=== PATIENT | female | born 1940 | race Asian ===

== ENCOUNTER 2016-11-04 12:19 | Emergency (ER) | payer MEDICARE, OTHER ==
[~2016-11-04] VITALS: Ht 152.4 cm; Wt 63.5 kg
[2016-11-04] MEDS ORDERED: DIPHTH,PERTUSS(ACELL),TET TOX 0.5 ML DISP.SYRIN. VAX IM ONE (12:45)
--- NOTE | 2016-11-04 12:50 | PHYS DOC ---
Past Medical History Past Medical History: Diabetes-Type II Additional Past Medical Histor: hyperlipidemia depression dementia gerd Alcohol Use: None Drug Use: None Adult General Chief Complaint Chief Complaint: MECHANICAL FALL HPI HPI 76-year-old nonverbal female presenting to the emergency department today with a witnessed fall without loss of consciousness. She sustained head injury and head trauma. She has a wound on the left side of her head. She has at baseline currently. Onset today. Location head. Duration constant. No alleviating or exacerbating factors. The patient is not on blood thinners. Review of systems is negative for chest pain shortness of breath abdominal pain nausea or vomiting. Negative for extremity injuries. All other review of systems is negative unless otherwise noted in history of present illness. Review of Systems Review of Systems SEE ABOVE. Current Medications Current Medications Current Medications Medications (Trade) Dose Ordered Sig/Scott Start Time Stop Time Status Last Admin Dose Admin Diphtheria/ Tetanus/Acell Pertussis (Boostrix) 0.5 ml ONCE ONCE 11/04/16 12:45 11/04/16 12:46 DC 11/04/16 13:06 0.5 ML Allergies Allergies Allergies Coded Allergies Type Severity Reaction Last Updated Verified doxycycline Allergy Unknown 11/04/16 Yes Physical Exam Physical Exam Constitutional: Well developed, well nourished, no acute distress, non-toxic appearance. HENT: Normocephalic, small hematoma on left scalp with 2cm laceration, bilateral external ears normal, oropharynx moist, no oral exudates, nose normal. [] Eyes: PERRLA, EOMI, conjunctiva normal, no discharge. [] Neck: Normal range of motion, no tenderness, supple, no stridor. Cardiovascular:Heart rate regular rhythm, no murmur [] Lungs & Thorax: Bilateral breath sounds clear to auscultation Abdomen: Bowel sounds normal, soft, no tenderness, no masses, no pulsatile masses. Skin: Warm, dry, no erythema, no rash. [] Back: No tenderness, no CVA tenderness. Extremities: No tenderness, no cyanosis, no clubbing, ROM intact, no edema. Neurologic: Alert and oriented X 3, normal motor function, normal sensory function, no focal deficits noted. Psychologic: Affect normal, judgement normal, mood normal. Current Patient Data Vital Signs Vital Signs Date Time Temp Pulse Resp B/P (MAP) Pulse Ox O2 Delivery O2 Flow Rate FiO2 11/04/16 12:20 98.1 91 14 176/81 (112) 95 Room Air 98.1 EKG EKG [] Radiology/Procedures Radiology/Procedures [] Course & Med Decision Making Course & Med Decision Making Pertinent Labs and Imaging studies reviewed. (See chart for details) [] 76-year-old female presenting to the emergency department today with mechanical fall and head trauma. Pertinent physical exam findings showed small hematoma on the left side of the scalp with a small laceration. Laceration was repaired in the emergency department with angella. CT of the head and neck were obtained which were unremarkable. The patient was then discharged home in stable condition to follow up with their primary care physician over the next 2- 3 days. They were to return if their symptoms worsened or if they were concerned for any reason. Patient's questions were answered to their satisfaction. Patient is comfortable plan. Dragon Disclaimer Dragon Disclaimer This electronic medical record was generated, in whole or in part, using a voice recognition dictation system. Departure Departure Impression: Primary Impression: Scalp laceration Additional Impression: Head injury Disposition: 01 HOME, SELF-CARE Condition: STABLE Referrals: ASHOK FAULKNER MD (PCP) Patient Instructions: Fall Prevention and Home Safety, Head Injury, Adult Additional Instructions: Thank you for allowing us to participate in your care today. Followup with your primary care physician in 3 days if your symptoms do not improve. If you do not have a primary care provider you can ask for a list of our primary care providers. Return to the emergency department you have any new or concerning findings. This should be evaluated by the primary care physician and any necessary consulting services for continued management within a few days after discharge. Return to emergency room if you have any new or concerning symptoms including but not limited to fever, chills, nausea, vomiting, intractable pain, any new rashes, chest pain, shortness of air, uncontrolled bleeding, difficulty breathing, and/or vision loss. Problem Qualifiers Primary Impression: Scalp laceration Encounter type: initial encounter Qualified Codes: S01.01XA - Laceration without foreign body of scalp, initial encounter Additional Impression: Head injury Encounter type: initial encounter Qualified Codes: S09.90XA - Unspecified injury of head, initial encounter ALISHA DOMINGUEZ MD November 04, 2016 12:50
--- NOTE | 2016-11-04 13:13 | RAD ---
CT of the head without contrast, 11/04/2016: History: Head injury There is a moderate scalp hematoma in the left parietal region with bubbles of gas in the soft tissues compatible with an associated laceration. No underlying calvarial fracture is identified. There is moderate cerebral atrophy. There is moderate decreased density in the deep white matter bilaterally compatible with chronic ischemic change. There is mild prominence of the ventricles, on a compensatory basis. The left lateral ventricle is larger than the right. There is no shift of the midline structures. There is no evidence of acute intracranial hemorrhage. There is calcific plaquing of the distal internal carotid and vertebral arteries. IMPRESSION: 1. Cerebral atrophy. 2. Moderate bilateral deep white matter lucencies compatible with chronic ischemic change. 3. No acute intracranial abnormality is detected. CT of the cervical spine without contrast, 11/04/2016: Noncontrast scans were obtained with multiplanar reconstructions produced. No fracture or dislocation is identified. There are mild scattered marginal spurs. There are mild degenerative changes involving scattered facet joints bilaterally. No significant spinal stenosis is evident. Streaky parenchymal opacities in both upper lobes are probably scars. There were scattered calcified plaques in the carotid arteries in the neck. IMPRESSION: 1. Mild degenerative change. 2. No acute bony abnormality is detected. PQRS Compliance Statement: One or more of the following individualized dose reduction techniques were utilized for this examination: 1. Automated exposure control 2. Adjustment of the mA and/or kV according to patient size 3. Use of iterative reconstruction technique
[2016-11-04 14:30] VITALS: BP 156/72
== END 2016-11-04 15:31 | disposition home or self-care (01) ==
LOC: ER 12:19
DX: S01.01XA Laceration without foreign body of scalp, initial encounter (principal); E11.9 Type 2 diabetes mellitus without complications; E78.5 Hyperlipidemia, unspecified; F32.9 Major depressive disorder, single episode, unspecified; F03.90 Unspecified dementia, unspecified severity, without behavioral disturbance, psychotic disturbance, mood disturbance, and anxiety; K21.9 Gastro-esophageal reflux disease without esophagitis; Z88.1 Allergy status to other antibiotic agents; W19.XXXA Unspecified fall, initial encounter; Y93.89 Activity, other specified; Y92.89 Other specified places as the place of occurrence of the external cause; Y99.8 Other external cause status
CPT/HCPCS: 12001; 70450; 72125; 90471; 90715; 99284-25

== ENCOUNTER 2018-05-10 09:14 | Inpatient (IN) | payer MEDICARE, OTHER ==
[~2018-05-10] VITALS: Ht 160 cm; Wt 47.3 kg
--- NOTE | 2018-05-10 09:31 | PHYS DOC ---
Past Medical History Past Medical History: CVA, Diabetes-Type II Additional Past Medical Histor: hyperlipidemia depression dementia gerd Past Surgical History: Other Additional Past Surgical Histo: unknown Alcohol Use: None Drug Use: None Social History Narrative: patient lives in a long term Adult General HPI HPI Patient is a 77-year-old female, who presents to the emergency department via EMS. According to EMS and long term report, the patient was eating breakfast , when she became unresponsive and was reportedly unresponsive for about 15 minutes. correction staff, and their telephone report, stated that the patient was hypotensive. Blood pressure about 70/40. EMS found the patient normotensive. Her blood sugar was over 400 for EMS. She does have a history of diabetes. She has not had any nausea or vomiting by history. The patient is nonverbal at baseline, possibly secondary to an old stroke, something she has a history of. She is not able to provide any history. She is awake and alert, and does appear to have at least some dementia, and is currently grabbing at things , such as my stethoscope and hands when I'm examining her. It is unclear if she is ambulatory at baseline or not. There is currently no family. History is limited by the patient's inability to provide any meaningful history, including the presence or absence of any pain. Review of Systems Review of Systems Unable to obtain review of systems secondary to dementia and nonverbal state. Current Medications Current Medications Current Medications Medications (Trade) Dose Ordered Sig/Scott Start Time Stop Time Status Last Admin Dose Admin Aspirin (Children'S Aspirin) 324 mg 1X ONCE 05/10/18 10:30 05/10/18 10:31 DC Ceftriaxone Sodium 50 ml @ 100 mls/hr 1X ONCE 05/10/18 10:30 05/10/18 10:59 DC 05/10/18 11:15 100 MLS/HR Sodium Chloride 1,000 ml @ 1,560 mls/hr Q39M 05/10/18 10:22 05/10/18 11:22 05/10/18 11:15 1,560 MLS/HR Allergies Allergies Allergies Coded Allergies Type Severity Reaction Last Updated Verified doxycycline Allergy Unknown 11/04/16 Yes Physical Exam Physical Exam PHYSICAL EXAM: CONSTITUTIONAL: Well developed, well nourished HEAD: normocephalic, atraumatic EENT: PERRL, EOMI. Conjunctivae normal color, sclerae non-icteric; moist mucous membranes. NECK: Supple, non-tender; no meningismus. LUNGS: Lungs CTA, breathing even and unlabored. Normal air movement. HEART: Mild tachycardia, with underlying regular rhythm with occasional ectopy. This corresponds with APCs on the cafeteria monitor. CHEST: No deformity; non-tender ABDOMEN: The abdomen is soft, and non-tender, no masses or bruits. EXTREM: Normal ROM; no deformity, no calf tenderness. Normal pulses palpable in all extremities. There is no pedal edema. SKIN: No rash; no diaphoresis NEURO: Alert; patient is nonverbal. She does appear to have some movement in her upper extremities bilaterally and her left lower extremity, with limited movement of her right lower extremity. Current Patient Data Vital Signs Vital Signs Date Time Temp Pulse Resp B/P (MAP) Pulse Ox O2 Delivery O2 Flow Rate FiO2 05/10/18 09:14 97.6 122 16 231/94 (139) 100 Nasal Cannula 2.0 97.6 Lab Values Laboratory Tests Test 05/10/18 09:21 05/10/18 09:30 05/10/18 09:39 Urine Collection Type U cath Urine Color Yellow Urine Clarity Clear Urine pH 7.0 Urine Specific [place] 1.015 Urine Protein 30 mg/dL (NEG-TRACE) Urine Glucose (UA) >=1000 mg/dL (NEG) Urine Ketones (Stick) Negative mg/dL (NEG) Urine Blood Small (NEG) Urine Nitrite Negative (NEG) Urine Bilirubin Negative (NEG) Urine Urobilinogen Dipstick 0.2 mg/dL (0.2 mg/dL) Urine Leukocyte Esterase Moderate (NEG) Urine RBC 3-5 /HPF (0-2) Urine WBC >40 /HPF (0-4) Urine Bacteria Moderate /HPF (0-FEW) White Blood Count 13.5 x10^3/uL (4.0-11.0) H Red Blood Count 4.93 x10^6/uL (3.50-5.40) Hemoglobin 14.1 g/dL (12.0-15.5) Hematocrit 43.2 % (36.0-47.0) Mean Corpuscular Volume 88 fL (79-100) Mean Corpuscular Hemoglobin 29 pg (25-35) Mean Corpuscular Hemoglobin Concent 33 g/dL (31-37) Red Cell Distribution Width 15.9 % (11.5-14.5) H Platelet Count 522 x10^3/uL (140-400) H Neutrophils (%) (Auto) 87 % (31-73) H Lymphocytes (%) (Auto) 10 % (24-48) L Monocytes (%) (Auto) 2 % (0-9) Eosinophils (%) (Auto) 0 % (0-3) Basophils (%) (Auto) 0 % (0-3) Neutrophils # (Auto) 11.8 x10^3uL (1.8-7.7) H Lymphocytes # (Auto) 1.4 x10^3/uL (1.0-4.8) Monocytes # (Auto) 0.3 x10^3/uL (0.0-1.1) Eosinophils # (Auto) 0.0 x10^3/uL (0.0-0.7) Basophils # (Auto) 0.1 x10^3/uL (0.0-0.2) Segmented Neutrophils % 88 % (35-66) H Lymphocytes % 11 % (24-48) L Monocytes % 1 % (0-10) Platelet Estimate Increased (ADEQUATE) Anisocytosis Slight Prothrombin Time 12.8 SEC (11.7-14.0) Prothrombin Time INR 1.0 (0.8-1.1) Sodium Level 151 mmol/L (136-145) H Potassium Level 3.3 mmol/L (3.5-5.1) L Chloride Level 107 mmol/L (98-107) Carbon Dioxide Level 30 mmol/L (21-32) Anion Gap 14 (6-14) Blood Urea Nitrogen 37 mg/dL (7-20) H Creatinine 1.7 mg/dL (0.6-1.0) H Estimated GFR (Cockcroft-Gault) 29.0 BUN/Creatinine Ratio 22 (6-20) H Glucose Level 377 mg/dL (70-99) H Lactic Acid Level 3.3 mmol/L (0.4-2.0) H Calcium Level 9.8 mg/dL (8.5-10.1) Magnesium Level 2.5 mg/dL (1.8-2.4) H Total Bilirubin 0.5 mg/dL (0.2-1.0) Aspartate Amino Transferase (AST) 24 U/L (15-37) Alanine Aminotransferase (ALT) 16 U/L (14-59) Alkaline Phosphatase 94 U/L (46-116) Troponin I Quantitative 0.524 ng/mL (0.000-0.055) TX-Xla-Z-Type Natriuretic Peptide 3705 pg/mL (0-449) H Total Protein 9.1 g/dL (6.4-8.2) H Albumin 3.7 g/dL (3.4-5.0) Albumin/Globulin Ratio 0.7 (1.0-1.7) L Acetone Level Neg (NEG) POC Venous pH 7.37 (7.32-7.42) POC Venous pCO2 51 mmHg (41-51) POC Venous pO2 27 mmHg (20-40) Venous Blood HCO3 30 mmol/L (24-28) H POC Venous O2 Saturation (Óscar) 48 % POC FiO2 27 Laboratory Tests 05/10/18 09:30 Laboratory Tests 05/10/18 09:30 EKG EKG [Normal sinus rhythm at a rate of 122 bpm, occasional APCs are present. Normal axis, normal intervals, nonspecific ST/T changes, primarily inferiorly/ laterally. There are no old EKGs available for comparison.] Radiology/Procedures Radiology/Procedures [PROCEDURE: PORTABLE CHEST 1V Exam: AP portable chest History: Syncope. Comparison: None. Findings: The heart and mediastinal structures are within normal limits for size. Lungs are without infiltrate. No pleural effusion or pneumothorax is identified. Aortic atherosclerosis is seen. Mild bilateral shoulder degeneration is seen. Impression: 1. No acute cardiopulmonary process.] PROCEDURE: CT HEAD WO CONTRAST CT head without intravenous contrast History: Syncope. Previous stroke. Comparison: CT head November 04, 2016. Technique: Axial images are obtained of the head from the skull base through the vertex without IV contrast. Exposure: One or more of the following individualized dose reduction techniques were utilized for this examination: 1. Automated exposure control 2. Adjustment of the mA and/or kV according to patient size 3. Use of iterative reconstruction technique Findings: There is moderate diffuse cerebral volume loss, thought to be mildly greater than expected for patient age. Extensive bilateral nonspecific white matter low-attenuation seen, probably from chronic microvascular ischemic disease. There is volume loss involving the left subinsular region and left basal ganglia, compatible with old infarction. 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 No obvious acute ischemic infarction is identified. No acute intracranial hemorrhage or intracranial mass is appreciated. Bone windows demonstrate no acute calvarial abnormality. Bilateral maxillary sinuses demonstrate changes of chronic sinusitis. Impression: 1. No acute intracranial process. Please note that CT can be relatively insensitive to acute ischemic infarction for up to 24 hours after symptom onset. 2. Nonspecific white matter changes, probably from chronic microvascular ischemic disease. Course & Med Decision Making Course & Med Decision Making Pertinent Labs and Imaging studies reviewed. (See chart for details) [10:30 AM: The patient's condition remained stable. She appears to be ] septic from urinary tract infection. The cause of her cardiac ischemia, evident on her EKG and elevated troponin is unclear, although this could be secondary to sepsis. I discussed the case with MAJOR andre for cardiology, and the patient will be admitted to the hospitalist to a monitored bed. CRITICAL CARE TIME: 45] Minutes, excluding any procedures and care of other patients. Dragon Disclaimer Dragon Disclaimer This electronic medical record was generated, in whole or in part, using a voice recognition dictation system. Departure Departure Impression: Primary Impression: Sepsis Additional Impressions: Myocardial infarction Renal failure Syncope UTI (urinary tract infection) Disposition: ADMITTED INPATIENT Admitting Physician: Litzy Haddad Condition: GUARDED Referrals: JIGAR CERDA MD (PCP) Problem Qualifiers MONE STALLINGS MD May 10, 2018 09:31
--- NOTE | 2018-05-10 09:33 | EKG ---
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
[2018-05-10 09:43] LABS: ISTAT BE VENOUS 4 mmol/L (0-3); ISTAT HCO3 VEN 30 mmol/L (24-28); ISTAT PCO2 VEN 51 mmHg (41-51); ISTAT PO2 VEN 27 mmHg (20-40); ISTAT SAT O2 VEN 48 %; ISTAT TCO2 VEN 31 mmol/L (21-32)
[2018-05-10] MEDS ORDERED: IV NORMAL SALINE 1000ML BAG 1,000 ML IV SCH (09:45)
[2018-05-10 09:46] LABS: BASO # 0.1 x10^3/uL (0.0-0.2); BASO % 0 % (0-3); EOS % 0 % (0-3); HEMATOCRIT 43.2 % (36.0-47.0); HEMOGLOBIN 14.1 g/dL (12.0-15.5); LYMPH # 1.4 x10^3/uL (1.0-4.8); LYMPH % 10 % (24-48); MEAN CORPUSCULAR HEMOGLOBIN 29 pg (25-35); MEAN CORPUSCULAR HGB CONC 33 g/dL (31-37); MEAN CORPUSCULAR VOLUME 88 fL (79-100); MONO # 0.3 x10^3/uL (0.0-1.1); MONO % 2 % (0-9); NEUT # 11.8 x10^3uL (1.8-7.7); NEUT % 87 % (31-73); PLATELET COUNT 522 x10^3/uL (140-400); RED BLOOD COUNT 4.93 x10^6/uL (3.50-5.40); RED CELL DISTRIBUTION WIDTH 15.9 % (11.5-14.5); WHITE BLOOD COUNT 13.5 x10^3/uL (4.0-11.0)
[2018-05-10 09:48] LABS: BILIRUBIN,URINE NEGATIVE (NEG); CLARITY,URINE CLEAR; COLOR,URINE YELLOW; NITRITE,URINE NEGATIVE (NEG); PROTEIN,URINE 30 mg/dL (NEG-TRACE); UROBILINOGEN,URINE 0.2 mg/dL (0.2 mg/dL)
[2018-05-10 09:54] LABS: PROTHROMBIN TIME PATIENT 12.8 SEC (11.7-14.0)
--- NOTE | 2018-05-10 09:54 | RAD ---
Exam: AP portable chest History: Syncope. Comparison: None. Findings: The heart and mediastinal structures are within normal limits for size. Lungs are without infiltrate. No pleural effusion or pneumothorax is identified. Aortic atherosclerosis is seen. Mild bilateral shoulder degeneration is seen. Impression: 1. No acute cardiopulmonary process. Electronically signed by: Ezio Valente MD (05/10/2018 9:50 AM) [facility]
[2018-05-10 09:58] LABS: BACTERIA,URINE MODERATE /HPF (0-FEW); WBC,URINE >40 /HPF (0-4)
[2018-05-10 10:05] LABS: ANION GAP 14 (6-14); BLOOD UREA NITROGEN 37 mg/dL (7-20); BUN/CREATININE RATIO 22 (6-20); CALCIUM 9.8 mg/dL (8.5-10.1); CARBON DIOXIDE 30 mmol/L (21-32); CHLORIDE 107 mmol/L (98-107); CREATININE 1.7 mg/dL (0.6-1.0); GLUCOSE 377 mg/dL (70-99); POTASSIUM 3.3 mmol/L (3.5-5.1); SODIUM 151 mmol/L (136-145)
[2018-05-10 10:17] LABS: FIO2 VENOUS ISTAT 27
[2018-05-10 10:18] LABS: ALBUMIN 3.7 g/dL (3.4-5.0); ALBUMIN/GLOBULIN RATIO 0.7 (1.0-1.7); ALK PHOS 94 U/L (46-116); ALT (SGPT) 16 U/L (14-59); AST (SGOT) 24 U/L (15-37); MAGNESIUM 2.5 mg/dL (1.8-2.4); TOTAL BILIRUBIN 0.5 mg/dL (0.2-1.0); TOTAL PROTEIN 9.1 g/dL (6.4-8.2)
[2018-05-10 10:18] LABS: ISTAT PH VEN 7.37 (7.32-7.42)
--- NOTE | 2018-05-10 10:25 | RAD ---
CT head without intravenous contrast History: Syncope. Previous stroke. Comparison: CT head November 04, 2016. Technique: Axial images are obtained of the head from the skull base through the vertex without IV contrast. Exposure: One or more of the following individualized dose reduction techniques were utilized for this examination: 1. Automated exposure control 2. Adjustment of the mA and/or kV according to patient size 3. Use of iterative reconstruction technique Findings: There is moderate diffuse cerebral volume loss, thought to be mildly greater than expected for patient age. Extensive bilateral nonspecific white matter low-attenuation seen, probably from chronic microvascular ischemic disease. There is volume loss involving the left subinsular region and left basal ganglia, compatible with old infarction. 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 No obvious acute ischemic infarction is identified. No acute intracranial hemorrhage or intracranial mass is appreciated. Bone windows demonstrate no acute calvarial abnormality. Bilateral maxillary sinuses demonstrate changes of chronic sinusitis. Impression: 1. No acute intracranial process. Please note that CT can be relatively insensitive to acute ischemic infarction for up to 24 hours after symptom onset. 2. Nonspecific white matter changes, probably from chronic microvascular ischemic disease. Electronically signed by: Ezio Valente MD (05/10/2018 10:21 AM) [facility]
[2018-05-10] MEDS ORDERED: ASPIRIN CHEWABLE 81 MG TABLET. PO ONE (10:30)
[2018-05-10 10:35] LABS: ACETONE NEG (NEG)
[2018-05-10 10:42] LABS: % LYMPHS 11 % (24-48); % MONOS 1 % (0-10); % SEGS 88 % (35-66)
[2018-05-10 10:43] LABS: PLT ESTIMATE INCREASED (ADEQUATE)
[2018-05-10 10:44] LABS: ANISOCYTOSIS SLIGHT
[2018-05-10] MEDS: IV NORMAL SALINE 1000ML BAG 1,000 ML IV SCH ×2 (11:01→11:15)
[2018-05-10] MEDS ORDERED: ASPIRIN 300 MG SUPP.RECT PR ONE (11:30)
[2018-05-10 12:30] VITALS: BP 223/94
[2018-05-10] MEDS ORDERED: DEXTROSE 50% 25 GM / 50ML DISP.SYRIN. IV PRN (12:45)
[2018-05-10] MEDS ORDERED: ONDANSETRON PF 4 MG/2 ML VIAL. IV PRN (12:45)
[2018-05-10] MEDS ORDERED: ACETAMINOPHEN 500 MG TABLET PO PRN ×2 (12:45→14:15)
[2018-05-10] MEDS ORDERED: ONDANSETRON ODT 4 MG TAB.RAPDIS. PO PRN (12:45)
[2018-05-10 12:47] VITALS: BP 122/80
--- NOTE | 2018-05-10 12:48 | PDOC1 ---
History and Physical Date of Admission Date of Admission DATE: 05/10/18 TIME: 12:35 Identification/Chief Complaint Chief Complaint change in MS Source Source: Caregiver, Chart review, Patient History of Present Illness History of Present Illness 77-year-old SNU resident, nobody at bedside, she is nonverbal to me but she looks at me. I'm unsure if she understands [place] or she just cannot talk. SHe is a DNR Apprently sent by staff because of change in mental status and syncope and breakfast LOC 5 or 15 minutes ? but did not fall. Blood sugars 400s, elevated platelets at 562 with leukocytosis 13.5. Initially thought to have UTI hence got Rocephin. Sodium 151, they say she takes a regular diet in SNU. Could not help but wonder that most likely she has been poor by mouth for the past few days given his hypernatremia and hypokalemia with a creatinine of 1.7 a potassium 3.3. NO PEG NO wounds, no leg swelling, unsure if ambulation I'm still waiting for SNU meds Pharmacy, half-normal saline has more sodium than ProcalAmine Technically I would want to do dextrose for the hypernatremia of 151 but then blood sugars are 400s. Hence we'll start ProcalAmine for now, if the sodium after hydration remains high tomorrow then and blood sugar much better than consider dextrose IVF along with increase coverage for hyperglycemia Past Medical History Endocrine: Diabetes Past Surgical History Past Surgical History: No pertinent history Family History Family History: Family History Unknown Social History Smoke: No ALCOHOL: none Drugs: None Current Problem List Problem List Problems Medical Problems: (1) Myocardial infarction Status: Acute (2) Renal failure Status: Acute (3) Sepsis Status: Acute (4) Syncope Status: Acute (5) UTI (urinary tract infection) Status: Acute Current Medications Current Medications Current Medications Sodium Chloride 1,000 ml @ 100 mls/hr Q10H IV Last administered on 05/10/18at 10:17; Start 05/10/18 at 09:45; Stop 05/10/18 at 19:44 Sodium Chloride 1,000 ml @ 1,560 mls/hr Q39M IV Last administered on at 11:15; Start 05/10/18 at 10:22; Stop 05/10/18 at 11:22; Status DC Ceftriaxone Sodium 50 ml @ 100 mls/hr 1X ONCE IV Last administered on at 11:15; Start 05/10/18 at 10:30; Stop 05/10/18 at 10:59; Status DC Aspirin (Children'S Aspirin) 324 mg 1X ONCE PO ; Start 05/10/18 at 10:30; Stop 05/10/18 at 10:31; Status DC Aspirin (Aspirin) 300 mg 1X ONCE [place] ; Start 05/10/18 at 11:30; Stop 05/10/18 at 11:33; Status DC Allergies Allergies: Coded Allergies: doxycycline (Verified Allergy, Unknown, 11/04/16) ROS Review of System could Not be obtained as she is nonverbal to me Physical Exam General: No acute distress, Other (not cooperative, nonverbal to me per choice) HEENT: Atraumatic, PERRLA, EOMI, Other (dry mucous membranes) Lungs: Clear to auscultation, Normal air movement Cardiovascular: S1, S2 Breasts: Normal, Rt breast nml w/o mass, Lt breast nml w/o mass, Nipples normal Abdomen: Normal bowel sounds, Soft, No tenderness, No hepatosplenomegaly, No masses Rectal Exam: not examined PELVIC: Nml ext genitalia Extremities: No clubbing, No cyanosis, No edema, Normal pulses, No tenderness/ swelling Skin: No rashes, No breakdown, No significant lesion Neuro: Normal gait, Normal speech, Strength at 5/5 X4 ext, Normal tone, Sensation intact, Cranial nerves 3-12 NL, Reflexes 2+ Psych/Mental Status: Mental status NL, Mood NL Vitals Vitals Vital Signs Date Time Temp Pulse Resp B/P (MAP) Pulse Ox O2 Delivery O2 Flow Rate FiO2 05/10/18 11:00 114 14 100 05/10/18 09:14 97.6 231/94 (139) Nasal Cannula 2.0 97.6 Labs Labs Laboratory Tests Test 05/10/18 09:21 05/10/18 09:30 05/10/18 09:39 Urine Collection Type U cath Urine Color Yellow Urine Clarity Clear Urine pH 7.0 Urine Specific [place] 1.015 Urine Protein 30 mg/dL (NEG-TRACE) Urine Glucose (UA) >=1000 mg/dL (NEG) Urine Ketones (Stick) Negative mg/dL (NEG) Urine Blood Small (NEG) Urine Nitrite Negative (NEG) Urine Bilirubin Negative (NEG) Urine Urobilinogen Dipstick 0.2 mg/dL (0.2 mg/dL) Urine Leukocyte Esterase Moderate (NEG) Urine RBC 3-5 /HPF (0-2) Urine WBC >40 /HPF (0-4) Urine Bacteria Moderate /HPF (0-FEW) White Blood Count 13.5 x10^3/uL (4.0-11.0) Red Blood Count 4.93 x10^6/uL (3.50-5.40) Hemoglobin 14.1 g/dL (12.0-15.5) Hematocrit 43.2 % (36.0-47.0) Mean Corpuscular Volume 88 fL (79-100) Mean Corpuscular Hemoglobin 29 pg (25-35) Mean Corpuscular Hemoglobin Concent 33 g/dL (31-37) Red Cell Distribution Width 15.9 % (11.5-14.5) Platelet Count 522 x10^3/uL (140-400) Neutrophils (%) (Auto) 87 % (31-73) Lymphocytes (%) (Auto) 10 % (24-48) Monocytes (%) (Auto) 2 % (0-9) Eosinophils (%) (Auto) 0 % (0-3) Basophils (%) (Auto) 0 % (0-3) Neutrophils # (Auto) 11.8 x10^3uL (1.8-7.7) Lymphocytes # (Auto) 1.4 x10^3/uL (1.0-4.8) Monocytes # (Auto) 0.3 x10^3/uL (0.0-1.1) Eosinophils # (Auto) 0.0 x10^3/uL (0.0-0.7) Basophils # (Auto) 0.1 x10^3/uL (0.0-0.2) Segmented Neutrophils % 88 % (35-66) Lymphocytes % 11 % (24-48) Monocytes % 1 % (0-10) Platelet Estimate Increased (ADEQUATE) Anisocytosis Slight Prothrombin Time 12.8 SEC (11.7-14.0) Prothromb Time International Ratio 1.0 (0.8-1.1) Sodium Level 151 mmol/L (136-145) Potassium Level 3.3 mmol/L (3.5-5.1) Chloride Level 107 mmol/L (98-107) Carbon Dioxide Level 30 mmol/L (21-32) Anion Gap 14 (6-14) Blood Urea Nitrogen 37 mg/dL (7-20) Creatinine 1.7 mg/dL (0.6-1.0) Estimated GFR (Cockcroft-Gault) 29.0 BUN/Creatinine Ratio 22 (6-20) Glucose Level 377 mg/dL (70-99) Lactic Acid Level 3.3 mmol/L (0.4-2.0) Calcium Level 9.8 mg/dL (8.5-10.1) Magnesium Level 2.5 mg/dL (1.8-2.4) Total Bilirubin 0.5 mg/dL (0.2-1.0) Aspartate Amino Transf (AST/SGOT) 24 U/L (15-37) Alanine Aminotransferase (ALT/SGPT) 16 U/L (14-59) Alkaline Phosphatase 94 U/L (46-116) Troponin I Quantitative 0.524 ng/mL (0.000-0.055) CK-Ugh-C-Type Natriuretic Peptide 3705 pg/mL (0-449) Total Protein 9.1 g/dL (6.4-8.2) Albumin 3.7 g/dL (3.4-5.0) Albumin/Globulin Ratio 0.7 (1.0-1.7) Acetone Level Neg (NEG) Bedside Venous pH 7.37 (7.32-7.42) Bedside Venous pCO2 51 mmHg (41-51) Bedside Venous pO2 27 mmHg (20-40) Venous Blood HCO3 30 mmol/L (24-28) POC Venous O2 Saturation (Óscar) 48 % Bedside FiO2 27 Laboratory Tests Test 05/10/18 09:21 05/10/18 09:30 05/10/18 09:39 Urine Collection Type U cath Urine Color Yellow Urine Clarity Clear Urine pH 7.0 Urine Specific [place] 1.015 Urine Protein 30 mg/dL (NEG-TRACE) Urine Glucose (UA) >=1000 mg/dL (NEG) Urine Ketones (Stick) Negative mg/dL (NEG) Urine Blood Small (NEG) Urine Nitrite Negative (NEG) Urine Bilirubin Negative (NEG) Urine Urobilinogen Dipstick 0.2 mg/dL (0.2 mg/dL) Urine Leukocyte Esterase Moderate (NEG) Urine RBC 3-5 /HPF (0-2) Urine WBC >40 /HPF (0-4) Urine Bacteria Moderate /HPF (0-FEW) White Blood Count 13.5 x10^3/uL (4.0-11.0) Red Blood Count 4.93 x10^6/uL (3.50-5.40) Hemoglobin 14.1 g/dL (12.0-15.5) Hematocrit 43.2 % (36.0-47.0) Mean Corpuscular Volume 88 fL (79-100) Mean Corpuscular Hemoglobin 29 pg (25-35) Mean Corpuscular Hemoglobin Concent 33 g/dL (31-37) Red Cell Distribution Width 15.9 % (11.5-14.5) Platelet Count 522 x10^3/uL (140-400) Neutrophils (%) (Auto) 87 % (31-73) Lymphocytes (%) (Auto) 10 % (24-48) Monocytes (%) (Auto) 2 % (0-9) Eosinophils (%) (Auto) 0 % (0-3) Basophils (%) (Auto) 0 % (0-3) Neutrophils # (Auto) 11.8 x10^3uL (1.8-7.7) Lymphocytes # (Auto) 1.4 x10^3/uL (1.0-4.8) Monocytes # (Auto) 0.3 x10^3/uL (0.0-1.1) Eosinophils # (Auto) 0.0 x10^3/uL (0.0-0.7) Basophils # (Auto) 0.1 x10^3/uL (0.0-0.2) Segmented Neutrophils % 88 % (35-66) Lymphocytes % 11 % (24-48) Monocytes % 1 % (0-10) Platelet Estimate Increased (ADEQUATE) Anisocytosis Slight Prothrombin Time 12.8 SEC (11.7-14.0) Prothromb Time International Ratio 1.0 (0.8-1.1) Sodium Level 151 mmol/L (136-145) Potassium Level 3.3 mmol/L (3.5-5.1) Chloride Level 107 mmol/L (98-107) Carbon Dioxide Level 30 mmol/L (21-32) Anion Gap 14 (6-14) Blood Urea Nitrogen 37 mg/dL (7-20) Creatinine 1.7 mg/dL (0.6-1.0) Estimated GFR (Cockcroft-Gault) 29.0 BUN/Creatinine Ratio 22 (6-20) Glucose Level 377 mg/dL (70-99) Lactic Acid Level 3.3 mmol/L (0.4-2.0) Calcium Level 9.8 mg/dL (8.5-10.1) Magnesium Level 2.5 mg/dL (1.8-2.4) Total Bilirubin 0.5 mg/dL (0.2-1.0) Aspartate Amino Transf (AST/SGOT) 24 U/L (15-37) Alanine Aminotransferase (ALT/SGPT) 16 U/L (14-59) Alkaline Phosphatase 94 U/L (46-116) Troponin I Quantitative 0.524 ng/mL (0.000-0.055) LM-Vuy-A-Type Natriuretic Peptide 3705 pg/mL (0-449) Total Protein 9.1 g/dL (6.4-8.2) Albumin 3.7 g/dL (3.4-5.0) Albumin/Globulin Ratio 0.7 (1.0-1.7) Acetone Level Neg (NEG) Bedside Venous pH 7.37 (7.32-7.42) Bedside Venous pCO2 51 mmHg (41-51) Bedside Venous pO2 27 mmHg (20-40) Venous Blood HCO3 30 mmol/L (24-28) POC Venous O2 Saturation (Óscar) 48 % Bedside FiO2 27 VTE Prophylaxis Ordered VTE Prophylaxis Devices: Yes VTE Pharmacological Prophylaxi: Yes Assessment/Plan Assessment/Plan Met enCephalopathy, could be secondary to dehydration Hypernatremia in an SNU resident Hypokalemia in the background of AK I likely VMN DNR HO NK, history of diabetes likely-still waiting on home meds Sepsis, flag sepsis-elevated lactate 3 on admit Abnormal EKG with ST depression in inferior lateral leads GERiatric, gen weakness r.o dysphagia Accel HTN - labetolol prn, waiting on home meds Plan: Admitted to [facility] floor ProcalAmine has less sodium so we'll do that NovoLog 10 1. 10 units lispro 3 times a day since we are still pending home meds from SNU Levemir 20 units daily at bedtime But once we get home meds for SNU then we can defer back to that regimen Troponin 0.5-4, cardiology consulted, abnormal EKG DNR Hold off insulin drip for now, check hemoglobin A1c Sliding-scale insulin high-dose and sugar orders as above Address hyponatremia with ProcalAmine hydration ProcAlamine has the sodium than half normal saline Technically dextrose IV after address the hypernatremia but sodium is just way too high for that now Recheck labs tomorrow HOld off renal consult fornow - we might able to fix renal numbers with hydration Discussed with PALLAVI CHURCH MD May 10, 2018 12:48
[2018-05-10] MEDS ORDERED: INSULIN LISPRO 300 UNITS/3 ML INSULN.PEN. SQ ONE (13:00)
[2018-05-10] MEDS ORDERED: LABETALOL 20 MG/4 ML DISP.SYRIN. IVP ONE (13:00)
--- NOTE | 2018-05-10 13:07 | PDOC2 ---
CARDIAC CONSULT DATE OF CONSULT Date of Consult DATE: 05/10/18 TIME: 12:52 REASON FOR CONSULT Reason for Consult: [place] REFERRING PHYSICIAN Referring Physician: Dr. De SOURCE Source: Chart review, Patient HISTORY OF PRESENT ILLNESS HISTORY OF PRESENT ILLNESS This is a 77 yo female who presented from nursing facility secondary to altered mental status/syncopal event. Was apparently at breakfast this morning and went unresponsive. Was reportedly unresponsive for approximately 15 minutes. Patient was noted to be hypotensive with a blood pressure around 70/40. EMS was called. Patient was normotensive upon EMS arrival. Blood sugar 400. No reports of fevers , illness, or nausea/vomiting. Patient is non-verbal at baseline. HPI obtained from chart review as family is not present. Is presently awake and alert. PAST MEDICAL HISTORY Cardiovascular: HTN, Hyperlipidemia Pulmonary: No pertinent hx CENTRAL NERVOUS SYSTEM: CVA, Dementia GI: GERD Heme/Onc: No pertinent hx Hepatobiliary: No pertinent hx Psych: Depression Musculoskeletal: Osteoarthritis Rheumatologic: No pertinent hx Infectious disease: No pertinent hx ENT: No pertinent hx Renal/: Chronic renal insuff Endocrine: Diabetes Dermatology: No pertinent hx PAST SURGICAL HISTORY Past Surgical History: No pertinent history FAMILY HISTORY Family History: Family History Unknown SOCIAL HISTORY ALCOHOL: none Drugs: None Lives: Jail CURRENT MEDICATIONS CURRENT MEDICATIONS Current Medications Medications (Trade) Dose Ordered Sig/Scott Route PRN Reason Start Time Stop Time Status Last Admin Dose Admin Sodium Chloride 1,000 ml @ 100 mls/hr Q10H IV 05/10/18 09:45 05/10/18 12:49 DC 05/10/18 10:17 Sodium Chloride 1,000 ml @ 1,560 mls/hr Q39M IV 05/10/18 10:22 05/10/18 11:22 DC 05/10/18 11:15 Ceftriaxone Sodium 50 ml @ 100 mls/hr 1X ONCE IV 05/10/18 10:30 05/10/18 10:59 DC 05/10/18 11:15 ALLERGIES ALLERGIES: Coded Allergies: doxycycline (Verified Allergy, Unknown, 11/04/16) ROS Review of System unobtainable. PHYSICAL EXAM General: Alert, No acute distress HEENT: Atraumatic, Mucous membr. moist/pink Lungs: Clear to auscultation Heart: Regular rate, Normal S1, Normal S2, Other (2/6 systolic murmur ) Abdomen: Soft Extremities: No edema, Normal pulses Skin: No breakdown, No significant lesion Neuro: Sensation intact Psych/Mental Status: Other (non-verbal ) MUSCULOSKELETAL: No deformity VITALS VITALS Vital Signs Date Time Temp Pulse Resp B/P (MAP) Pulse Ox O2 Delivery O2 Flow Rate FiO2 05/10/18 12:47 122/80 (94) 05/10/18 12:30 98.3 103 16 98 Room Air 98.3 05/10/18 09:14 2.0 LABS Lab: Laboratory Tests Test 05/10/18 09:21 05/10/18 09:30 05/10/18 09:39 Urine Collection Type U cath Urine Color Yellow Urine Clarity Clear Urine pH 7.0 Urine Specific [place] 1.015 Urine Protein 30 mg/dL (NEG-TRACE) Urine Glucose (UA) >=1000 mg/dL (NEG) Urine Ketones (Stick) Negative mg/dL (NEG) Urine Blood Small (NEG) Urine Nitrite Negative (NEG) Urine Bilirubin Negative (NEG) Urine Urobilinogen Dipstick 0.2 mg/dL (0.2 mg/dL) Urine Leukocyte Esterase Moderate (NEG) Urine RBC 3-5 /HPF (0-2) Urine WBC >40 /HPF (0-4) Urine Bacteria Moderate /HPF (0-FEW) White Blood Count 13.5 x10^3/uL (4.0-11.0) Red Blood Count 4.93 x10^6/uL (3.50-5.40) Hemoglobin 14.1 g/dL (12.0-15.5) Hematocrit 43.2 % (36.0-47.0) Mean Corpuscular Volume 88 fL (79-100) Mean Corpuscular Hemoglobin 29 pg (25-35) Mean Corpuscular Hemoglobin Concent 33 g/dL (31-37) Red Cell Distribution Width 15.9 % (11.5-14.5) Platelet Count 522 x10^3/uL (140-400) Neutrophils (%) (Auto) 87 % (31-73) Lymphocytes (%) (Auto) 10 % (24-48) Monocytes (%) (Auto) 2 % (0-9) Eosinophils (%) (Auto) 0 % (0-3) Basophils (%) (Auto) 0 % (0-3) Neutrophils # (Auto) 11.8 x10^3uL (1.8-7.7) Lymphocytes # (Auto) 1.4 x10^3/uL (1.0-4.8) Monocytes # (Auto) 0.3 x10^3/uL (0.0-1.1) Eosinophils # (Auto) 0.0 x10^3/uL (0.0-0.7) Basophils # (Auto) 0.1 x10^3/uL (0.0-0.2) Segmented Neutrophils % 88 % (35-66) Lymphocytes % 11 % (24-48) Monocytes % 1 % (0-10) Platelet Estimate Increased (ADEQUATE) Anisocytosis Slight Prothrombin Time 12.8 SEC (11.7-14.0) Prothromb Time International Ratio 1.0 (0.8-1.1) Sodium Level 151 mmol/L (136-145) Potassium Level 3.3 mmol/L (3.5-5.1) Chloride Level 107 mmol/L (98-107) Carbon Dioxide Level 30 mmol/L (21-32) Anion Gap 14 (6-14) Blood Urea Nitrogen 37 mg/dL (7-20) Creatinine 1.7 mg/dL (0.6-1.0) Estimated GFR (Cockcroft-Gault) 29.0 BUN/Creatinine Ratio 22 (6-20) Glucose Level 377 mg/dL (70-99) Lactic Acid Level 3.3 mmol/L (0.4-2.0) Calcium Level 9.8 mg/dL (8.5-10.1) Magnesium Level 2.5 mg/dL (1.8-2.4) Total Bilirubin 0.5 mg/dL (0.2-1.0) Aspartate Amino Transf (AST/SGOT) 24 U/L (15-37) Alanine Aminotransferase (ALT/SGPT) 16 U/L (14-59) Alkaline Phosphatase 94 U/L (46-116) Troponin I Quantitative 0.524 ng/mL (0.000-0.055) HI-Yot-T-Type Natriuretic Peptide 3705 pg/mL (0-449) Total Protein 9.1 g/dL (6.4-8.2) Albumin 3.7 g/dL (3.4-5.0) Albumin/Globulin Ratio 0.7 (1.0-1.7) Acetone Level Neg (NEG) Bedside Venous pH 7.37 (7.32-7.42) Bedside Venous pCO2 51 mmHg (41-51) Bedside Venous pO2 27 mmHg (20-40) Venous Blood HCO3 30 mmol/L (24-28) POC Venous O2 Saturation (Óscar) 48 % Bedside FiO2 27 ASSESSMENT/PLAN ASSESSMENT/PLAN 1. NSTEMI; initial 0.5. Possible type II, demand ischemia given malignant hypertension and MANDEEP, but type I cannot be rule out. EKG with non-specific ST/T changes. 2. Malignant hypertension; better controlled 3. Syncope; LOC at breakfast. etiology unclear 4. Metabolic encephalopathy; CT head negative for acute changes 5. MANDEEP on CKD; dehydration 6. Hypokalemia; replaced. Mg 2.5 7. Leukocytosis, lactic acidosis 8. DM,II 9. H/o CVA; non-verbal Recommendations Agree with IVFs Trend troponin Add ASA, BB. Continue statin No ACEi with MANDEEP Obtain echo to assess LV function Supportive care from a CV standpoint JUNO BHANDARI APRN May 10, 2018 13:07
[2018-05-10] MEDS ORDERED: MAGN400O7 PO (13:15)
[2018-05-10] MEDS ORDERED: ATOR10TA PO (13:15)
[2018-05-10] MEDS ORDERED: ACET500T68 PO (13:15)
[2018-05-10] MEDS ORDERED: INSU100I13 SQ (13:15)
[2018-05-10] MEDS ORDERED: MELA3TAB2 PO (13:15)
[2018-05-10] MEDS ORDERED: BISA10SU2 RC (13:15)
[2018-05-10] MEDS ORDERED: CALC-474 PO (13:15)
[2018-05-10] MEDS ORDERED: DOCU100C28 PO (13:15)
[2018-05-10] MEDS ORDERED: NYST100054 PO (13:15)
[2018-05-10] MEDS ORDERED: PHEN57OI RC (13:15)
[2018-05-10] MEDS ORDERED: INSU100I17 SQ (13:15)
[2018-05-10] MEDS ORDERED: CHLO15MO2 MM (13:15)
[2018-05-10] MEDS ORDERED: MAGNESIUM HYDROXIDE 2,400 MG/30 ML ORAL.SUSP. PO PRN (14:15)
[2018-05-10] MEDS ORDERED: BISACODYL 10 MG SUPP.RECT. RC PRN (14:15)
[2018-05-10] MEDS ORDERED: POTASSIUM CHLORIDE 20 MEQ TABLET.ER. PO ONE (14:30)
[2018-05-10 15:00] VITALS: BP 152/72
[2018-05-10] MEDS: CHLORHEXIDINE 0.12% 15 ML MOUTHWASH. MM SCH ×2 (15:00→21:00)
[2018-05-10] MEDS: AMINO AC 3%/ELECTROLYTE/GLYCER 1,000 ML IV SCH (15:15)
[2018-05-10] MEDS ORDERED: ASPIRIN 325 MG TABLET PO ONE (15:30)
--- NOTE | 2018-05-10 16:00 | CARD ---
MR#: [id number] Date of Study: 05/10/2018 Ordering Physician: JUNO BHANDARI, Referring Physician: PALLAVI DELGADO Tech: Sherrill Boyd ELEONORA APPROVED REPORT EXAM: Two-dimensional and M-mode echocardiogram with Doppler and color Doppler. Other Information Quality : Technically LimitedHR: 104bpm Rhythm : Tachycardia INDICATION Dyspnea 2D DIMENSIONS RVDd2.4 (2.9-3.5cm)Left Atrium(2D)3.6 (1.6-4.0cm) IVSd1.4 (0.7-1.1cm)Aortic Root(2D)3.0 (2.0-3.7cm) LVDd3.5 (3.9-5.9cm)LVOT Diameter3.0 (1.8-2.4cm) PWd0.9 (0.7-1.1cm)LVDs2.0 (2.5-4.0cm) FS (%) 43.3 %SV38.4 ml LVEF(%)75.5 (>50%) M-Mode DIMENSIONS Left Atrium(MM)3.95 (2.5-4.0cm)Aortic Root2.60 (2.2-3.7cm) Aortic Valve AoV Peak See.148.7cm/sAoV VTI21.1cm AO Peak GR.8.8mmHgLVOT VTI 13.01cm AO Mean GR.5mmHgAVA (VTI)3.00cm2 Mitral Valve MV E Ievtcnzn68.0cm/sMV E Peak Gr.3mmHg MV DECEL [id number] A Aqfgussd094.8cm/s MV E Mean Gr.1mmHgE/A Ratio0.5 MV A [id number] TDI Lateral E' P. V9.76cm/sMedial E' P. V7.31cm/s E/Lateral E'5.2E/Medial E'7.0 Tricuspid Valve TR P. Efnrorts064py/sRAP [id number] TR Peak Gr.92emRkNMJV00enDe Pulmonary Vein S1 Qdnsjvpo47.2cm/sS2 Gtxpfukp33.42cm/s D2 Texhmenn91.4cm/sPVa [id number] LEFT VENTRICLE The left ventricle cavity is small. Proximal septal thickening is noted. Hyperdynamic left ventricula r systolic function. The Ejection Fraction is >70%. There is normal LV segmental wall motion. Transmi tral Doppler flow pattern is Grade I-abnormal relaxation pattern. RIGHT VENTRICLE The right ventricle is normal size. There is normal right ventricular wall thickness. The right ventr icular systolic function is normal. ATRIA The left atrium size is normal. The right atrium size is normal. The interatrial septum is intact wit h no evidence for an atrial septal defect or patent foramen ovale as noted on 2-D or Doppler imaging. AORTIC VALVE The aortic valve is calcified but opens well. The aortic valve is trileaflet. Doppler and Color Flow revealed trace aortic regurgitation. There is no significant aortic valvular stenosis. MITRAL VALVE Mitral annular calcification is mild. There is no evidence of mitral valve prolapse. There is no mitr al valve stenosis. Doppler and Color-flow revealed trace mitral regurgitation. TRICUSPID VALVE The tricuspid valve is normal in structure and function. Doppler and Color Flow revealed trace tricus pid regurgitation. The PA pressure was estimated at 28 mmHg. There is no tricuspid valve prolapse or vegetation. There is no tricuspid valve stenosis. PULMONIC VALVE Pulmonic valve not well visualized. GREAT VESSELS The aortic root is normal in size. The ascending aorta is normal in size. The IVC is normal in size a nd collapses >50% with inspiration. PERICARDIAL EFFUSION There is no evidence of significant pericardial effusion. Critical Notification Critical Value: No <Conclusion> Hyperdynamic left ventricular systolic function. The Ejection Fraction is >70%. There is normal LV segmental wall motion. Transmitral Doppler flow pattern is Grade I-abnormal relaxation pattern. Trace mitral regurgitation. Trace tricuspid regurgitation. The PA pressure was estimated at 28 mmHg. There is no evidence of significant pericardial effusion. Signed by : Naseem Gee, Electronically Approved : 05/10/2018 15:59:05
[2018-05-10] MEDS ORDERED: INSULIN LISPRO 300 UNITS/3 ML INSULN.PEN. SQ SCH (16:30)
--- NOTE | 2018-05-10 16:50 | PDOC ---
Provider Note Provider Note Second troponin level noted at 2.5. No acute changes on telemetry. Patient resting comfortable without obvious non-verbal pain symptoms. Echo revealed LVEF >70%. No significant valvular abnormalities. 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 Given multiple comorbidities and limited functional capacity, recommend conservative measures. JUNO BHANDARI APRN May 10, 2018 16:50
[2018-05-10] MEDS ORDERED: HEPARIN for IV BOLUS 10,000 UNIT/10 ML VIAL. IV PRN (17:00)
[2018-05-10] MEDS ORDERED: HEPARIN for IV BOLUS 10,000 UNIT/10 ML VIAL. IV ONE (17:00)
[2018-05-10] MEDS: INSULIN LISPRO 300 UNITS/3 ML INSULN.PEN. SQ SCH (17:00)
[2018-05-10] MEDS ORDERED: ANTI-COAG MONITOR BY PHARMACY. MC PRN (17:00)
[2018-05-10] MEDS: NYSTATIN 100,000 UNITS/ML 5 ML ORAL.SUSP. SWSW SCH ×2 (17:00→21:00)
[2018-05-10] MEDS ORDERED: HEPARIN 25,000UTS/500ML PREMIX 500 ML IV PRN (17:00)
[2018-05-10] MEDS: METOPROLOL TART IMMED RELEASE 25 MG TABLET. PO SCH (18:39)
[2018-05-10 19:00] VITALS: BP 145/68
[2018-05-10] MEDS ORDERED: INSULIN GLARGINE 300 UNITS/3 ML INSULN.PEN. SQ SCH (21:00)
[2018-05-10] MEDS: DOCUSATE SODIUM 100 MG CAPSULE. PO SCH (21:00)
[2018-05-10] MEDS: ATORVASTATIN CALCIUM 10 MG TABLET. PO SCH (21:00)
[2018-05-10] MEDS: LACTOBACILLUS RHAMNOSUS GG 1 CAPSULE. PO SCH (21:00)
[2018-05-10] MEDS ORDERED: NON FORMULARY ITEM (Melatonin 3 MG) PO SCH (21:00)
[2018-05-10 22:34] VITALS: BP 178/83
[2018-05-10 23:10] VITALS: BP 162/84
[2018-05-11] VITALS (8 sets, daily range): BP systolic 78–213; BP diastolic 42–120
[2018-05-11] MEDS: AMINO AC 3%/ELECTROLYTE/GLYCER 1,000 ML IV SCH ×3 (01:01→20:29)
[2018-05-11] MEDS: METOPROLOL TART IMMED RELEASE 25 MG TABLET. PO SCH (02:41)
[2018-05-11] MEDS: LABETALOL 20 MG/4 ML DISP.SYRIN. IVP PRN ×2 (03:00→08:55)
[2018-05-11 07:01] LABS: HEMOGLOBIN 11.5 g/dL (12.0-15.5); RED BLOOD COUNT 4.12 x10^6/uL (3.50-5.40); RED CELL DISTRIBUTION WIDTH 15.9 % (11.5-14.5); WHITE BLOOD COUNT 15.9 x10^3/uL (4.0-11.0)
[2018-05-11 07:24] LABS: CHOLESTEROL/HDL RATIO 2.3
[2018-05-11] MEDS: CALCIUM CARB/VIT D3 500/200 TABLET. PO SCH (08:00)
[2018-05-11] MEDS: CHLORHEXIDINE 0.12% 15 ML MOUTHWASH. MM SCH ×2 (08:00→21:00)
[2018-05-11] MEDS: DOCUSATE SODIUM 100 MG CAPSULE. PO SCH ×2 (08:00→21:00)
[2018-05-11] MEDS: LACTOBACILLUS RHAMNOSUS GG 1 CAPSULE. PO SCH ×2 (08:00→21:00)
[2018-05-11] MEDS ORDERED: ASPIRIN ENTERIC COATED 81 MG TABLET.DR. PO SCH (08:00)
[2018-05-11] MEDS: NYSTATIN 100,000 UNITS/ML 5 ML ORAL.SUSP. SWSW SCH ×4 (08:01→22:21)
[2018-05-11 08:10] LABS: CALCIUM 8.7 mg/dL (8.5-10.1); CREATININE 1.1 mg/dL (0.6-1.0); GFR 47.9; MAGNESIUM 2.5 mg/dL (1.8-2.4); POTASSIUM 3.7 mmol/L (3.5-5.1)
--- NOTE | 2018-05-11 08:57 | EKG ---
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
[2018-05-11] MEDS ORDERED: PHENYLEPH/MINERAL OIL/PETROLAT RECTAL OINTMENT 28GM TUBE. RC PRN (09:00)
[2018-05-11] MEDS: INSULIN GLARGINE 300 UNITS/3 ML INSULN.PEN. SQ SCH (09:00)
[2018-05-11] MEDS ORDERED: PHENYLEPH/MINERAL OIL/PETROLAT RECTAL OINTMENT 28GM TUBE. RC SCH (09:00)
[2018-05-11] MEDS: INSULIN LISPRO 300 UNITS/3 ML INSULN.PEN. SQ SCH ×3 (09:10→17:00)
--- NOTE | 2018-05-11 09:25 | PDOC ---
CARDIO Progress Notes Date and Time Date of Service 05/11/2018 Time of Evaluation 0920 Subjective Subjective: Other (nods no for any pain but otherwise nonverbal) Vitals Vitals Vital Signs Date Time Temp Pulse Resp B/P (MAP) Pulse Ox O2 Delivery O2 Flow Rate FiO2 05/11/18 08:55 80 05/11/18 07:00 98.1 20 194/90 (124) 96 Room Air 98.1 05/10/18 20:00 2.0 Weight Weight [ ] Input and Output Intake and Output Intake and Output 05/11/18 07:00 Intake Total 1610 ml Output Total 0 ml Balance 1610 ml Intake IV Total 1610 ml Output Urine Total 0 ml # Voids 2 # Bowel Movements 2 Laboratory Labs Laboratory Tests Test 05/10/18 09:30 05/10/18 09:39 05/10/18 14:25 05/10/18 15:20 White Blood Count 13.5 x10^3/uL (4.0-11.0) Red Blood Count 4.93 x10^6/uL (3.50-5.40) Hemoglobin 14.1 g/dL (12.0-15.5) Hematocrit 43.2 % (36.0-47.0) Mean Corpuscular Volume 88 fL (79-100) Mean Corpuscular Hemoglobin 29 pg (25-35) Mean Corpuscular Hemoglobin Concent 33 g/dL (31-37) Red Cell Distribution Width 15.9 % (11.5-14.5) Platelet Count 522 x10^3/uL (140-400) Neutrophils (%) (Auto) 87 % (31-73) Lymphocytes (%) (Auto) 10 % (24-48) Monocytes (%) (Auto) 2 % (0-9) Eosinophils (%) (Auto) 0 % (0-3) Basophils (%) (Auto) 0 % (0-3) Neutrophils # (Auto) 11.8 x10^3uL (1.8-7.7) Lymphocytes # (Auto) 1.4 x10^3/uL (1.0-4.8) Monocytes # (Auto) 0.3 x10^3/uL (0.0-1.1) Eosinophils # (Auto) 0.0 x10^3/uL (0.0-0.7) Basophils # (Auto) 0.1 x10^3/uL (0.0-0.2) Segmented Neutrophils % 88 % (35-66) Lymphocytes % 11 % (24-48) Monocytes % 1 % (0-10) Platelet Estimate Increased (ADEQUATE) Anisocytosis Slight Prothrombin Time 12.8 SEC (11.7-14.0) Prothromb Time International Ratio 1.0 (0.8-1.1) Sodium Level 151 mmol/L (136-145) Potassium Level 3.3 mmol/L (3.5-5.1) Chloride Level 107 mmol/L (98-107) Carbon Dioxide Level 30 mmol/L (21-32) Anion Gap 14 (6-14) Blood Urea Nitrogen 37 mg/dL (7-20) Creatinine 1.7 mg/dL (0.6-1.0) Estimated GFR (Cockcroft-Gault) 29.0 BUN/Creatinine Ratio 22 (6-20) Glucose Level 377 mg/dL (70-99) Lactic Acid Level 3.3 mmol/L (0.4-2.0) 1.2 mmol/L (0.4-2.0) Calcium Level 9.8 mg/dL (8.5-10.1) Magnesium Level 2.5 mg/dL (1.8-2.4) Total Bilirubin 0.5 mg/dL (0.2-1.0) Aspartate Amino Transf (AST/SGOT) 24 U/L (15-37) Alanine Aminotransferase (ALT/SGPT) 16 U/L (14-59) Alkaline Phosphatase 94 U/L (46-116) Troponin I Quantitative 0.524 ng/mL (0.000-0.055) 2.570 ng/mL (0.000-0.055) IK-Csi-S-Type Natriuretic Peptide 3705 pg/mL (0-449) Total Protein 9.1 g/dL (6.4-8.2) Albumin 3.7 g/dL (3.4-5.0) Albumin/Globulin Ratio 0.7 (1.0-1.7) Acetone Level Neg (NEG) Bedside Venous pH 7.37 (7.32-7.42) Bedside Venous pCO2 51 mmHg (41-51) Bedside Venous pO2 27 mmHg (20-40) Venous Blood HCO3 30 mmol/L (24-28) POC Venous O2 Saturation (Óscar) 48 % Bedside FiO2 27 Glucose (Fingerstick) 76 mg/dL (70-99) Test 05/10/18 16:56 05/10/18 17:25 05/10/18 20:32 05/11/18 00:30 Glucose (Fingerstick) 121 mg/dL (70-99) 205 mg/dL (70-99) Troponin I Quantitative 2.325 ng/mL (0.000-0.055) Heparin Anti-Xa Act, Unfractionated 0.49 IU/mL (0.30-0.70) Test 05/11/18 06:45 05/11/18 08:10 White Blood Count 15.9 x10^3/uL (4.0-11.0) Red Blood Count 4.12 x10^6/uL (3.50-5.40) Hemoglobin 11.5 g/dL (12.0-15.5) Hematocrit 36.0 % (36.0-47.0) Mean Corpuscular Volume 87 fL (79-100) Mean Corpuscular Hemoglobin 28 pg (25-35) Mean Corpuscular Hemoglobin Concent 32 g/dL (31-37) Red Cell Distribution Width 15.9 % (11.5-14.5) Platelet Count 405 x10^3/uL (140-400) Heparin Anti-Xa Act, Unfractionated 0.25 IU/mL (0.30-0.70) Sodium Level 147 mmol/L (136-145) Potassium Level 3.7 mmol/L (3.5-5.1) Chloride Level 110 mmol/L (98-107) Carbon Dioxide Level 27 mmol/L (21-32) Anion Gap 10 (6-14) Blood Urea Nitrogen 40 mg/dL (7-20) Creatinine 1.1 mg/dL (0.6-1.0) Estimated GFR (Cockcroft-Gault) 47.9 Glucose Level 338 mg/dL (70-99) Calcium Level 8.7 mg/dL (8.5-10.1) Magnesium Level 2.5 mg/dL (1.8-2.4) Triglycerides Level 294 mg/dL (0-150) Cholesterol Level 123 mg/dL (0-200) LDL Cholesterol, Calculated 11 mg/dL (0-100) VLDL Cholesterol, Calculated 59 mg/dL (0-40) Non-HDL Cholesterol Calculated 70 mg/dL (0-129) HDL Cholesterol 53 mg/dL (40-60) Cholesterol/HDL Ratio 2.3 Thyroid Stimulating Hormone (TSH) 0.467 uIU/mL (0.358-3.74) Glucose (Fingerstick) 330 mg/dL (70-99) Physical Exam HEENT: Neck Supple W Full Motion Chest: Symmetric LUNGS: Other (diminished) Heart: S1S2, RRR (SR) Abdomen: Soft N/T Extremities: No Calf Tenderness Neurology: alert, non-verbal Assessment Assessment 1. NSTEMI: no discomfort, SOA. Trop peaked at 2.5 and EKG shows no acute changes. Suspect type 2, demand mediated with uncontrolled HTN, MANDEEP and initial metabolic changes. 2. Malignant hypertension: EF >70% with normal LV function. 3. Hypertensive/metabolic encephalopathy 4. Syncope; LOC at breakfast. etiology unclear, no arrhythmias overnight. Seizure? 5. MANDEEP on CKD; dehydration. CR better after IV hydration 6. Hypernatremia/Hypokalemia; resolved 7. Leukocytosis, lactic acidosis: UTI? 8. DM,II 9. H/o CVA; non-verbal Recommendations 1. IVF ongoing. ASA,.Change to coreg. Will place on metoprolol IV for now with pt at risk for aspiration and currently NPO and pocketing her pills, unable to follow commands. . 2. BP was high this am possibly due to checking while pt was restless. Discussed with RN and will obtain manual BP. 3. Lipids well controlled, LDL 11. May need to decrease lipitor. 4. Will DC heparin this afternoon. No family around to note goals of care. At this time will maintain conservative measures. She is CP free and no SOA. Doubt pt will be able to comply with any outpt stress testing given her mentation and being nonverbal. VANDANA MENA APRN May 11, 2018 09:25
--- NOTE | 2018-05-11 09:32 | PDOC2 ---
NEUROLOGY CONSULT Date of Admission Date of Admission DATE: 05/11/18 TIME: 09:24 Reason for Consult Reason for Consult: Altered mental status Referring Physician Referring Physician: Dr. Haddad Source Source: Chart review History of Present Illness History of Present Illness The patient is a 77-year-old right-handed female with history of stroke involving right hemiparesis and aphasia. At the senior living she is bed bound. She does get up for breakfast and became unresponsive at breakfast yesterday. She had hyperglycemia, hyponatremia, hypotension, possible urinary tract infection. Last night, the patient had a prolonged episode of unable to be aroused. There was no seizure activity. She does have an elevated troponin level and cardiology started a heparin drip. There is no listed history of seizure. Patient is unable to provide any further information. Past Medical History Cardiovascular: HTN, Hyperlipidemia CENTRAL NERVOUS SYSTEM: CVA, Dementia GI: GERD, Other (dysphagia) Endocrine: Diabetes, Osteoporosis Past Surgical History Past Surgical History: No pertinent history Family History Family History: No pertinent hx Social History Social History Unobtainable Current Medications Current Medications Current Medications Sodium Chloride 1,000 ml @ 100 mls/hr Q10H IV Last administered on 05/10/18at 10:17; Start 05/10/18 at 09:45; Stop 05/10/18 at 12:49; Status DC Sodium Chloride 1,000 ml @ 1,560 mls/hr Q39M IV Last administered on at 11:15; Start 05/10/18 at 10:22; Stop 05/10/18 at 11:22; Status DC Ceftriaxone Sodium 50 ml @ 100 mls/hr 1X ONCE IV Last administered on at 11:15; Start 05/10/18 at 10:30; Stop 05/10/18 at 10:59; Status DC Aspirin (Children'S Aspirin) 324 mg 1X ONCE PO ; Start 05/10/18 at 10:30; Stop 05/10/18 at 10:31; Status DC Aspirin (Aspirin) 300 mg 1X ONCE ID ; Start 05/10/18 at 11:30; Stop 05/10/18 at 11:33; Status DC Acetaminophen (Tylenol) 500 mg PRN Q6HRS PRN PO MILD PAIN / TEMP; Start at 12:45; Status Cancel Ondansetron HCl (Zofran) 4 mg PRN Q6HRS PRN IV NAUSEA/VOMITING; Start at 12:45 Ondansetron HCl (Zofran Odt) 4 mg PRN Q6HRS PRN PO NAUSEA/VOMITING; Start at 12:45 Labetalol HCl (Normodyne Iv Push) 20 mg PRN Q2HR PRN IVP HYPERTENSION, SEE COMMENTS Last administered on 05/11/18at 08:55; Start 05/10/18 at 12:45 Insulin Human Lispro (HumaLOG) 0-9 UNITS TIDWMEALS SQ Last administered on at 09:10; Start 05/10/18 at 17:00 Dextrose (Dextrose 50%-Water Syringe) 12.5 gm PRN Q15MIN PRN IV SEE COMMENTS; Start 05/10/18 at 12:45 Insulin Human Lispro (HumaLOG) 10 units TIDAC SQ ; Start 05/10/18 at 16:30; Stop 05/10/18 at 18:14; Status DC Insulin Human Lispro (HumaLOG) 10 units 1X ONCE SQ ; Start 05/10/18 at 13:00; Stop 05/10/18 at 13:01; Status DC Insulin Glargine (Lantus) 20 units QHS SQ ; Start 05/10/18 at 21:00; Stop at 21:00; Status DC Labetalol HCl (Normodyne Iv Push) 20 mg 1X ONCE IVP ; Start 05/10/18 at 13:00 ; Stop 05/10/18 at 13:01; Status DC Ceftriaxone Sodium (Rocephin) 1 gm Q24H IVP ; Start 05/11/18 at 11:00 Amino Acids/ Glycerin/ Electrolytes 1,000 ml @ 100 mls/hr Q10H IV Last administered on 05/11/18at 08:55; Start 05/10/18 at 13:30 Lactobacillus Rhamnosus (Culturelle) 1 cap BID PO ; Start 05/10/18 at 21:00 Potassium Chloride (Klor-Con) 40 meq 1X ONCE PO Last administered on at 15:16; Start 05/10/18 at 14:30; Stop 05/10/18 at 14:31; Status DC Acetaminophen (Tylenol) 650 mg PRN Q4HRS PRN PO MILD PAIN; Start 05/10/18 at 14:15 Atorvastatin Calcium (Lipitor) 10 mg HS PO ; Start 05/10/18 at 21:00 Bisacodyl (Dulcolax Supp) 10 mg PRN DAILY PRN RC CONSTIPATION; Start 05/10/18 at 14:15 Chlorhexidine Gluconate (Peridex) 15 ml BID MM ; Start 05/10/18 at 15:00 Docusate Sodium (Colace) 100 mg BID PO ; Start 05/10/18 at 21:00 Magnesium Hydroxide (Milk Of Magnesia) 400 mg PRN TID PRN PO CONSTIPATION; Start 05/10/18 at 14:15 Phenyleph/Shark Oil/Min Oil/Petrol (Preparation H) 1 rachael DAILY RC ; Start 05/11 at 09:00; Stop 05/11/18 at 09:00; Status DC Calcium/Vitamin D (Oscal D 500mg/ 200uts) 1 tab DAILY PO ; Start 05/11/18 at 09 :00 Non-Formulary Medication (Melatonin ) 3 mg HS PO ; Start 05/10/18 at 21:00; Status UNV Nystatin (Nystatin Oral Susp) 5 ml [id number] ; Start 05/10/18 at 17:00 Aspirin (Daxa Aspirin) 325 mg 1X ONCE PO Last administered on 05/10/18at 15: 30; Start 05/10/18 at 15:30; Stop 05/10/18 at 15:31; Status DC Metoprolol Tartrate (Lopressor) 25 mg BID PO Last administered on 05/11/18at 02 :41; Start 05/10/18 at 17:30 Aspirin (Ecotrin) 81 mg [id number] PO ; Start 05/11/18 at 08:00 Heparin Sodium (Porcine) (Heparin Sodium) 2,700 unit 1X ONCE IV Last administered on 05/10/18at 18:34; Start 05/10/18 at 17:00; Stop 05/10/18 at 17 :01; Status DC Heparin Sodium/ Dextrose 500 ml @ 0 mls/hr CONT PRN IV SEE I/O RECORD Last administered on 05/10/18at 18:36; Start 05/10/18 at 17:00 Heparin Sodium (Porcine) (Heparin Sodium) 1,100 unit PRN Q6HRS PRN IV FOR UFH LEVEL LESS THAN 0.2; Start 05/10/18 at 17:00 Info (Anti-Coagulation Monitoring By Pharmacy) 1 each PRN DAILY PRN MC SEE COMMENTS; Start 05/10/18 at 17:00 Insulin Glargine (Lantus) 16 units DAILY SQ ; Start 05/11/18 at 09:00 Phenyleph/Shark Oil/Min Oil/Petrol (Preparation H) 1 rachael DAILY PRN RC hemorrhoid; Start 05/11/18 at 09:00 Active Scripts Active Reported Gnp Hemorrhoidal Ointment (Phenyleph/Mineral Oil/Petrolat) 57 Gm Oint.appl 57 Gm RC DAILY Calcium 500 + Vit D 400 Tablet (Calcium Carbonate/Vitamin D3) 1 Each Tablet 1 Each PO DAILY Nystatin 100,000 Unit/1 Ml Oral.susp 5 Ml PO QID Novolog Flexpen (Insulin Aspart) 100 Unit/1 Ml Insuln.pen 0-10 Unit SQ QIDACHS Milk Of Magnesia (Magnesium Hydroxide) 400 Mg/5 Ml Oral.susp 400 Mg PO TID PRN Melatonin 3 Mg Tablet 3 Mg PO HS Lipitor (Atorvastatin Calcium) 10 Mg Tablet 10 Mg PO HS Lantus Solostar (Insulin Glargine,Hum.rec.anlog) 100 Unit/1 Ml Insuln.pen 16 Unit SQ DAILY Docusate Sodium 100 Mg Capsule 100 Mg PO BID Peridex (Chlorhexidine Gluconate) 15 Ml Mouthwash 15 Ml MM BID Bisacodyl 10 Mg Supp.rect 10 Mg RC PRN DAILY PRN Acetaminophen 500 Mg Tablet 650 Mg PO Q4HRS PRN Allergies Allergies: Coded Allergies: doxycycline (Verified Allergy, Unknown, 11/04/16) ROS Review of System Unobtainable Physical Exam Physical Examination General: Well-developed, well-nourished, white female, in no acute distress HEENT: Normocephalic andatraumatic.Temporal arteriespulsatile and nontender. Neck: Supple without bruit, no meningismus Musculoskeletal: Stability:see neurologic. Gait exam:see neurologic. Tone:see neurologic. Strength:see neurologic. Neurological: Mental Status:orientation, memory, attention span/concentration, language, fund of knowledge: She is nonverbal, does respond to a few commands. Cranial Nerves:Pupils equal and reactive to light, extraocular movements areintact, visual headley are full to confrontation. Facial sensation is normal. There is no facial asymmetry. Vestibulo-ocular reflex is intact. All other cranial related problems are negative except as mentioned before.Reflexes:2+ and symmetric with flexor plantar responses. Motor:3/5 right hemiparesis with some increased tone. Coordination:Not cooperative. Gait:Not tested, mainly bedbound at baseline I am told. Sensory:She responds to pinprick in all 4 extremities Vitals VITALS Vital Signs Date Time Temp Pulse Resp B/P (MAP) Pulse Ox O2 Delivery O2 Flow Rate FiO2 05/11/18 08:55 80 05/11/18 07:00 98.1 20 194/90 (124) 96 Room Air 98.1 05/10/18 20:00 2.0 Labs Labs Laboratory Tests Test 05/10/18 09:21 05/10/18 09:30 05/10/18 09:39 05/10/18 14:25 Urine Collection Type U cath Urine Color Yellow Urine Clarity Clear Urine pH 7.0 Urine Specific [place] 1.015 Urine Protein 30 mg/dL (NEG-TRACE) Urine Glucose (UA) >=1000 mg/dL (NEG) Urine Ketones (Stick) Negative mg/dL (NEG) Urine Blood Small (NEG) Urine Nitrite Negative (NEG) Urine Bilirubin Negative (NEG) Urine Urobilinogen Dipstick 0.2 mg/dL (0.2 mg/dL) Urine Leukocyte Esterase Moderate (NEG) Urine RBC 3-5 /HPF (0-2) Urine WBC >40 /HPF (0-4) Urine Bacteria Moderate /HPF (0-FEW) White Blood Count 13.5 x10^3/uL (4.0-11.0) Red Blood Count 4.93 x10^6/uL (3.50-5.40) Hemoglobin 14.1 g/dL (12.0-15.5) Hematocrit 43.2 % (36.0-47.0) Mean Corpuscular Volume 88 fL (79-100) Mean Corpuscular Hemoglobin 29 pg (25-35) Mean Corpuscular Hemoglobin Concent 33 g/dL (31-37) Red Cell Distribution Width 15.9 % (11.5-14.5) Platelet Count 522 x10^3/uL (140-400) Neutrophils (%) (Auto) 87 % (31-73) Lymphocytes (%) (Auto) 10 % (24-48) Monocytes (%) (Auto) 2 % (0-9) Eosinophils (%) (Auto) 0 % (0-3) Basophils (%) (Auto) 0 % (0-3) Neutrophils # (Auto) 11.8 x10^3uL (1.8-7.7) Lymphocytes # (Auto) 1.4 x10^3/uL (1.0-4.8) Monocytes # (Auto) 0.3 x10^3/uL (0.0-1.1) Eosinophils # (Auto) 0.0 x10^3/uL (0.0-0.7) Basophils # (Auto) 0.1 x10^3/uL (0.0-0.2) Segmented Neutrophils % 88 % (35-66) Lymphocytes % 11 % (24-48) Monocytes % 1 % (0-10) Platelet Estimate Increased (ADEQUATE) Anisocytosis Slight Prothrombin Time 12.8 SEC (11.7-14.0) Prothromb Time International Ratio 1.0 (0.8-1.1) Sodium Level 151 mmol/L (136-145) Potassium Level 3.3 mmol/L (3.5-5.1) Chloride Level 107 mmol/L (98-107) Carbon Dioxide Level 30 mmol/L (21-32) Anion Gap 14 (6-14) Blood Urea Nitrogen 37 mg/dL (7-20) Creatinine 1.7 mg/dL (0.6-1.0) Estimated GFR (Cockcroft-Gault) 29.0 BUN/Creatinine Ratio 22 (6-20) Glucose Level 377 mg/dL (70-99) Lactic Acid Level 3.3 mmol/L (0.4-2.0) 1.2 mmol/L (0.4-2.0) Calcium Level 9.8 mg/dL (8.5-10.1) Magnesium Level 2.5 mg/dL (1.8-2.4) Total Bilirubin 0.5 mg/dL (0.2-1.0) Aspartate Amino Transf (AST/SGOT) 24 U/L (15-37) Alanine Aminotransferase (ALT/SGPT) 16 U/L (14-59) Alkaline Phosphatase 94 U/L (46-116) Troponin I Quantitative 0.524 ng/mL (0.000-0.055) 2.570 ng/mL (0.000-0.055) TB-Ydi-F-Type Natriuretic Peptide 3705 pg/mL (0-449) Total Protein 9.1 g/dL (6.4-8.2) Albumin 3.7 g/dL (3.4-5.0) Albumin/Globulin Ratio 0.7 (1.0-1.7) Acetone Level Neg (NEG) Bedside Venous pH 7.37 (7.32-7.42) Bedside Venous pCO2 51 mmHg (41-51) Bedside Venous pO2 27 mmHg (20-40) Venous Blood HCO3 30 mmol/L (24-28) POC Venous O2 Saturation (Óscar) 48 % Bedside FiO2 27 Test 05/10/18 15:20 05/10/18 16:56 05/10/18 17:25 05/10/18 20:32 Glucose (Fingerstick) 76 mg/dL (70-99) 121 mg/dL (70-99) 205 mg/dL (70-99) Troponin I Quantitative 2.325 ng/mL (0.000-0.055) Test 05/11/18 00:30 05/11/18 06:45 05/11/18 08:10 Heparin Anti-Xa Act, Unfractionated 0.49 IU/mL (0.30-0.70) 0.25 IU/mL (0.30-0.70) White Blood Count 15.9 x10^3/uL (4.0-11.0) Red Blood Count 4.12 x10^6/uL (3.50-5.40) Hemoglobin 11.5 g/dL (12.0-15.5) Hematocrit 36.0 % (36.0-47.0) Mean Corpuscular Volume 87 fL (79-100) Mean Corpuscular Hemoglobin 28 pg (25-35) Mean Corpuscular Hemoglobin Concent 32 g/dL (31-37) Red Cell Distribution Width 15.9 % (11.5-14.5) Platelet Count 405 x10^3/uL (140-400) Sodium Level 147 mmol/L (136-145) Potassium Level 3.7 mmol/L (3.5-5.1) Chloride Level 110 mmol/L (98-107) Carbon Dioxide Level 27 mmol/L (21-32) Anion Gap 10 (6-14) Blood Urea Nitrogen 40 mg/dL (7-20) Creatinine 1.1 mg/dL (0.6-1.0) Estimated GFR (Cockcroft-Gault) 47.9 Glucose Level 338 mg/dL (70-99) Calcium Level 8.7 mg/dL (8.5-10.1) Magnesium Level 2.5 mg/dL (1.8-2.4) Triglycerides Level 294 mg/dL (0-150) Cholesterol Level 123 mg/dL (0-200) LDL Cholesterol, Calculated 11 mg/dL (0-100) VLDL Cholesterol, Calculated 59 mg/dL (0-40) Non-HDL Cholesterol Calculated 70 mg/dL (0-129) HDL Cholesterol 53 mg/dL (40-60) Cholesterol/HDL Ratio 2.3 Thyroid Stimulating Hormone (TSH) 0.467 uIU/mL (0.358-3.74) Glucose (Fingerstick) 330 mg/dL (70-99) Laboratory Tests Test 05/10/18 09:30 05/10/18 09:39 05/10/18 14:25 05/10/18 15:20 White Blood Count 13.5 x10^3/uL (4.0-11.0) Red Blood Count 4.93 x10^6/uL (3.50-5.40) Hemoglobin 14.1 g/dL (12.0-15.5) Hematocrit 43.2 % (36.0-47.0) Mean Corpuscular Volume 88 fL (79-100) Mean Corpuscular Hemoglobin 29 pg (25-35) Mean Corpuscular Hemoglobin Concent 33 g/dL (31-37) Red Cell Distribution Width 15.9 % (11.5-14.5) Platelet Count 522 x10^3/uL (140-400) Neutrophils (%) (Auto) 87 % (31-73) Lymphocytes (%) (Auto) 10 % (24-48) Monocytes (%) (Auto) 2 % (0-9) Eosinophils (%) (Auto) 0 % (0-3) Basophils (%) (Auto) 0 % (0-3) Neutrophils # (Auto) 11.8 x10^3uL (1.8-7.7) Lymphocytes # (Auto) 1.4 x10^3/uL (1.0-4.8) Monocytes # (Auto) 0.3 x10^3/uL (0.0-1.1) Eosinophils # (Auto) 0.0 x10^3/uL (0.0-0.7) Basophils # (Auto) 0.1 x10^3/uL (0.0-0.2) Segmented Neutrophils % 88 % (35-66) Lymphocytes % 11 % (24-48) Monocytes % 1 % (0-10) Platelet Estimate Increased (ADEQUATE) Anisocytosis Slight Prothrombin Time 12.8 SEC (11.7-14.0) Prothromb Time International Ratio 1.0 (0.8-1.1) Sodium Level 151 mmol/L (136-145) Potassium Level 3.3 mmol/L (3.5-5.1) Chloride Level 107 mmol/L (98-107) Carbon Dioxide Level 30 mmol/L (21-32) Anion Gap 14 (6-14) Blood Urea Nitrogen 37 mg/dL (7-20) Creatinine 1.7 mg/dL (0.6-1.0) Estimated GFR (Cockcroft-Gault) 29.0 BUN/Creatinine Ratio 22 (6-20) Glucose Level 377 mg/dL (70-99) Lactic Acid Level 3.3 mmol/L (0.4-2.0) 1.2 mmol/L (0.4-2.0) Calcium Level 9.8 mg/dL (8.5-10.1) Magnesium Level 2.5 mg/dL (1.8-2.4) Total Bilirubin 0.5 mg/dL (0.2-1.0) Aspartate Amino Transf (AST/SGOT) 24 U/L (15-37) Alanine Aminotransferase (ALT/SGPT) 16 U/L (14-59) Alkaline Phosphatase 94 U/L (46-116) Troponin I Quantitative 0.524 ng/mL (0.000-0.055) 2.570 ng/mL (0.000-0.055) WJ-Fpx-B-Type Natriuretic Peptide 3705 pg/mL (0-449) Total Protein 9.1 g/dL (6.4-8.2) Albumin 3.7 g/dL (3.4-5.0) Albumin/Globulin Ratio 0.7 (1.0-1.7) Acetone Level Neg (NEG) Bedside Venous pH 7.37 (7.32-7.42) Bedside Venous pCO2 51 mmHg (41-51) Bedside Venous pO2 27 mmHg (20-40) Venous Blood HCO3 30 mmol/L (24-28) POC Venous O2 Saturation (Óscar) 48 % Bedside FiO2 27 Glucose (Fingerstick) 76 mg/dL (70-99) Test 05/10/18 16:56 05/10/18 17:25 05/10/18 20:32 05/11/18 00:30 Glucose (Fingerstick) 121 mg/dL (70-99) 205 mg/dL (70-99) Troponin I Quantitative 2.325 ng/mL (0.000-0.055) Heparin Anti-Xa Act, Unfractionated 0.49 IU/mL (0.30-0.70) Test 05/11/18 06:45 05/11/18 08:10 White Blood Count 15.9 x10^3/uL (4.0-11.0) Red Blood Count 4.12 x10^6/uL (3.50-5.40) Hemoglobin 11.5 g/dL (12.0-15.5) Hematocrit 36.0 % (36.0-47.0) Mean Corpuscular Volume 87 fL (79-100) Mean Corpuscular Hemoglobin 28 pg (25-35) Mean Corpuscular Hemoglobin Concent 32 g/dL (31-37) Red Cell Distribution Width 15.9 % (11.5-14.5) Platelet Count 405 x10^3/uL (140-400) Heparin Anti-Xa Act, Unfractionated 0.25 IU/mL (0.30-0.70) Sodium Level 147 mmol/L (136-145) Potassium Level 3.7 mmol/L (3.5-5.1) Chloride Level 110 mmol/L (98-107) Carbon Dioxide Level 27 mmol/L (21-32) Anion Gap 10 (6-14) Blood Urea Nitrogen 40 mg/dL (7-20) Creatinine 1.1 mg/dL (0.6-1.0) Estimated GFR (Cockcroft-Gault) 47.9 Glucose Level 338 mg/dL (70-99) Calcium Level 8.7 mg/dL (8.5-10.1) Magnesium Level 2.5 mg/dL (1.8-2.4) Triglycerides Level 294 mg/dL (0-150) Cholesterol Level 123 mg/dL (0-200) LDL Cholesterol, Calculated 11 mg/dL (0-100) VLDL Cholesterol, Calculated 59 mg/dL (0-40) Non-HDL Cholesterol Calculated 70 mg/dL (0-129) HDL Cholesterol 53 mg/dL (40-60) Cholesterol/HDL Ratio 2.3 Thyroid Stimulating Hormone (TSH) 0.467 uIU/mL (0.358-3.74) Glucose (Fingerstick) 330 mg/dL (70-99) Images Images There is moderate diffuse cerebral volume loss, thought to be mildly greater than expected for patient age. Extensive bilateral nonspecific white matter low-attenuation seen, probably from chronic microvascular ischemic disease. There is volume loss involving the left subinsular region and left basal ganglia, compatible with old infarction. 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 No obvious acute ischemic infarction is identified. No acute intracranial hemorrhage or intracranial mass is appreciated. Bone windows demonstrate no acute calvarial abnormality. Bilateral maxillary sinuses demonstrate changes of chronic sinusitis. Impression: 1. No acute intracranial process. Please note that CT can be relatively insensitive to acute ischemic infarction for up to 24 hours after symptom onset. 2. Nonspecific white matter changes, probably from chronic microvascular ischemic disease. Assessment/Plan Assessment/Plan Impression: Metabolic encephalopathy in the setting of dementia and old stroke, no evidence of new stroke. Seizure is in the differential diagnosis, but unlikely. Recommendations: Electroencephalogram I see no need for MRI or stroke studies. Treatment of cardiac problems. Treatment of medical problems. Thank you for letting me help with the patient's care. SANDRINE CANCINO MD May 11, 2018 09:32
--- NOTE | 2018-05-11 11:04 | PDOC ---
PROGRESS NOTES Chief Complaint Chief Complaint Sepsis, UTI, NSTEMI, Renal insufficiency History of Present Illness History of Present Illness Pt was seen at bedside. she non responsive, opened her eyes briefly with verbal command, she is not currently medically sedated Pt current BP is improved sys 130's. She had high BP sys 201 and nursing staff was having difficulty with giving pt her meds, she was "pocketing" her bp meds, tried crushing PO meds first, then moved to IV labetolol per RN note NSTEMI- TRP trending downward currently at 0.524 compared to max 2.5. Pt on heparin gtt Pt is being followed by Cardiology, Neurology, Nephrology Vitals Vitals Vital Signs Date Time Temp Pulse Resp B/P (MAP) Pulse Ox O2 Delivery O2 Flow Rate FiO2 05/11/18 09:53 72 138/64 (88) 05/11/18 07:00 98.1 20 96 Room Air 98.1 05/10/18 20:00 2.0 Physical Exam General: No acute distress, Other (Somnolent, minimally responsive to verbal command.) Heart: Regular rate, Normal S1, Normal S2, Other (2/6 systolic murmur ) Abdomen: Soft Extremities: No clubbing, No edema, Normal pulses Skin: No breakdown, No significant lesion Labs LABS Laboratory Tests Test 05/10/18 14:25 05/10/18 15:20 05/10/18 16:56 05/10/18 17:25 Lactic Acid Level 1.2 mmol/L (0.4-2.0) Troponin I Quantitative 2.570 ng/mL (0.000-0.055) 2.325 ng/mL (0.000-0.055) Glucose (Fingerstick) 76 mg/dL (70-99) 121 mg/dL (70-99) Test 05/10/18 20:32 05/11/18 00:30 05/11/18 06:45 05/11/18 08:10 Glucose (Fingerstick) 205 mg/dL (70-99) 330 mg/dL (70-99) Heparin Anti-Xa Act, Unfractionated 0.49 IU/mL (0.30-0.70) 0.25 IU/mL (0.30-0.70) White Blood Count 15.9 x10^3/uL (4.0-11.0) Red Blood Count 4.12 x10^6/uL (3.50-5.40) Hemoglobin 11.5 g/dL (12.0-15.5) Hematocrit 36.0 % (36.0-47.0) Mean Corpuscular Volume 87 fL (79-100) Mean Corpuscular Hemoglobin 28 pg (25-35) Mean Corpuscular Hemoglobin Concent 32 g/dL (31-37) Red Cell Distribution Width 15.9 % (11.5-14.5) Platelet Count 405 x10^3/uL (140-400) Sodium Level 147 mmol/L (136-145) Potassium Level 3.7 mmol/L (3.5-5.1) Chloride Level 110 mmol/L (98-107) Carbon Dioxide Level 27 mmol/L (21-32) Anion Gap 10 (6-14) Blood Urea Nitrogen 40 mg/dL (7-20) Creatinine 1.1 mg/dL (0.6-1.0) Estimated GFR (Cockcroft-Gault) 47.9 Glucose Level 338 mg/dL (70-99) Calcium Level 8.7 mg/dL (8.5-10.1) Magnesium Level 2.5 mg/dL (1.8-2.4) Triglycerides Level 294 mg/dL (0-150) Cholesterol Level 123 mg/dL (0-200) LDL Cholesterol, Calculated 11 mg/dL (0-100) VLDL Cholesterol, Calculated 59 mg/dL (0-40) Non-HDL Cholesterol Calculated 70 mg/dL (0-129) HDL Cholesterol 53 mg/dL (40-60) Cholesterol/HDL Ratio 2.3 Thyroid Stimulating Hormone (TSH) 0.467 uIU/mL (0.358-3.74) Review of Systems Review of Systems Unable to obtain ROS due to somnolence/minimally responsive to verbal commands Assessment and Plan Assessmemt and Plan Assessment Myocardial infarction/NSTEMI TRP max 2.5 now 0.524 Renal failure Sepsis Leukocytosis 15.9 Syncope UTI (urinary tract infection) Hypokalemia resolved 3.7 Metabolic encephalopathy in the setting of dementia and old stroke, no evidence of new stroke. Seizure is in the differential diagnosis, but unlikely. Plan Electroencephalogram- per Neuro CBC BMP Trend Troponin Cardiac Monitoring Home meds PT/OT Appreciate Cardiology input Appreciate neurology input Appreciate Nephrology input Comment Review of Relevant I have reviewed the following items violet (where applicable) has been applied. Labs Laboratory Tests Test 05/10/18 09:21 05/10/18 09:30 05/10/18 09:39 05/10/18 14:25 Urine Collection Type U cath Urine Color Yellow Urine Clarity Clear Urine pH 7.0 Urine Specific [place] 1.015 Urine Protein 30 mg/dL (NEG-TRACE) Urine Glucose (UA) >=1000 mg/dL (NEG) Urine Ketones (Stick) Negative mg/dL (NEG) Urine Blood Small (NEG) Urine Nitrite Negative (NEG) Urine Bilirubin Negative (NEG) Urine Urobilinogen Dipstick 0.2 mg/dL (0.2 mg/dL) Urine Leukocyte Esterase Moderate (NEG) Urine RBC 3-5 /HPF (0-2) Urine WBC >40 /HPF (0-4) Urine Bacteria Moderate /HPF (0-FEW) White Blood Count 13.5 x10^3/uL (4.0-11.0) Red Blood Count 4.93 x10^6/uL (3.50-5.40) Hemoglobin 14.1 g/dL (12.0-15.5) Hematocrit 43.2 % (36.0-47.0) Mean Corpuscular Volume 88 fL (79-100) Mean Corpuscular Hemoglobin 29 pg (25-35) Mean Corpuscular Hemoglobin Concent 33 g/dL (31-37) Red Cell Distribution Width 15.9 % (11.5-14.5) Platelet Count 522 x10^3/uL (140-400) Neutrophils (%) (Auto) 87 % (31-73) Lymphocytes (%) (Auto) 10 % (24-48) Monocytes (%) (Auto) 2 % (0-9) Eosinophils (%) (Auto) 0 % (0-3) Basophils (%) (Auto) 0 % (0-3) Neutrophils # (Auto) 11.8 x10^3uL (1.8-7.7) Lymphocytes # (Auto) 1.4 x10^3/uL (1.0-4.8) Monocytes # (Auto) 0.3 x10^3/uL (0.0-1.1) Eosinophils # (Auto) 0.0 x10^3/uL (0.0-0.7) Basophils # (Auto) 0.1 x10^3/uL (0.0-0.2) Segmented Neutrophils % 88 % (35-66) Lymphocytes % 11 % (24-48) Monocytes % 1 % (0-10) Platelet Estimate Increased (ADEQUATE) Anisocytosis Slight Prothrombin Time 12.8 SEC (11.7-14.0) Prothromb Time International Ratio 1.0 (0.8-1.1) Sodium Level 151 mmol/L (136-145) Potassium Level 3.3 mmol/L (3.5-5.1) Chloride Level 107 mmol/L (98-107) Carbon Dioxide Level 30 mmol/L (21-32) Anion Gap 14 (6-14) Blood Urea Nitrogen 37 mg/dL (7-20) Creatinine 1.7 mg/dL (0.6-1.0) Estimated GFR (Cockcroft-Gault) 29.0 BUN/Creatinine Ratio 22 (6-20) Glucose Level 377 mg/dL (70-99) Lactic Acid Level 3.3 mmol/L (0.4-2.0) 1.2 mmol/L (0.4-2.0) Calcium Level 9.8 mg/dL (8.5-10.1) Magnesium Level 2.5 mg/dL (1.8-2.4) Total Bilirubin 0.5 mg/dL (0.2-1.0) Aspartate Amino Transf (AST/SGOT) 24 U/L (15-37) Alanine Aminotransferase (ALT/SGPT) 16 U/L (14-59) Alkaline Phosphatase 94 U/L (46-116) Troponin I Quantitative 0.524 ng/mL (0.000-0.055) 2.570 ng/mL (0.000-0.055) HH-Aoc-M-Type Natriuretic Peptide 3705 pg/mL (0-449) Total Protein 9.1 g/dL (6.4-8.2) Albumin 3.7 g/dL (3.4-5.0) Albumin/Globulin Ratio 0.7 (1.0-1.7) Acetone Level Neg (NEG) Bedside Venous pH 7.37 (7.32-7.42) Bedside Venous pCO2 51 mmHg (41-51) Bedside Venous pO2 27 mmHg (20-40) Venous Blood HCO3 30 mmol/L (24-28) POC Venous O2 Saturation (Óscar) 48 % Bedside FiO2 27 Test 05/10/18 15:20 05/10/18 16:56 05/10/18 17:25 05/10/18 20:32 Glucose (Fingerstick) 76 mg/dL (70-99) 121 mg/dL (70-99) 205 mg/dL (70-99) Troponin I Quantitative 2.325 ng/mL (0.000-0.055) Test 05/11/18 00:30 05/11/18 06:45 05/11/18 08:10 Heparin Anti-Xa Act, Unfractionated 0.49 IU/mL (0.30-0.70) 0.25 IU/mL (0.30-0.70) White Blood Count 15.9 x10^3/uL (4.0-11.0) Red Blood Count 4.12 x10^6/uL (3.50-5.40) Hemoglobin 11.5 g/dL (12.0-15.5) Hematocrit 36.0 % (36.0-47.0) Mean Corpuscular Volume 87 fL (79-100) Mean Corpuscular Hemoglobin 28 pg (25-35) Mean Corpuscular Hemoglobin Concent 32 g/dL (31-37) Red Cell Distribution Width 15.9 % (11.5-14.5) Platelet Count 405 x10^3/uL (140-400) Sodium Level 147 mmol/L (136-145) Potassium Level 3.7 mmol/L (3.5-5.1) Chloride Level 110 mmol/L (98-107) Carbon Dioxide Level 27 mmol/L (21-32) Anion Gap 10 (6-14) Blood Urea Nitrogen 40 mg/dL (7-20) Creatinine 1.1 mg/dL (0.6-1.0) Estimated GFR (Cockcroft-Gault) 47.9 Glucose Level 338 mg/dL (70-99) Calcium Level 8.7 mg/dL (8.5-10.1) Magnesium Level 2.5 mg/dL (1.8-2.4) Triglycerides Level 294 mg/dL (0-150) Cholesterol Level 123 mg/dL (0-200) LDL Cholesterol, Calculated 11 mg/dL (0-100) VLDL Cholesterol, Calculated 59 mg/dL (0-40) Non-HDL Cholesterol Calculated 70 mg/dL (0-129) HDL Cholesterol 53 mg/dL (40-60) Cholesterol/HDL Ratio 2.3 Thyroid Stimulating Hormone (TSH) 0.467 uIU/mL (0.358-3.74) Glucose (Fingerstick) 330 mg/dL (70-99) Laboratory Tests Test 05/10/18 14:25 05/10/18 15:20 05/10/18 16:56 05/10/18 17:25 Lactic Acid Level 1.2 mmol/L (0.4-2.0) Troponin I Quantitative 2.570 ng/mL (0.000-0.055) 2.325 ng/mL (0.000-0.055) Glucose (Fingerstick) 76 mg/dL (70-99) 121 mg/dL (70-99) Test 05/10/18 20:32 05/11/18 00:30 05/11/18 06:45 05/11/18 08:10 Glucose (Fingerstick) 205 mg/dL (70-99) 330 mg/dL (70-99) Heparin Anti-Xa Act, Unfractionated 0.49 IU/mL (0.30-0.70) 0.25 IU/mL (0.30-0.70) White Blood Count 15.9 x10^3/uL (4.0-11.0) Red Blood Count 4.12 x10^6/uL (3.50-5.40) Hemoglobin 11.5 g/dL (12.0-15.5) Hematocrit 36.0 % (36.0-47.0) Mean Corpuscular Volume 87 fL (79-100) Mean Corpuscular Hemoglobin 28 pg (25-35) Mean Corpuscular Hemoglobin Concent 32 g/dL (31-37) Red Cell Distribution Width 15.9 % (11.5-14.5) Platelet Count 405 x10^3/uL (140-400) Sodium Level 147 mmol/L (136-145) Potassium Level 3.7 mmol/L (3.5-5.1) Chloride Level 110 mmol/L (98-107) Carbon Dioxide Level 27 mmol/L (21-32) Anion Gap 10 (6-14) Blood Urea Nitrogen 40 mg/dL (7-20) Creatinine 1.1 mg/dL (0.6-1.0) Estimated GFR (Cockcroft-Gault) 47.9 Glucose Level 338 mg/dL (70-99) Calcium Level 8.7 mg/dL (8.5-10.1) Magnesium Level 2.5 mg/dL (1.8-2.4) Triglycerides Level 294 mg/dL (0-150) Cholesterol Level 123 mg/dL (0-200) LDL Cholesterol, Calculated 11 mg/dL (0-100) VLDL Cholesterol, Calculated 59 mg/dL (0-40) Non-HDL Cholesterol Calculated 70 mg/dL (0-129) HDL Cholesterol 53 mg/dL (40-60) Cholesterol/HDL Ratio 2.3 Thyroid Stimulating Hormone (TSH) 0.467 uIU/mL (0.358-3.74) Microbiology 05/10/18 Blood Culture - Preliminary, Resulted NO GROWTH AFTER 1 DAY Medications Current Medications Sodium Chloride 1,000 ml @ 100 mls/hr Q10H IV Last administered on 05/10/18at 10:17; Start 05/10/18 at 09:45; Stop 05/10/18 at 12:49; Status DC Sodium Chloride 1,000 ml @ 1,560 mls/hr Q39M IV Last administered on at 11:15; Start 05/10/18 at 10:22; Stop 05/10/18 at 11:22; Status DC Ceftriaxone Sodium 50 ml @ 100 mls/hr 1X ONCE IV Last administered on at 11:15; Start 05/10/18 at 10:30; Stop 05/10/18 at 10:59; Status DC Aspirin (Children'S Aspirin) 324 mg 1X ONCE PO ; Start 05/10/18 at 10:30; Stop 05/10/18 at 10:31; Status DC Aspirin (Aspirin) 300 mg 1X ONCE TX ; Start 05/10/18 at 11:30; Stop 05/10/18 at 11:33; Status DC Acetaminophen (Tylenol) 500 mg PRN Q6HRS PRN PO MILD PAIN / TEMP; Start at 12:45; Status Cancel Ondansetron HCl (Zofran) 4 mg PRN Q6HRS PRN IV NAUSEA/VOMITING; Start at 12:45 Ondansetron HCl (Zofran Odt) 4 mg PRN Q6HRS PRN PO NAUSEA/VOMITING; Start at 12:45 Labetalol HCl (Normodyne Iv Push) 20 mg PRN Q2HR PRN IVP HYPERTENSION, SEE COMMENTS Last administered on 05/11/18at 08:55; Start 05/10/18 at 12:45 Insulin Human Lispro (HumaLOG) 0-9 UNITS TIDWMEALS SQ Last administered on at 09:10; Start 05/10/18 at 17:00 Dextrose (Dextrose 50%-Water Syringe) 12.5 gm PRN Q15MIN PRN IV SEE COMMENTS; Start 05/10/18 at 12:45 Insulin Human Lispro (HumaLOG) 10 units TIDAC SQ ; Start 05/10/18 at 16:30; Stop 05/10/18 at 18:14; Status DC Insulin Human Lispro (HumaLOG) 10 units 1X ONCE SQ ; Start 05/10/18 at 13:00; Stop 05/10/18 at 13:01; Status DC Insulin Glargine (Lantus) 20 units QHS SQ ; Start 05/10/18 at 21:00; Stop at 21:00; Status DC Labetalol HCl (Normodyne Iv Push) 20 mg 1X ONCE IVP ; Start 05/10/18 at 13:00 ; Stop 05/10/18 at 13:01; Status DC Ceftriaxone Sodium (Rocephin) 1 gm Q24H IVP ; Start 05/11/18 at 11:00 Amino Acids/ Glycerin/ Electrolytes 1,000 ml @ 100 mls/hr Q10H IV Last administered on 05/11/18at 08:55; Start 05/10/18 at 13:30 Lactobacillus Rhamnosus (Culturelle) 1 cap BID PO ; Start 05/10/18 at 21:00 Potassium Chloride (Klor-Con) 40 meq 1X ONCE PO Last administered on at 15:16; Start 05/10/18 at 14:30; Stop 05/10/18 at 14:31; Status DC Acetaminophen (Tylenol) 650 mg PRN Q4HRS PRN PO MILD PAIN; Start 05/10/18 at 14:15 Atorvastatin Calcium (Lipitor) 10 mg HS PO ; Start 05/10/18 at 21:00 Bisacodyl (Dulcolax Supp) 10 mg PRN DAILY PRN RC CONSTIPATION; Start 05/10/18 at 14:15 Chlorhexidine Gluconate (Peridex) 15 ml BID MM ; Start 05/10/18 at 15:00 Docusate Sodium (Colace) 100 mg BID PO ; Start 05/10/18 at 21:00 Magnesium Hydroxide (Milk Of Magnesia) 400 mg PRN TID PRN PO CONSTIPATION; Start 05/10/18 at 14:15 Phenyleph/Shark Oil/Min Oil/Petrol (Preparation H) 1 rachael DAILY RC ; Start 05/11 at 09:00; Stop 05/11/18 at 09:00; Status DC Calcium/Vitamin D (Oscal D 500mg/ 200uts) 1 tab DAILY PO ; Start 05/11/18 at 09 :00 Non-Formulary Medication (Melatonin ) 3 mg HS PO ; Start 05/10/18 at 21:00; Status UNV Nystatin (Nystatin Oral Susp) 5 ml [id number] ; Start 05/10/18 at 17:00 Aspirin (Daxa Aspirin) 325 mg 1X ONCE PO Last administered on 05/10/18at 15: 30; Start 05/10/18 at 15:30; Stop 05/10/18 at 15:31; Status DC Metoprolol Tartrate (Lopressor) 25 mg BID PO Last administered on 05/11/18at 02 :41; Start 05/10/18 at 17:30 Aspirin (Ecotrin) 81 mg [id number] PO ; Start 05/11/18 at 08:00 Heparin Sodium (Porcine) (Heparin Sodium) 2,700 unit 1X ONCE IV Last administered on 05/10/18at 18:34; Start 05/10/18 at 17:00; Stop 05/10/18 at 17 :01; Status DC Heparin Sodium/ Dextrose 500 ml @ 0 mls/hr CONT PRN IV SEE I/O RECORD Last administered on 05/10/18at 18:36; Start 05/10/18 at 17:00 Heparin Sodium (Porcine) (Heparin Sodium) 1,100 unit PRN Q6HRS PRN IV FOR UFH LEVEL LESS THAN 0.2; Start 05/10/18 at 17:00 Info (Anti-Coagulation Monitoring By Pharmacy) 1 each PRN DAILY PRN MC SEE COMMENTS; Start 05/10/18 at 17:00 Insulin Glargine (Lantus) 16 units DAILY SQ ; Start 05/11/18 at 09:00 Phenyleph/Shark Oil/Min Oil/Petrol (Preparation H) 1 rachael DAILY PRN RC hemorrhoid; Start 05/11/18 at 09:00 Active Scripts Active Reported Gnp Hemorrhoidal Ointment (Phenyleph/Mineral Oil/Petrolat) 57 Gm Oint.appl 57 Gm RC DAILY Calcium 500 + Vit D 400 Tablet (Calcium Carbonate/Vitamin D3) 1 Each Tablet 1 Each PO DAILY Nystatin 100,000 Unit/1 Ml Oral.susp 5 Ml PO QID Novolog Flexpen (Insulin Aspart) 100 Unit/1 Ml Insuln.pen 0-10 Unit SQ QIDACHS Milk Of Magnesia (Magnesium Hydroxide) 400 Mg/5 Ml Oral.susp 400 Mg PO TID PRN Melatonin 3 Mg Tablet 3 Mg PO HS Lipitor (Atorvastatin Calcium) 10 Mg Tablet 10 Mg PO HS Lantus Solostar (Insulin Glargine,Hum.rec.anlog) 100 Unit/1 Ml Insuln.pen 16 Unit SQ DAILY Docusate Sodium 100 Mg Capsule 100 Mg PO BID Peridex (Chlorhexidine Gluconate) 15 Ml Mouthwash 15 Ml MM BID Bisacodyl 10 Mg Supp.rect 10 Mg RC PRN DAILY PRN Acetaminophen 500 Mg Tablet 650 Mg PO Q4HRS PRN Vitals/I & O Vital Sign - Last 24 Hours 05/10/18 05/10/18 05/10/18 05/10/18 11:00 12:30 12:47 13:00 Temp 98.3 98.3 Pulse 114 103 Resp 14 16 B/P (MAP) 223/94 (137) 122/80 (94) Pulse Ox 100 98 O2 Delivery Room Air Nasal Cannula O2 Flow Rate 2.0 05/10/18 05/10/18 05/10/18 05/10/18 15:00 18:39 19:00 20:00 Temp 96.7 97.8 96.7 97.8 Pulse 103 85 82 Resp 16 17 B/P (MAP) 152/72 (98) 145/68 (93) Pulse Ox 99 99 O2 Delivery Room Air Room Air Nasal Cannula O2 Flow Rate 2.0 05/10/18 05/10/18 05/11/18 05/11/18 22:34 23:10 02:41 02:50 Temp 97.8 97.5 97.8 97.5 Pulse 80 88 80 91 Resp 17 18 B/P (MAP) 178/83 (114) 162/84 (110) 201/117 213/120 (151) Pulse Ox 100 98 O2 Delivery Room Air Room Air 05/11/18 05/11/18 05/11/18 05/11/18 02:56 03:00 07:00 08:55 Temp 98.1 98.1 Pulse 67 86 74 80 Resp 20 B/P (MAP) 138/57 (84) 201/117 194/90 (124) Pulse Ox 96 O2 Delivery Room Air 05/11/18 09:53 Pulse 72 B/P (MAP) 138/64 (88) Intake and Output 05/10/18 05/10/18 05/11/18 15:00 23:00 07:00 Intake Total 1610 ml Output Total 0 ml 0 ml Balance 1610 ml 0 ml 0 ml HARLEY HENDERSON III DO May 11, 2018 11:04
[2018-05-11] MEDS: cefTRIAXone IV Push 1 GM VIAL. IVP SCH (12:30)
--- NOTE | 2018-05-11 13:38 | EEG ---
DATE OF SERVICE: 05/11/2018 EEG NUMBER: [id number] OBJECTIVE: The patient is a 77-year-old female with episodes of altered consciousness, rule out seizure. DESCRIPTION: This is a digital study. Electrodes are placed according to the international 10-20 system. Bipolar and referential montages are available. Activation procedures typically include hyperventilation and intermittent photic stimulation. INTERPRETATION: The waking background consists of 5-6 Hz, 50-100 microvolt activity, symmetrically distributed over parietooccipital regions and reactive to eye opening. Hyperventilation is not performed. Intermittent photic stimulation is noncontributory. Sleep is not achieved. IMPRESSION: This electroencephalogram with the patient awake only is abnormal because of a mild, diffuse disturbance of cerebral activity consistent with any of a variety of toxic or metabolic encephalopathy including later stages of dementia. There is no evidence of focal, paroxysmal, or epileptiform activity. All abnormal activity identified by the computer and by the instrument and electrical technician is reviewed, and none are truly abnormal other than the slowing already commented on. Thank you for letting us help with the patient's care. SANDRINE CANCINO MD DR: TRESSA/thom JOB#: [id number] / [id number] JIGAR Pugh MD, CHERRIE MD
[2018-05-11] MEDS: METOPROLOL TARTRATE 5 MG/5 ML VIAL. IVP SCH (17:00)
[2018-05-11] MEDS ORDERED: CARVEDILOL 6.25 MG TABLET. PO SCH (17:00)
[2018-05-11] MEDS: ATORVASTATIN CALCIUM 10 MG TABLET. PO SCH (21:00)
[2018-05-11] MEDS ORDERED: INSULIN LISPRO 300 UNITS/3 ML INSULN.PEN. SQ ONE (22:15)
[2018-05-12] VITALS (7 sets, daily range): BP systolic 122–188; BP diastolic 63–94
[2018-05-12] MEDS: METOPROLOL TARTRATE 5 MG/5 ML VIAL. IVP SCH ×4 (00:20→18:11)
[2018-05-12 04:09] LABS: BASO % 0 % (0-3); EOS % 0 % (0-3); HEMATOCRIT 31.8 % (36.0-47.0); HEMOGLOBIN 10.7 g/dL (12.0-15.5); LYMPH # 2.2 x10^3/uL (1.0-4.8); LYMPH % 21 % (24-48); MEAN CORPUSCULAR HEMOGLOBIN 29 pg (25-35); MEAN CORPUSCULAR HGB CONC 34 g/dL (31-37); MEAN CORPUSCULAR VOLUME 87 fL (79-100); MONO # 0.5 x10^3/uL (0.0-1.1); MONO % 5 % (0-9); NEUT # 7.8 x10^3uL (1.8-7.7); NEUT % 74 % (31-73); PLATELET COUNT 333 x10^3/uL (140-400); RED BLOOD COUNT 3.66 x10^6/uL (3.50-5.40); RED CELL DISTRIBUTION WIDTH 15.7 % (11.5-14.5); WHITE BLOOD COUNT 10.5 x10^3/uL (4.0-11.0)
[2018-05-12 04:23] LABS: CALCIUM 8.6 mg/dL (8.5-10.1); GFR 53.5
[2018-05-12] MEDS: AMINO AC 3%/ELECTROLYTE/GLYCER 1,000 ML IV SCH ×2 (05:26→16:05)
--- NOTE | 2018-05-12 08:56 | PDOC ---
PROGRESS NOTES Assessment Problems Medical Problems: (1) Myocardial infarction Status: Acute (2) Renal failure Status: Acute (3) Sepsis Status: Acute (4) Syncope Status: Acute (5) UTI (urinary tract infection) Status: Acute Metabolic encephalopathy in the setting of dementia and old stroke, no evidence of new stroke. EEG negative for seizure activity. Plan No additional neurological studies or treatment required. Okay for return to [facility] any time. Treat medical diseases Subjective None Objective Vital Signs Date Time Temp Pulse Resp B/P (MAP) Pulse Ox O2 Delivery O2 Flow Rate FiO2 05/12/18 07:05 98.4 68 16 171/75 (107) 96 Room Air 98.4 05/11/18 08:15 2.0 Intake and Output 05/12/18 07:00 # Voids 6 # Bowel Movements 3 PHYSICAL EXAM Alert. Nonverbal, does not follow commands PERRL. EOMI. CN: no focal findings. Muscle tone: normal on left, increased on right. Muscle strength: 3/5 right hemiparesis DTR: 2+ Plantar reflex: flexor Gait: not examined in bed. Sensory exam: no abnormal findings. No cerebellar signs elicited. Review of Relevant I have reviewed the following items violet (where applicable) has been applied. Labs Laboratory Tests Test 05/10/18 09:21 05/10/18 09:30 05/10/18 09:39 05/10/18 14:25 Urine Collection Type U cath Urine Color Yellow Urine Clarity Clear Urine pH 7.0 Urine Specific [place] 1.015 Urine Protein 30 mg/dL (NEG-TRACE) Urine Glucose (UA) >=1000 mg/dL (NEG) Urine Ketones (Stick) Negative mg/dL (NEG) Urine Blood Small (NEG) Urine Nitrite Negative (NEG) Urine Bilirubin Negative (NEG) Urine Urobilinogen Dipstick 0.2 mg/dL (0.2 mg/dL) Urine Leukocyte Esterase Moderate (NEG) Urine RBC 3-5 /HPF (0-2) Urine WBC >40 /HPF (0-4) Urine Bacteria Moderate /HPF (0-FEW) White Blood Count 13.5 x10^3/uL (4.0-11.0) Red Blood Count 4.93 x10^6/uL (3.50-5.40) Hemoglobin 14.1 g/dL (12.0-15.5) Hematocrit 43.2 % (36.0-47.0) Mean Corpuscular Volume 88 fL (79-100) Mean Corpuscular Hemoglobin 29 pg (25-35) Mean Corpuscular Hemoglobin Concent 33 g/dL (31-37) Red Cell Distribution Width 15.9 % (11.5-14.5) Platelet Count 522 x10^3/uL (140-400) Neutrophils (%) (Auto) 87 % (31-73) Lymphocytes (%) (Auto) 10 % (24-48) Monocytes (%) (Auto) 2 % (0-9) Eosinophils (%) (Auto) 0 % (0-3) Basophils (%) (Auto) 0 % (0-3) Neutrophils # (Auto) 11.8 x10^3uL (1.8-7.7) Lymphocytes # (Auto) 1.4 x10^3/uL (1.0-4.8) Monocytes # (Auto) 0.3 x10^3/uL (0.0-1.1) Eosinophils # (Auto) 0.0 x10^3/uL (0.0-0.7) Basophils # (Auto) 0.1 x10^3/uL (0.0-0.2) Segmented Neutrophils % 88 % (35-66) Lymphocytes % 11 % (24-48) Monocytes % 1 % (0-10) Platelet Estimate Increased (ADEQUATE) Anisocytosis Slight Prothrombin Time 12.8 SEC (11.7-14.0) Prothromb Time International Ratio 1.0 (0.8-1.1) Sodium Level 151 mmol/L (136-145) Potassium Level 3.3 mmol/L (3.5-5.1) Chloride Level 107 mmol/L (98-107) Carbon Dioxide Level 30 mmol/L (21-32) Anion Gap 14 (6-14) Blood Urea Nitrogen 37 mg/dL (7-20) Creatinine 1.7 mg/dL (0.6-1.0) Estimated GFR (Cockcroft-Gault) 29.0 BUN/Creatinine Ratio 22 (6-20) Glucose Level 377 mg/dL (70-99) Lactic Acid Level 3.3 mmol/L (0.4-2.0) 1.2 mmol/L (0.4-2.0) Calcium Level 9.8 mg/dL (8.5-10.1) Magnesium Level 2.5 mg/dL (1.8-2.4) Total Bilirubin 0.5 mg/dL (0.2-1.0) Aspartate Amino Transf (AST/SGOT) 24 U/L (15-37) Alanine Aminotransferase (ALT/SGPT) 16 U/L (14-59) Alkaline Phosphatase 94 U/L (46-116) Troponin I Quantitative 0.524 ng/mL (0.000-0.055) 2.570 ng/mL (0.000-0.055) NO-Wzp-J-Type Natriuretic Peptide 3705 pg/mL (0-449) Total Protein 9.1 g/dL (6.4-8.2) Albumin 3.7 g/dL (3.4-5.0) Albumin/Globulin Ratio 0.7 (1.0-1.7) Acetone Level Neg (NEG) Bedside Venous pH 7.37 (7.32-7.42) Bedside Venous pCO2 51 mmHg (41-51) Bedside Venous pO2 27 mmHg (20-40) Venous Blood HCO3 30 mmol/L (24-28) POC Venous O2 Saturation (Óscar) 48 % Bedside FiO2 27 Test 05/10/18 15:20 05/10/18 16:56 05/10/18 17:25 05/10/18 20:32 Glucose (Fingerstick) 76 mg/dL (70-99) 121 mg/dL (70-99) 205 mg/dL (70-99) Troponin I Quantitative 2.325 ng/mL (0.000-0.055) Test 05/11/18 00:30 05/11/18 00:35 05/11/18 06:45 05/11/18 08:10 Heparin Anti-Xa Act, Unfractionated 0.49 IU/mL (0.30-0.70) 0.25 IU/mL (0.30-0.70) Nasal Screen MRSA (PCR) Positive (Negative) White Blood Count 15.9 x10^3/uL (4.0-11.0) Red Blood Count 4.12 x10^6/uL (3.50-5.40) Hemoglobin 11.5 g/dL (12.0-15.5) Hematocrit 36.0 % (36.0-47.0) Mean Corpuscular Volume 87 fL (79-100) Mean Corpuscular Hemoglobin 28 pg (25-35) Mean Corpuscular Hemoglobin Concent 32 g/dL (31-37) Red Cell Distribution Width 15.9 % (11.5-14.5) Platelet Count 405 x10^3/uL (140-400) Sodium Level 147 mmol/L (136-145) Potassium Level 3.7 mmol/L (3.5-5.1) Chloride Level 110 mmol/L (98-107) Carbon Dioxide Level 27 mmol/L (21-32) Anion Gap 10 (6-14) Blood Urea Nitrogen 40 mg/dL (7-20) Creatinine 1.1 mg/dL (0.6-1.0) Estimated GFR (Cockcroft-Gault) 47.9 Glucose Level 338 mg/dL (70-99) Calcium Level 8.7 mg/dL (8.5-10.1) Magnesium Level 2.5 mg/dL (1.8-2.4) Troponin I Quantitative 0.543 ng/mL (0.000-0.055) Triglycerides Level 294 mg/dL (0-150) Cholesterol Level 123 mg/dL (0-200) LDL Cholesterol, Calculated 11 mg/dL (0-100) VLDL Cholesterol, Calculated 59 mg/dL (0-40) Non-HDL Cholesterol Calculated 70 mg/dL (0-129) HDL Cholesterol 53 mg/dL (40-60) Cholesterol/HDL Ratio 2.3 Thyroid Stimulating Hormone (TSH) 0.467 uIU/mL (0.358-3.74) Glucose (Fingerstick) 330 mg/dL (70-99) Test 05/11/18 12:19 05/11/18 14:10 05/11/18 17:02 05/11/18 21:00 Glucose (Fingerstick) 308 mg/dL (70-99) 122 mg/dL (70-99) Heparin Anti-Xa Act, Unfractionated 0.35 IU/mL (0.30-0.70) < 0.10 IU/mL (0.30-0.70) Test 05/11/18 22:01 05/12/18 03:30 05/12/18 07:20 Glucose (Fingerstick) 236 mg/dL (70-99) 298 mg/dL (70-99) White Blood Count 10.5 x10^3/uL (4.0-11.0) Red Blood Count 3.66 x10^6/uL (3.50-5.40) Hemoglobin 10.7 g/dL (12.0-15.5) Hematocrit 31.8 % (36.0-47.0) Mean Corpuscular Volume 87 fL (79-100) Mean Corpuscular Hemoglobin 29 pg (25-35) Mean Corpuscular Hemoglobin Concent 34 g/dL (31-37) Red Cell Distribution Width 15.7 % (11.5-14.5) Platelet Count 333 x10^3/uL (140-400) Neutrophils (%) (Auto) 74 % (31-73) Lymphocytes (%) (Auto) 21 % (24-48) Monocytes (%) (Auto) 5 % (0-9) Eosinophils (%) (Auto) 0 % (0-3) Basophils (%) (Auto) 0 % (0-3) Neutrophils # (Auto) 7.8 x10^3uL (1.8-7.7) Lymphocytes # (Auto) 2.2 x10^3/uL (1.0-4.8) Monocytes # (Auto) 0.5 x10^3/uL (0.0-1.1) Eosinophils # (Auto) 0.0 x10^3/uL (0.0-0.7) Basophils # (Auto) 0.0 x10^3/uL (0.0-0.2) Sodium Level 145 mmol/L (136-145) Potassium Level 4.0 mmol/L (3.5-5.1) Chloride Level 109 mmol/L (98-107) Carbon Dioxide Level 28 mmol/L (21-32) Anion Gap 8 (6-14) Blood Urea Nitrogen 42 mg/dL (7-20) Creatinine 1.0 mg/dL (0.6-1.0) Estimated GFR (Cockcroft-Gault) 53.5 Glucose Level 287 mg/dL (70-99) Calcium Level 8.6 mg/dL (8.5-10.1) Laboratory Tests Test 05/11/18 12:19 05/11/18 14:10 05/11/18 17:02 05/11/18 21:00 Glucose (Fingerstick) 308 mg/dL (70-99) 122 mg/dL (70-99) Heparin Anti-Xa Act, Unfractionated 0.35 IU/mL (0.30-0.70) < 0.10 IU/mL (0.30-0.70) Test 05/11/18 22:01 05/12/18 03:30 05/12/18 07:20 Glucose (Fingerstick) 236 mg/dL (70-99) 298 mg/dL (70-99) White Blood Count 10.5 x10^3/uL (4.0-11.0) Red Blood Count 3.66 x10^6/uL (3.50-5.40) Hemoglobin 10.7 g/dL (12.0-15.5) Hematocrit 31.8 % (36.0-47.0) Mean Corpuscular Volume 87 fL (79-100) Mean Corpuscular Hemoglobin 29 pg (25-35) Mean Corpuscular Hemoglobin Concent 34 g/dL (31-37) Red Cell Distribution Width 15.7 % (11.5-14.5) Platelet Count 333 x10^3/uL (140-400) Neutrophils (%) (Auto) 74 % (31-73) Lymphocytes (%) (Auto) 21 % (24-48) Monocytes (%) (Auto) 5 % (0-9) Eosinophils (%) (Auto) 0 % (0-3) Basophils (%) (Auto) 0 % (0-3) Neutrophils # (Auto) 7.8 x10^3uL (1.8-7.7) Lymphocytes # (Auto) 2.2 x10^3/uL (1.0-4.8) Monocytes # (Auto) 0.5 x10^3/uL (0.0-1.1) Eosinophils # (Auto) 0.0 x10^3/uL (0.0-0.7) Basophils # (Auto) 0.0 x10^3/uL (0.0-0.2) Sodium Level 145 mmol/L (136-145) Potassium Level 4.0 mmol/L (3.5-5.1) Chloride Level 109 mmol/L (98-107) Carbon Dioxide Level 28 mmol/L (21-32) Anion Gap 8 (6-14) Blood Urea Nitrogen 42 mg/dL (7-20) Creatinine 1.0 mg/dL (0.6-1.0) Estimated GFR (Cockcroft-Gault) 53.5 Glucose Level 287 mg/dL (70-99) Calcium Level 8.6 mg/dL (8.5-10.1) Microbiology 05/10/18 Blood Culture - Preliminary, Resulted NO GROWTH AFTER 1 DAY Medications Current Medications Sodium Chloride 1,000 ml @ 100 mls/hr Q10H IV Last administered on 05/10/18at 10:17; Start 05/10/18 at 09:45; Stop 05/10/18 at 12:49; Status DC Sodium Chloride 1,000 ml @ 1,560 mls/hr Q39M IV Last administered on at 11:15; Start 05/10/18 at 10:22; Stop 05/10/18 at 11:22; Status DC Ceftriaxone Sodium 50 ml @ 100 mls/hr 1X ONCE IV Last administered on at 11:15; Start 05/10/18 at 10:30; Stop 05/10/18 at 10:59; Status DC Aspirin (Children'S Aspirin) 324 mg 1X ONCE PO ; Start 05/10/18 at 10:30; Stop 05/10/18 at 10:31; Status DC Aspirin (Aspirin) 300 mg 1X ONCE NV ; Start 05/10/18 at 11:30; Stop 05/10/18 at 11:33; Status DC Acetaminophen (Tylenol) 500 mg PRN Q6HRS PRN PO MILD PAIN / TEMP; Start at 12:45; Status Cancel Ondansetron HCl (Zofran) 4 mg PRN Q6HRS PRN IV NAUSEA/VOMITING; Start at 12:45 Ondansetron HCl (Zofran Odt) 4 mg PRN Q6HRS PRN PO NAUSEA/VOMITING; Start at 12:45 Labetalol HCl (Normodyne Iv Push) 20 mg PRN Q2HR PRN IVP HYPERTENSION, SEE COMMENTS Last administered on 05/11/18at 08:55; Start 05/10/18 at 12:45 Insulin Human Lispro (HumaLOG) 0-9 UNITS TIDWMEALS SQ Last administered on at 12:33; Start 05/10/18 at 17:00 Dextrose (Dextrose 50%-Water Syringe) 12.5 gm PRN Q15MIN PRN IV SEE COMMENTS; Start 05/10/18 at 12:45 Insulin Human Lispro (HumaLOG) 10 units TIDAC SQ ; Start 05/10/18 at 16:30; Stop 05/10/18 at 18:14; Status DC Insulin Human Lispro (HumaLOG) 10 units 1X ONCE SQ ; Start 05/10/18 at 13:00; Stop 05/10/18 at 13:01; Status DC Insulin Glargine (Lantus) 20 units QHS SQ ; Start 05/10/18 at 21:00; Stop at 21:00; Status DC Labetalol HCl (Normodyne Iv Push) 20 mg 1X ONCE IVP ; Start 05/10/18 at 13:00 ; Stop 05/10/18 at 13:01; Status DC Ceftriaxone Sodium (Rocephin) 1 gm Q24H IVP Last administered on 05/11/18at 12: 30; Start 05/11/18 at 11:00 Amino Acids/ Glycerin/ Electrolytes 1,000 ml @ 100 mls/hr Q10H IV Last administered on 05/12/18at 05:26; Start 05/10/18 at 13:30 Lactobacillus Rhamnosus (Culturelle) 1 cap BID PO ; Start 05/10/18 at 21:00 Potassium Chloride (Klor-Con) 40 meq 1X ONCE PO Last administered on at 15:16; Start 05/10/18 at 14:30; Stop 05/10/18 at 14:31; Status DC Acetaminophen (Tylenol) 650 mg PRN Q4HRS PRN PO MILD PAIN; Start 05/10/18 at 14:15 Atorvastatin Calcium (Lipitor) 10 mg HS PO ; Start 05/10/18 at 21:00 Bisacodyl (Dulcolax Supp) 10 mg PRN DAILY PRN RC CONSTIPATION; Start 05/10/18 at 14:15 Chlorhexidine Gluconate (Peridex) 15 ml BID MM Last administered on 05/11/18at 21:00; Start 05/10/18 at 15:00 Docusate Sodium (Colace) 100 mg BID PO ; Start 05/10/18 at 21:00 Magnesium Hydroxide (Milk Of Magnesia) 400 mg PRN TID PRN PO CONSTIPATION; Start 05/10/18 at 14:15 Phenyleph/Shark Oil/Min Oil/Petrol (Preparation H) 1 rachael DAILY RC ; Start 05/11 at 09:00; Stop 05/11/18 at 09:00; Status DC Calcium/Vitamin D (Oscal D 500mg/ 200uts) 1 tab DAILY PO ; Start 05/11/18 at 09 :00 Non-Formulary Medication (Melatonin ) 3 mg HS PO ; Start 05/10/18 at 21:00; Status UNV Nystatin (Nystatin Oral Susp) 5 ml [id number] Last administered on at 22:21; Start 05/10/18 at 17:00 Aspirin (Daxa Aspirin) 325 mg 1X ONCE PO Last administered on 05/10/18at 15: 30; Start 05/10/18 at 15:30; Stop 05/10/18 at 15:31; Status DC Metoprolol Tartrate (Lopressor) 25 mg BID PO Last administered on 05/11/18at 02 :41; Start 05/10/18 at 17:30; Stop 05/11/18 at 14:25; Status DC Aspirin (Ecotrin) 81 mg DAILYWBKFT PO ; Start 05/11/18 at 08:00; Stop at 15:23; Status DC Heparin Sodium (Porcine) (Heparin Sodium) 2,700 unit 1X ONCE IV Last administered on 05/10/18at 18:34; Start 05/10/18 at 17:00; Stop 05/11/18 at 16 :33; Status DC Heparin Sodium/ Dextrose 500 ml @ 0 mls/hr CONT PRN IV SEE I/O RECORD Last administered on 05/10/18at 18:36; Start 05/10/18 at 17:00; Stop 05/11/18 at 16 :33; Status DC Heparin Sodium (Porcine) (Heparin Sodium) 1,100 unit PRN Q6HRS PRN IV FOR UFH LEVEL LESS THAN 0.2; Start 05/10/18 at 17:00; Stop 05/11/18 at 16:33; Status DC Info (Anti-Coagulation Monitoring By Pharmacy) 1 each PRN DAILY PRN MC SEE COMMENTS Last administered on 05/11/18at 11:14; Start 05/10/18 at 17:00 Insulin Glargine (Lantus) 16 units DAILY SQ ; Start 05/11/18 at 09:00 Phenyleph/Shark Oil/Min Oil/Petrol (Preparation H) 1 rachael DAILY PRN RC hemorrhoid; Start 05/11/18 at 09:00 Carvedilol (Coreg) 6.25 mg BIDWMEALS PO ; Start 05/11/18 at 17:00; Stop at 17:00; Status DC Metoprolol Tartrate (Lopressor Vial) 5 mg Q6HRS IVP Last administered on at 05:28; Start 05/11/18 at 16:00 Aspirin (Aspirin) 150 mg DAILY NV ; Start 05/12/18 at 09:00 Insulin Human Lispro (HumaLOG) 3 units 1X ONCE SQ Last administered on at 22:21; Start 05/11/18 at 22:15; Stop 05/11/18 at 22:16; Status DC Nitroglycerin (Nitro-Bid Oint) 1 inch Q6HRS TP ; Start 05/12/18 at 08:00 Active Scripts Active Reported Gnp Hemorrhoidal Ointment (Phenyleph/Mineral Oil/Petrolat) 57 Gm Oint.appl 57 Gm RC DAILY Calcium 500 + Vit D 400 Tablet (Calcium Carbonate/Vitamin D3) 1 Each Tablet 1 Each PO DAILY Nystatin 100,000 Unit/1 Ml Oral.susp 5 Ml PO QID Novolog Flexpen (Insulin Aspart) 100 Unit/1 Ml Insuln.pen 0-10 Unit SQ QIDACHS Milk Of Magnesia (Magnesium Hydroxide) 400 Mg/5 Ml Oral.susp 400 Mg PO TID PRN Melatonin 3 Mg Tablet 3 Mg PO HS Lipitor (Atorvastatin Calcium) 10 Mg Tablet 10 Mg PO HS Lantus Solostar (Insulin Glargine,Hum.rec.anlog) 100 Unit/1 Ml Insuln.pen 16 Unit SQ DAILY Docusate Sodium 100 Mg Capsule 100 Mg PO BID Peridex (Chlorhexidine Gluconate) 15 Ml Mouthwash 15 Ml MM BID Bisacodyl 10 Mg Supp.rect 10 Mg RC PRN DAILY PRN Acetaminophen 500 Mg Tablet 650 Mg PO Q4HRS PRN Vitals/I & O Vital Sign - Last 24 Hours 1105/11/18 05/11/18 05/11/18 08:55 09:53 11:00 14:51 Temp 98.1 98.0 98.1 98.0 Pulse 80 72 72 88 Resp 20 22 B/P (MAP) 138/64 (88) 165/89 (114) 171/70 (103) Pulse Ox 97 95 O2 Delivery Room Air Room Air 05/11/18 05/11/18 05/11/18 05/11/18 17:00 20:00 21:49 23:09 Temp 98.1 96.6 98.1 96.6 Pulse 68 66 77 Resp 18 18 B/P (MAP) 78/42 (54) 128/70 (89) Pulse Ox 98 97 O2 Delivery Room Air Room Air Room Air 05/12/18 05/12/18 05/12/18 05/12/18 00:20 00:20 03:15 05:28 Temp 98.4 98.4 Pulse 72 74 75 75 Resp 18 B/P (MAP) 128/70 188/94 (125) 179/73 (108) 179/73 Pulse Ox 99 O2 Delivery Room Air 05/12/18 07:05 Temp 98.4 98.4 Pulse 68 Resp 16 B/P (MAP) 171/75 (107) Pulse Ox 96 O2 Delivery Room Air SANDRINE CANCINO MD May 12, 2018 08:55
[2018-05-12] MEDS: CALCIUM CARB/VIT D3 500/200 TABLET. PO SCH (09:00)
[2018-05-12] MEDS: CHLORHEXIDINE 0.12% 15 ML MOUTHWASH. MM SCH ×2 (09:00→21:17)
[2018-05-12] MEDS: NYSTATIN 100,000 UNITS/ML 5 ML ORAL.SUSP. SWSW SCH ×4 (09:00→21:17)
[2018-05-12] MEDS: ASPIRIN 300 MG SUPP.RECT PR SCH (09:00)
[2018-05-12] MEDS: DOCUSATE SODIUM 100 MG CAPSULE. PO SCH ×2 (09:00→19:59)
[2018-05-12] MEDS: LACTOBACILLUS RHAMNOSUS GG 1 CAPSULE. PO SCH ×2 (09:00→19:59)
--- NOTE | 2018-05-12 10:27 | PDOC2 ---
PALLIATIVE CARE Palliative Care Note Palliative Care Consult requested by Dr. Jarrett to address goals of care. Medical Assessment per medical record; [place], Acute Renal Failure--improved; Sepsis--improved; Syncope, UTI Metabolic Encephalopathy, Hx. Dementia and CVA; EEG negative for seizures. Patient awakens to verbal stimuli. does not respond to questions. gestures with hand. Spoke with [facility]. Per staff patient was nonverbal, feeding self --pureed with thickened liquids--noted pocketing food few weeks prior to episode at [facility]. BS elevated 300+; thrush--responded to treatment. Attempted to reach [facility] Dell Rivera [phone] and [phone]. Message left to return call Code Status; DNR/DNI. Will arrange meeting to discuss goals of care. ZO DAVIS May 12, 2018 10:27
--- NOTE | 2018-05-12 11:32 | PDOC ---
PROGRESS NOTES Chief Complaint Chief Complaint Sepsis, UTI, NSTEMI, Renal insufficiency History of Present Illness History of Present Illness Pt was seen at bedside. today she was awake lying in bed but remained nonverbal. Pt had EEG yesterday showing abnormalities only when awake. metabolic or toxic encephalopathy vs dementia- per neuro Swallow evaluation completed- dysphagia/npo SW- return to [facility] when medically stable DW Pat from Palliative care- peg tube vs hospice. NSTEMI- TRP trending downward currently at 0.524 compared to max 2.5. Pt is being followed by Cardiology, Neurology, Nephrology, palliative care Vitals Vitals Vital Signs Date Time Temp Pulse Resp B/P (MAP) Pulse Ox O2 Delivery O2 Flow Rate FiO2 05/12/18 07:05 98.4 68 16 171/75 (107) 96 Room Air 98.4 05/11/18 08:15 2.0 Physical Exam Physical Exam Pt was seen awake but remained nonverbal, NAD, failure to thrive General: No acute distress, Other (Somnolent, minimally responsive to verbal command.) Heart: Regular rate, Normal S1, Normal S2, Other (2/6 systolic murmur ) Abdomen: Soft Extremities: No clubbing, No edema, Normal pulses Skin: No breakdown, No significant lesion Labs LABS Laboratory Tests Test 05/11/18 12:19 05/11/18 14:10 05/11/18 17:02 05/11/18 21:00 Glucose (Fingerstick) 308 mg/dL (70-99) 122 mg/dL (70-99) Heparin Anti-Xa Act, Unfractionated 0.35 IU/mL (0.30-0.70) < 0.10 IU/mL (0.30-0.70) Test 05/11/18 22:01 05/12/18 03:30 05/12/18 07:20 Glucose (Fingerstick) 236 mg/dL (70-99) 298 mg/dL (70-99) White Blood Count 10.5 x10^3/uL (4.0-11.0) Red Blood Count 3.66 x10^6/uL (3.50-5.40) Hemoglobin 10.7 g/dL (12.0-15.5) Hematocrit 31.8 % (36.0-47.0) Mean Corpuscular Volume 87 fL (79-100) Mean Corpuscular Hemoglobin 29 pg (25-35) Mean Corpuscular Hemoglobin Concent 34 g/dL (31-37) Red Cell Distribution Width 15.7 % (11.5-14.5) Platelet Count 333 x10^3/uL (140-400) Neutrophils (%) (Auto) 74 % (31-73) Lymphocytes (%) (Auto) 21 % (24-48) Monocytes (%) (Auto) 5 % (0-9) Eosinophils (%) (Auto) 0 % (0-3) Basophils (%) (Auto) 0 % (0-3) Neutrophils # (Auto) 7.8 x10^3uL (1.8-7.7) Lymphocytes # (Auto) 2.2 x10^3/uL (1.0-4.8) Monocytes # (Auto) 0.5 x10^3/uL (0.0-1.1) Eosinophils # (Auto) 0.0 x10^3/uL (0.0-0.7) Basophils # (Auto) 0.0 x10^3/uL (0.0-0.2) Sodium Level 145 mmol/L (136-145) Potassium Level 4.0 mmol/L (3.5-5.1) Chloride Level 109 mmol/L (98-107) Carbon Dioxide Level 28 mmol/L (21-32) Anion Gap 8 (6-14) Blood Urea Nitrogen 42 mg/dL (7-20) Creatinine 1.0 mg/dL (0.6-1.0) Estimated GFR (Cockcroft-Gault) 53.5 Glucose Level 287 mg/dL (70-99) Calcium Level 8.6 mg/dL (8.5-10.1) Review of Systems Review of Systems Unable to obtain ROS due to nonverbal Assessment and Plan Assessmemt and Plan Assessment NSTEMI- resolving TRP 0.54 max 2.5 Renal failure- resolving Cr 1.0 Sepsis with resolving leukocytosis 10.5 Syncope UTI (urinary tract infection) Metabolic encephalopathy vs toxic encephalopathy vs dementia? Dysphagia MRSA positive Probable adult failure to thrive Plan CBC BMP Cardiac monitoring PT/OT VTE prophylaxis home meds Appreciate neurology input Appreciate Cardiology input Appreciate Nephrology input Appreciate Palliative care input peg vs hospice Discharge disposition to [facility] when medically stable Comment Review of Relevant I have reviewed the following items violet (where applicable) has been applied. Labs Laboratory Tests Test 05/10/18 14:25 05/10/18 15:20 05/10/18 16:56 05/10/18 17:25 Lactic Acid Level 1.2 mmol/L (0.4-2.0) Troponin I Quantitative 2.570 ng/mL (0.000-0.055) 2.325 ng/mL (0.000-0.055) Glucose (Fingerstick) 76 mg/dL (70-99) 121 mg/dL (70-99) Test 05/10/18 20:32 05/11/18 00:30 05/11/18 00:35 05/11/18 06:45 Glucose (Fingerstick) 205 mg/dL (70-99) Heparin Anti-Xa Act, Unfractionated 0.49 IU/mL (0.30-0.70) 0.25 IU/mL (0.30-0.70) Nasal Screen MRSA (PCR) Positive (Negative) White Blood Count 15.9 x10^3/uL (4.0-11.0) Red Blood Count 4.12 x10^6/uL (3.50-5.40) Hemoglobin 11.5 g/dL (12.0-15.5) Hematocrit 36.0 % (36.0-47.0) Mean Corpuscular Volume 87 fL (79-100) Mean Corpuscular Hemoglobin 28 pg (25-35) Mean Corpuscular Hemoglobin Concent 32 g/dL (31-37) Red Cell Distribution Width 15.9 % (11.5-14.5) Platelet Count 405 x10^3/uL (140-400) Sodium Level 147 mmol/L (136-145) Potassium Level 3.7 mmol/L (3.5-5.1) Chloride Level 110 mmol/L (98-107) Carbon Dioxide Level 27 mmol/L (21-32) Anion Gap 10 (6-14) Blood Urea Nitrogen 40 mg/dL (7-20) Creatinine 1.1 mg/dL (0.6-1.0) Estimated GFR (Cockcroft-Gault) 47.9 Glucose Level 338 mg/dL (70-99) Calcium Level 8.7 mg/dL (8.5-10.1) Magnesium Level 2.5 mg/dL (1.8-2.4) Troponin I Quantitative 0.543 ng/mL (0.000-0.055) Triglycerides Level 294 mg/dL (0-150) Cholesterol Level 123 mg/dL (0-200) LDL Cholesterol, Calculated 11 mg/dL (0-100) VLDL Cholesterol, Calculated 59 mg/dL (0-40) Non-HDL Cholesterol Calculated 70 mg/dL (0-129) HDL Cholesterol 53 mg/dL (40-60) Cholesterol/HDL Ratio 2.3 Thyroid Stimulating Hormone (TSH) 0.467 uIU/mL (0.358-3.74) Test 05/11/18 08:10 05/11/18 12:19 05/11/18 14:10 05/11/18 17:02 Glucose (Fingerstick) 330 mg/dL (70-99) 308 mg/dL (70-99) 122 mg/dL (70-99) Heparin Anti-Xa Act, Unfractionated 0.35 IU/mL (0.30-0.70) Test 05/11/18 21:00 05/11/18 22:01 05/12/18 03:30 05/12/18 07:20 Heparin Anti-Xa Act, Unfractionated < 0.10 IU/mL (0.30-0.70) Glucose (Fingerstick) 236 mg/dL (70-99) 298 mg/dL (70-99) White Blood Count 10.5 x10^3/uL (4.0-11.0) Red Blood Count 3.66 x10^6/uL (3.50-5.40) Hemoglobin 10.7 g/dL (12.0-15.5) Hematocrit 31.8 % (36.0-47.0) Mean Corpuscular Volume 87 fL (79-100) Mean Corpuscular Hemoglobin 29 pg (25-35) Mean Corpuscular Hemoglobin Concent 34 g/dL (31-37) Red Cell Distribution Width 15.7 % (11.5-14.5) Platelet Count 333 x10^3/uL (140-400) Neutrophils (%) (Auto) 74 % (31-73) Lymphocytes (%) (Auto) 21 % (24-48) Monocytes (%) (Auto) 5 % (0-9) Eosinophils (%) (Auto) 0 % (0-3) Basophils (%) (Auto) 0 % (0-3) Neutrophils # (Auto) 7.8 x10^3uL (1.8-7.7) Lymphocytes # (Auto) 2.2 x10^3/uL (1.0-4.8) Monocytes # (Auto) 0.5 x10^3/uL (0.0-1.1) Eosinophils # (Auto) 0.0 x10^3/uL (0.0-0.7) Basophils # (Auto) 0.0 x10^3/uL (0.0-0.2) Sodium Level 145 mmol/L (136-145) Potassium Level 4.0 mmol/L (3.5-5.1) Chloride Level 109 mmol/L (98-107) Carbon Dioxide Level 28 mmol/L (21-32) Anion Gap 8 (6-14) Blood Urea Nitrogen 42 mg/dL (7-20) Creatinine 1.0 mg/dL (0.6-1.0) Estimated GFR (Cockcroft-Gault) 53.5 Glucose Level 287 mg/dL (70-99) Calcium Level 8.6 mg/dL (8.5-10.1) Laboratory Tests Test 05/11/18 12:19 05/11/18 14:10 05/11/18 17:02 05/11/18 21:00 Glucose (Fingerstick) 308 mg/dL (70-99) 122 mg/dL (70-99) Heparin Anti-Xa Act, Unfractionated 0.35 IU/mL (0.30-0.70) < 0.10 IU/mL (0.30-0.70) Test 05/11/18 22:01 05/12/18 03:30 05/12/18 07:20 Glucose (Fingerstick) 236 mg/dL (70-99) 298 mg/dL (70-99) White Blood Count 10.5 x10^3/uL (4.0-11.0) Red Blood Count 3.66 x10^6/uL (3.50-5.40) Hemoglobin 10.7 g/dL (12.0-15.5) Hematocrit 31.8 % (36.0-47.0) Mean Corpuscular Volume 87 fL (79-100) Mean Corpuscular Hemoglobin 29 pg (25-35) Mean Corpuscular Hemoglobin Concent 34 g/dL (31-37) Red Cell Distribution Width 15.7 % (11.5-14.5) Platelet Count 333 x10^3/uL (140-400) Neutrophils (%) (Auto) 74 % (31-73) Lymphocytes (%) (Auto) 21 % (24-48) Monocytes (%) (Auto) 5 % (0-9) Eosinophils (%) (Auto) 0 % (0-3) Basophils (%) (Auto) 0 % (0-3) Neutrophils # (Auto) 7.8 x10^3uL (1.8-7.7) Lymphocytes # (Auto) 2.2 x10^3/uL (1.0-4.8) Monocytes # (Auto) 0.5 x10^3/uL (0.0-1.1) Eosinophils # (Auto) 0.0 x10^3/uL (0.0-0.7) Basophils # (Auto) 0.0 x10^3/uL (0.0-0.2) Sodium Level 145 mmol/L (136-145) Potassium Level 4.0 mmol/L (3.5-5.1) Chloride Level 109 mmol/L (98-107) Carbon Dioxide Level 28 mmol/L (21-32) Anion Gap 8 (6-14) Blood Urea Nitrogen 42 mg/dL (7-20) Creatinine 1.0 mg/dL (0.6-1.0) Estimated GFR (Cockcroft-Gault) 53.5 Glucose Level 287 mg/dL (70-99) Calcium Level 8.6 mg/dL (8.5-10.1) Microbiology 05/10/18 Blood Culture - Preliminary, Resulted NO GROWTH AFTER 2 DAYS Medications Current Medications Sodium Chloride 1,000 ml @ 100 mls/hr Q10H IV Last administered on 05/10/18at 10:17; Start 05/10/18 at 09:45; Stop 05/10/18 at 12:49; Status DC Sodium Chloride 1,000 ml @ 1,560 mls/hr Q39M IV Last administered on at 11:15; Start 05/10/18 at 10:22; Stop 05/10/18 at 11:22; Status DC Ceftriaxone Sodium 50 ml @ 100 mls/hr 1X ONCE IV Last administered on at 11:15; Start 05/10/18 at 10:30; Stop 05/10/18 at 10:59; Status DC Aspirin (Children'S Aspirin) 324 mg 1X ONCE PO ; Start 05/10/18 at 10:30; Stop 05/10/18 at 10:31; Status DC Aspirin (Aspirin) 300 mg 1X ONCE OH ; Start 05/10/18 at 11:30; Stop 05/10/18 at 11:33; Status DC Acetaminophen (Tylenol) 500 mg PRN Q6HRS PRN PO MILD PAIN / TEMP; Start at 12:45; Status Cancel Ondansetron HCl (Zofran) 4 mg PRN Q6HRS PRN IV NAUSEA/VOMITING; Start at 12:45 Ondansetron HCl (Zofran Odt) 4 mg PRN Q6HRS PRN PO NAUSEA/VOMITING; Start at 12:45 Labetalol HCl (Normodyne Iv Push) 20 mg PRN Q2HR PRN IVP HYPERTENSION, SEE COMMENTS Last administered on 05/11/18at 08:55; Start 05/10/18 at 12:45 Insulin Human Lispro (HumaLOG) 0-9 UNITS TIDWMEALS SQ Last administered on at 12:33; Start 05/10/18 at 17:00 Dextrose (Dextrose 50%-Water Syringe) 12.5 gm PRN Q15MIN PRN IV SEE COMMENTS; Start 05/10/18 at 12:45 Insulin Human Lispro (HumaLOG) 10 units TIDAC SQ ; Start 05/10/18 at 16:30; Stop 05/10/18 at 18:14; Status DC Insulin Human Lispro (HumaLOG) 10 units 1X ONCE SQ ; Start 05/10/18 at 13:00; Stop 05/10/18 at 13:01; Status DC Insulin Glargine (Lantus) 20 units QHS SQ ; Start 05/10/18 at 21:00; Stop at 21:00; Status DC Labetalol HCl (Normodyne Iv Push) 20 mg 1X ONCE IVP ; Start 05/10/18 at 13:00 ; Stop 05/10/18 at 13:01; Status DC Ceftriaxone Sodium (Rocephin) 1 gm Q24H IVP Last administered on 05/11/18at 12: 30; Start 05/11/18 at 11:00 Amino Acids/ Glycerin/ Electrolytes 1,000 ml @ 100 mls/hr Q10H IV Last administered on 05/12/18at 05:26; Start 05/10/18 at 13:30 Lactobacillus Rhamnosus (Culturelle) 1 cap BID PO ; Start 05/10/18 at 21:00 Potassium Chloride (Klor-Con) 40 meq 1X ONCE PO Last administered on at 15:16; Start 05/10/18 at 14:30; Stop 05/10/18 at 14:31; Status DC Acetaminophen (Tylenol) 650 mg PRN Q4HRS PRN PO MILD PAIN; Start 05/10/18 at 14:15 Atorvastatin Calcium (Lipitor) 10 mg HS PO ; Start 05/10/18 at 21:00 Bisacodyl (Dulcolax Supp) 10 mg PRN DAILY PRN RC CONSTIPATION; Start 05/10/18 at 14:15 Chlorhexidine Gluconate (Peridex) 15 ml BID MM Last administered on 05/11/18at 21:00; Start 05/10/18 at 15:00 Docusate Sodium (Colace) 100 mg BID PO ; Start 05/10/18 at 21:00 Magnesium Hydroxide (Milk Of Magnesia) 400 mg PRN TID PRN PO CONSTIPATION; Start 05/10/18 at 14:15 Phenyleph/Shark Oil/Min Oil/Petrol (Preparation H) 1 rachael DAILY RC ; Start 05/11 at 09:00; Stop 05/11/18 at 09:00; Status DC Calcium/Vitamin D (Oscal D 500mg/ 200uts) 1 tab DAILY PO ; Start 05/11/18 at 09 :00 Non-Formulary Medication (Melatonin ) 3 mg HS PO ; Start 05/10/18 at 21:00; Status UNV Nystatin (Nystatin Oral Susp) 5 ml [id number] Last administered on at 22:21; Start 05/10/18 at 17:00 Aspirin (Daxa Aspirin) 325 mg 1X ONCE PO Last administered on 05/10/18at 15: 30; Start 05/10/18 at 15:30; Stop 05/10/18 at 15:31; Status DC Metoprolol Tartrate (Lopressor) 25 mg BID PO Last administered on 05/11/18at 02 :41; Start 05/10/18 at 17:30; Stop 05/11/18 at 14:25; Status DC Aspirin (Ecotrin) 81 mg DAILYWBKFT PO ; Start 05/11/18 at 08:00; Stop at 15:23; Status DC Heparin Sodium (Porcine) (Heparin Sodium) 2,700 unit 1X ONCE IV Last administered on 05/10/18at 18:34; Start 05/10/18 at 17:00; Stop 05/11/18 at 16 :33; Status DC Heparin Sodium/ Dextrose 500 ml @ 0 mls/hr CONT PRN IV SEE I/O RECORD Last administered on 05/10/18at 18:36; Start 05/10/18 at 17:00; Stop 05/11/18 at 16 :33; Status DC Heparin Sodium (Porcine) (Heparin Sodium) 1,100 unit PRN Q6HRS PRN IV FOR UFH LEVEL LESS THAN 0.2; Start 05/10/18 at 17:00; Stop 05/11/18 at 16:33; Status DC Info (Anti-Coagulation Monitoring By Pharmacy) 1 each PRN DAILY PRN MC SEE COMMENTS Last administered on 05/11/18at 11:14; Start 05/10/18 at 17:00; Stop 05/12/18 at 10:30; Status DC Insulin Glargine (Lantus) 16 units DAILY SQ ; Start 05/11/18 at 09:00 Phenyleph/Shark Oil/Min Oil/Petrol (Preparation H) 1 rachael DAILY PRN RC hemorrhoid; Start 05/11/18 at 09:00 Carvedilol (Coreg) 6.25 mg BIDWMEALS PO ; Start 05/11/18 at 17:00; Stop at 17:00; Status DC Metoprolol Tartrate (Lopressor Vial) 5 mg Q6HRS IVP Last administered on at 05:28; Start 05/11/18 at 16:00 Aspirin (Aspirin) 150 mg DAILY OH ; Start 05/12/18 at 09:00 Insulin Human Lispro (HumaLOG) 3 units 1X ONCE SQ Last administered on at 22:21; Start 05/11/18 at 22:15; Stop 05/11/18 at 22:16; Status DC Nitroglycerin (Nitro-Bid Oint) 1 inch Q6HRS TP ; Start 05/12/18 at 08:00 Active Scripts Active Reported Gnp Hemorrhoidal Ointment (Phenyleph/Mineral Oil/Petrolat) 57 Gm Oint.appl 57 Gm RC DAILY Calcium 500 + Vit D 400 Tablet (Calcium Carbonate/Vitamin D3) 1 Each Tablet 1 Each PO DAILY Nystatin 100,000 Unit/1 Ml Oral.susp 5 Ml PO QID Novolog Flexpen (Insulin Aspart) 100 Unit/1 Ml Insuln.pen 0-10 Unit SQ QIDACHS Milk Of Magnesia (Magnesium Hydroxide) 400 Mg/5 Ml Oral.susp 400 Mg PO TID PRN Melatonin 3 Mg Tablet 3 Mg PO HS Lipitor (Atorvastatin Calcium) 10 Mg Tablet 10 Mg PO HS Lantus Solostar (Insulin Glargine,Hum.rec.anlog) 100 Unit/1 Ml Insuln.pen 16 Unit SQ DAILY Docusate Sodium 100 Mg Capsule 100 Mg PO BID Peridex (Chlorhexidine Gluconate) 15 Ml Mouthwash 15 Ml MM BID Bisacodyl 10 Mg Supp.rect 10 Mg RC PRN DAILY PRN Acetaminophen 500 Mg Tablet 650 Mg PO Q4HRS PRN Vitals/I & O Vital Sign - Last 24 Hours 05/11/18 05/11/18 05/11/18 05/11/18 14:51 17:00 20:00 21:49 Temp 98.0 98.1 98.0 98.1 Pulse 88 68 66 Resp 22 18 B/P (MAP) 171/70 (103) 78/42 (54) Pulse Ox 95 98 O2 Delivery Room Air Room Air Room Air 05/11/18 05/12/18 05/12/18 05/12/18 23:09 00:20 00:20 03:15 Temp 96.6 98.4 96.6 98.4 Pulse 77 72 74 75 Resp 18 18 B/P (MAP) 128/70 (89) 128/70 188/94 (125) 179/73 (108) Pulse Ox 97 99 O2 Delivery Room Air Room Air 05/12/18 05/12/18 05:28 07:05 Temp 98.4 98.4 Pulse 75 68 Resp 16 B/P (MAP) 179/73 171/75 (107) Pulse Ox 96 O2 Delivery Room Air Nutrition Consultation Dietary Evaluation: Recommendations by RD: PPN/TPN Comments: Continue w/PPN for short-term nutrition needs Pt will likely need long-term non-oral nutrition, recommend consideration of PEG placement for tube feeding if appropriate per goals of care Expected Outcomes/Goals: Nutrition as appropriate per goals of care Malnutrition Findings: Body Fat Depletion (Non Severe: Mild Depletion Weight Status: Underweight HARLEY HENDERSON K III DO May 12, 2018 11:32
[2018-05-12] MEDS: INSULIN LISPRO 300 UNITS/3 ML INSULN.PEN. SQ SCH ×3 (12:00→18:17)
[2018-05-12] MEDS: NITROGLYCERIN OINT 1 GM PACKET. TP SCH ×3 (13:00→18:10)
[2018-05-12] MEDS: INSULIN GLARGINE 300 UNITS/3 ML INSULN.PEN. SQ SCH (13:27)
[2018-05-12] MEDS: cefTRIAXone IV Push 1 GM VIAL. IVP SCH (13:54)
[2018-05-12] MEDS: ATORVASTATIN CALCIUM 10 MG TABLET. PO SCH (19:59)
[2018-05-13] VITALS (7 sets, daily range): BP systolic 129–166; BP diastolic 63–96
[2018-05-13] MEDS: NITROGLYCERIN OINT 1 GM PACKET. TP SCH ×4 (01:24→18:08)
[2018-05-13] MEDS: METOPROLOL TARTRATE 5 MG/5 ML VIAL. IVP SCH ×4 (01:25→18:08)
[2018-05-13] MEDS: AMINO AC 3%/ELECTROLYTE/GLYCER 1,000 ML IV SCH ×3 (01:29→21:25)
[2018-05-13 04:14] LABS: BASO # 0.1 x10^3/uL (0.0-0.2); BASO % 1 % (0-3); EOS # 0.1 x10^3/uL (0.0-0.7); EOS % 1 % (0-3); HEMATOCRIT 31.2 % (36.0-47.0); HEMOGLOBIN 10.6 g/dL (12.0-15.5); LYMPH # 2.2 x10^3/uL (1.0-4.8); LYMPH % 24 % (24-48); MEAN CORPUSCULAR HEMOGLOBIN 29 pg (25-35); MEAN CORPUSCULAR HGB CONC 34 g/dL (31-37); MEAN CORPUSCULAR VOLUME 86 fL (79-100); MONO # 0.5 x10^3/uL (0.0-1.1); MONO % 6 % (0-9); NEUT # 6.3 x10^3uL (1.8-7.7); NEUT % 69 % (31-73); PLATELET COUNT 308 x10^3/uL (140-400); RED BLOOD COUNT 3.61 x10^6/uL (3.50-5.40); RED CELL DISTRIBUTION WIDTH 15.6 % (11.5-14.5); WHITE BLOOD COUNT 9.1 x10^3/uL (4.0-11.0)
[2018-05-13 04:33] LABS: CALCIUM 8.7 mg/dL (8.5-10.1); CREATININE 0.9 mg/dL (0.6-1.0); GFR 60.4
[2018-05-13] MEDS: CALCIUM CARB/VIT D3 500/200 TABLET. PO SCH (07:23)
[2018-05-13] MEDS: LACTOBACILLUS RHAMNOSUS GG 1 CAPSULE. PO SCH ×2 (07:23→20:04)
[2018-05-13] MEDS: DOCUSATE SODIUM 100 MG CAPSULE. PO SCH ×2 (07:23→20:04)
[2018-05-13] MEDS: ASPIRIN 300 MG SUPP.RECT PR SCH (08:51)
[2018-05-13] MEDS: NYSTATIN 100,000 UNITS/ML 5 ML ORAL.SUSP. SWSW SCH ×4 (08:51→21:25)
[2018-05-13] MEDS: CHLORHEXIDINE 0.12% 15 ML MOUTHWASH. MM SCH ×2 (08:51→21:25)
[2018-05-13] MEDS: INSULIN LISPRO 300 UNITS/3 ML INSULN.PEN. SQ SCH ×3 (08:56→17:00)
[2018-05-13] MEDS: INSULIN GLARGINE 300 UNITS/3 ML INSULN.PEN. SQ SCH (08:57)
[2018-05-13] MEDS: cefTRIAXone IV Push 1 GM VIAL. IVP SCH (10:21)
--- NOTE | 2018-05-13 10:58 | PDOC ---
PROGRESS NOTES Chief Complaint Chief Complaint Sepsis, UTI, NSTEMI, Renal insufficiency History of Present Illness History of Present Illness Pt was seen at bedside. today she was awake lying in bed but remained nonverbal. Pt is NAD, Procalamine on board SW- return to [facility] when medically stable Palliative Care attempted to contact DPOA to discuss goals of care Per neurology- ok to go home NSTEMI- TRP trending downward currently at 0.524 compared to max 2.5. Pt is being followed by Cardiology, Neurology, Nephrology, palliative care Vitals Vitals Vital Signs Date Time Temp Pulse Resp B/P (MAP) Pulse Ox O2 Delivery O2 Flow Rate FiO2 05/13/18 08:21 98.4 61 16 129/96 (107) 97 Room Air 98.4 Physical Exam Physical Exam Pt was seen awake but remained nonverbal, NAD, failure to thrive General: No acute distress, Other (Somnolent, minimally responsive to verbal command.) Heart: Regular rate, Normal S1, Normal S2, Other (2/6 systolic murmur ) Abdomen: Soft Extremities: No clubbing, No edema, Normal pulses Skin: No breakdown, No significant lesion Labs LABS Laboratory Tests Test 05/12/18 11:20 05/12/18 16:44 05/12/18 20:42 05/13/18 04:00 Glucose (Fingerstick) 327 mg/dL (70-99) 207 mg/dL (70-99) 73 mg/dL (70-99) White Blood Count 9.1 x10^3/uL (4.0-11.0) Red Blood Count 3.61 x10^6/uL (3.50-5.40) Hemoglobin 10.6 g/dL (12.0-15.5) Hematocrit 31.2 % (36.0-47.0) Mean Corpuscular Volume 86 fL (79-100) Mean Corpuscular Hemoglobin 29 pg (25-35) Mean Corpuscular Hemoglobin Concent 34 g/dL (31-37) Red Cell Distribution Width 15.6 % (11.5-14.5) Platelet Count 308 x10^3/uL (140-400) Neutrophils (%) (Auto) 69 % (31-73) Lymphocytes (%) (Auto) 24 % (24-48) Monocytes (%) (Auto) 6 % (0-9) Eosinophils (%) (Auto) 1 % (0-3) Basophils (%) (Auto) 1 % (0-3) Neutrophils # (Auto) 6.3 x10^3uL (1.8-7.7) Lymphocytes # (Auto) 2.2 x10^3/uL (1.0-4.8) Monocytes # (Auto) 0.5 x10^3/uL (0.0-1.1) Eosinophils # (Auto) 0.1 x10^3/uL (0.0-0.7) Basophils # (Auto) 0.1 x10^3/uL (0.0-0.2) Sodium Level 142 mmol/L (136-145) Potassium Level 4.0 mmol/L (3.5-5.1) Chloride Level 107 mmol/L (98-107) Carbon Dioxide Level 26 mmol/L (21-32) Anion Gap 9 (6-14) Blood Urea Nitrogen 38 mg/dL (7-20) Creatinine 0.9 mg/dL (0.6-1.0) Estimated GFR (Cockcroft-Gault) 60.4 Glucose Level 198 mg/dL (70-99) Calcium Level 8.7 mg/dL (8.5-10.1) Test 05/13/18 08:02 Glucose (Fingerstick) 255 mg/dL (70-99) Review of Systems Review of Systems Unable to obtain ROS due to nonverbal Assessment and Plan Assessmemt and Plan Assessment NSTEMI- resolving TRP 0.54 max 2.5 Renal failure- resolving Cr 1.0 Sepsis with resolving leukocytosis 10.5 Syncope UTI (urinary tract infection) Metabolic encephalopathy vs toxic encephalopathy vs dementia? Dysphagia MRSA positive Probable adult failure to thrive Plan CBC BMP Cardiac monitoring PT/OT VTE prophylaxis home meds Appreciate neurology input Appreciate Cardiology input Appreciate Nephrology input Appreciate Palliative care input peg vs hospice, await results of DPOA contact and goals of care Discharge disposition to [facility] when medically stable Comment Review of Relevant I have reviewed the following items violet (where applicable) has been applied. Labs Laboratory Tests Test 05/11/18 12:19 05/11/18 14:10 05/11/18 17:02 05/11/18 21:00 Glucose (Fingerstick) 308 mg/dL (70-99) 122 mg/dL (70-99) Heparin Anti-Xa Act, Unfractionated 0.35 IU/mL (0.30-0.70) < 0.10 IU/mL (0.30-0.70) Test 05/11/18 22:01 05/12/18 03:30 05/12/18 07:20 05/12/18 11:20 Glucose (Fingerstick) 236 mg/dL (70-99) 298 mg/dL (70-99) 327 mg/dL (70-99) White Blood Count 10.5 x10^3/uL (4.0-11.0) Red Blood Count 3.66 x10^6/uL (3.50-5.40) Hemoglobin 10.7 g/dL (12.0-15.5) Hematocrit 31.8 % (36.0-47.0) Mean Corpuscular Volume 87 fL (79-100) Mean Corpuscular Hemoglobin 29 pg (25-35) Mean Corpuscular Hemoglobin Concent 34 g/dL (31-37) Red Cell Distribution Width 15.7 % (11.5-14.5) Platelet Count 333 x10^3/uL (140-400) Neutrophils (%) (Auto) 74 % (31-73) Lymphocytes (%) (Auto) 21 % (24-48) Monocytes (%) (Auto) 5 % (0-9) Eosinophils (%) (Auto) 0 % (0-3) Basophils (%) (Auto) 0 % (0-3) Neutrophils # (Auto) 7.8 x10^3uL (1.8-7.7) Lymphocytes # (Auto) 2.2 x10^3/uL (1.0-4.8) Monocytes # (Auto) 0.5 x10^3/uL (0.0-1.1) Eosinophils # (Auto) 0.0 x10^3/uL (0.0-0.7) Basophils # (Auto) 0.0 x10^3/uL (0.0-0.2) Sodium Level 145 mmol/L (136-145) Potassium Level 4.0 mmol/L (3.5-5.1) Chloride Level 109 mmol/L (98-107) Carbon Dioxide Level 28 mmol/L (21-32) Anion Gap 8 (6-14) Blood Urea Nitrogen 42 mg/dL (7-20) Creatinine 1.0 mg/dL (0.6-1.0) Estimated GFR (Cockcroft-Gault) 53.5 Glucose Level 287 mg/dL (70-99) Calcium Level 8.6 mg/dL (8.5-10.1) Test 05/12/18 16:44 05/12/18 20:42 05/13/18 04:00 05/13/18 08:02 Glucose (Fingerstick) 207 mg/dL (70-99) 73 mg/dL (70-99) 255 mg/dL (70-99) White Blood Count 9.1 x10^3/uL (4.0-11.0) Red Blood Count 3.61 x10^6/uL (3.50-5.40) Hemoglobin 10.6 g/dL (12.0-15.5) Hematocrit 31.2 % (36.0-47.0) Mean Corpuscular Volume 86 fL (79-100) Mean Corpuscular Hemoglobin 29 pg (25-35) Mean Corpuscular Hemoglobin Concent 34 g/dL (31-37) Red Cell Distribution Width 15.6 % (11.5-14.5) Platelet Count 308 x10^3/uL (140-400) Neutrophils (%) (Auto) 69 % (31-73) Lymphocytes (%) (Auto) 24 % (24-48) Monocytes (%) (Auto) 6 % (0-9) Eosinophils (%) (Auto) 1 % (0-3) Basophils (%) (Auto) 1 % (0-3) Neutrophils # (Auto) 6.3 x10^3uL (1.8-7.7) Lymphocytes # (Auto) 2.2 x10^3/uL (1.0-4.8) Monocytes # (Auto) 0.5 x10^3/uL (0.0-1.1) Eosinophils # (Auto) 0.1 x10^3/uL (0.0-0.7) Basophils # (Auto) 0.1 x10^3/uL (0.0-0.2) Sodium Level 142 mmol/L (136-145) Potassium Level 4.0 mmol/L (3.5-5.1) Chloride Level 107 mmol/L (98-107) Carbon Dioxide Level 26 mmol/L (21-32) Anion Gap 9 (6-14) Blood Urea Nitrogen 38 mg/dL (7-20) Creatinine 0.9 mg/dL (0.6-1.0) Estimated GFR (Cockcroft-Gault) 60.4 Glucose Level 198 mg/dL (70-99) Calcium Level 8.7 mg/dL (8.5-10.1) Laboratory Tests Test 05/12/18 11:20 05/12/18 16:44 05/12/18 20:42 05/13/18 04:00 Glucose (Fingerstick) 327 mg/dL (70-99) 207 mg/dL (70-99) 73 mg/dL (70-99) White Blood Count 9.1 x10^3/uL (4.0-11.0) Red Blood Count 3.61 x10^6/uL (3.50-5.40) Hemoglobin 10.6 g/dL (12.0-15.5) Hematocrit 31.2 % (36.0-47.0) Mean Corpuscular Volume 86 fL (79-100) Mean Corpuscular Hemoglobin 29 pg (25-35) Mean Corpuscular Hemoglobin Concent 34 g/dL (31-37) Red Cell Distribution Width 15.6 % (11.5-14.5) Platelet Count 308 x10^3/uL (140-400) Neutrophils (%) (Auto) 69 % (31-73) Lymphocytes (%) (Auto) 24 % (24-48) Monocytes (%) (Auto) 6 % (0-9) Eosinophils (%) (Auto) 1 % (0-3) Basophils (%) (Auto) 1 % (0-3) Neutrophils # (Auto) 6.3 x10^3uL (1.8-7.7) Lymphocytes # (Auto) 2.2 x10^3/uL (1.0-4.8) Monocytes # (Auto) 0.5 x10^3/uL (0.0-1.1) Eosinophils # (Auto) 0.1 x10^3/uL (0.0-0.7) Basophils # (Auto) 0.1 x10^3/uL (0.0-0.2) Sodium Level 142 mmol/L (136-145) Potassium Level 4.0 mmol/L (3.5-5.1) Chloride Level 107 mmol/L (98-107) Carbon Dioxide Level 26 mmol/L (21-32) Anion Gap 9 (6-14) Blood Urea Nitrogen 38 mg/dL (7-20) Creatinine 0.9 mg/dL (0.6-1.0) Estimated GFR (Cockcroft-Gault) 60.4 Glucose Level 198 mg/dL (70-99) Calcium Level 8.7 mg/dL (8.5-10.1) Test 05/13/18 08:02 Glucose (Fingerstick) 255 mg/dL (70-99) Microbiology 05/10/18 Blood Culture - Preliminary, Resulted NO GROWTH AFTER 3 DAYS 05/10/18 Urine Culture - Preliminary, Resulted 05/10/18 Urine Culture Result 1 (PREM) - Preliminary, Resulted Medications Current Medications Sodium Chloride 1,000 ml @ 100 mls/hr Q10H IV Last administered on 05/10/18at 10:17; Start 05/10/18 at 09:45; Stop 05/10/18 at 12:49; Status DC Sodium Chloride 1,000 ml @ 1,560 mls/hr Q39M IV Last administered on at 11:15; Start 05/10/18 at 10:22; Stop 05/10/18 at 11:22; Status DC Ceftriaxone Sodium 50 ml @ 100 mls/hr 1X ONCE IV Last administered on at 11:15; Start 05/10/18 at 10:30; Stop 05/10/18 at 10:59; Status DC Aspirin (Children'S Aspirin) 324 mg 1X ONCE PO ; Start 05/10/18 at 10:30; Stop 05/10/18 at 10:31; Status DC Aspirin (Aspirin) 300 mg 1X ONCE NM ; Start 05/10/18 at 11:30; Stop 05/10/18 at 11:33; Status DC Acetaminophen (Tylenol) 500 mg PRN Q6HRS PRN PO MILD PAIN / TEMP; Start at 12:45; Status Cancel Ondansetron HCl (Zofran) 4 mg PRN Q6HRS PRN IV NAUSEA/VOMITING; Start at 12:45 Ondansetron HCl (Zofran Odt) 4 mg PRN Q6HRS PRN PO NAUSEA/VOMITING; Start at 12:45 Labetalol HCl (Normodyne Iv Push) 20 mg PRN Q2HR PRN IVP HYPERTENSION, SEE COMMENTS Last administered on 05/11/18at 08:55; Start 05/10/18 at 12:45 Insulin Human Lispro (HumaLOG) 0-9 UNITS TIDWMEALS SQ Last administered on 05/13at 08:56; Start 05/10/18 at 17:00 Dextrose (Dextrose 50%-Water Syringe) 12.5 gm PRN Q15MIN PRN IV SEE COMMENTS; Start 05/10/18 at 12:45 Insulin Human Lispro (HumaLOG) 10 units TIDAC SQ ; Start 05/10/18 at 16:30; Stop 05/10/18 at 18:14; Status DC Insulin Human Lispro (HumaLOG) 10 units 1X ONCE SQ ; Start 05/10/18 at 13:00; Stop 05/10/18 at 13:01; Status DC Insulin Glargine (Lantus) 20 units QHS SQ ; Start 05/10/18 at 21:00; Stop at 21:00; Status DC Labetalol HCl (Normodyne Iv Push) 20 mg 1X ONCE IVP ; Start 05/10/18 at 13:00 ; Stop 05/10/18 at 13:01; Status DC Ceftriaxone Sodium (Rocephin) 1 gm Q24H IVP Last administered on 05/13/18at 10: 21; Start 05/11/18 at 11:00 Amino Acids/ Glycerin/ Electrolytes 1,000 ml @ 100 mls/hr Q10H IV Last administered on 05/13/18at 10:20; Start 05/10/18 at 13:30 Lactobacillus Rhamnosus (Culturelle) 1 cap BID PO ; Start 05/10/18 at 21:00 Potassium Chloride (Klor-Con) 40 meq 1X ONCE PO Last administered on at 15:16; Start 05/10/18 at 14:30; Stop 05/10/18 at 14:31; Status DC Acetaminophen (Tylenol) 650 mg PRN Q4HRS PRN PO MILD PAIN; Start 05/10/18 at 14:15 Atorvastatin Calcium (Lipitor) 10 mg HS PO ; Start 05/10/18 at 21:00 Bisacodyl (Dulcolax Supp) 10 mg PRN DAILY PRN RC CONSTIPATION; Start 05/10/18 at 14:15 Chlorhexidine Gluconate (Peridex) 15 ml BID MM Last administered on 05/13/18at 08:51; Start 05/10/18 at 15:00 Docusate Sodium (Colace) 100 mg BID PO ; Start 05/10/18 at 21:00 Magnesium Hydroxide (Milk Of Magnesia) 400 mg PRN TID PRN PO CONSTIPATION; Start 05/10/18 at 14:15 Phenyleph/Shark Oil/Min Oil/Petrol (Preparation H) 1 rachael DAILY RC ; Start 05/11 at 09:00; Stop 05/11/18 at 09:00; Status DC Calcium/Vitamin D (Oscal D 500mg/ 200uts) 1 tab DAILY PO ; Start 05/11/18 at 09 :00 Non-Formulary Medication (Melatonin ) 3 mg HS PO ; Start 05/10/18 at 21:00; Status UNV Nystatin (Nystatin Oral Susp) 5 ml [id number] Last administered on 05/13/18at 08:51; Start 05/10/18 at 17:00 Aspirin (Daxa Aspirin) 325 mg 1X ONCE PO Last administered on 05/10/18at 15: 30; Start 05/10/18 at 15:30; Stop 05/10/18 at 15:31; Status DC Metoprolol Tartrate (Lopressor) 25 mg BID PO Last administered on 05/11/18at 02 :41; Start 05/10/18 at 17:30; Stop 05/11/18 at 14:25; Status DC Aspirin (Ecotrin) 81 mg DAILYWBKFT PO ; Start 05/11/18 at 08:00; Stop at 15:23; Status DC Heparin Sodium (Porcine) (Heparin Sodium) 2,700 unit 1X ONCE IV Last administered on 05/10/18at 18:34; Start 05/10/18 at 17:00; Stop 05/11/18 at 16 :33; Status DC Heparin Sodium/ Dextrose 500 ml @ 0 mls/hr CONT PRN IV SEE I/O RECORD Last administered on 05/10/18at 18:36; Start 05/10/18 at 17:00; Stop 05/11/18 at 16 :33; Status DC Heparin Sodium (Porcine) (Heparin Sodium) 1,100 unit PRN Q6HRS PRN IV FOR UFH LEVEL LESS THAN 0.2; Start 05/10/18 at 17:00; Stop 05/11/18 at 16:33; Status DC Info (Anti-Coagulation Monitoring By Pharmacy) 1 each PRN DAILY PRN MC SEE COMMENTS Last administered on 05/11/18at 11:14; Start 05/10/18 at 17:00; Stop 05/12/18 at 10:30; Status DC Insulin Glargine (Lantus) 16 units DAILY SQ Last administered on 05/13/18at 08: 57; Start 05/11/18 at 09:00 Phenyleph/Shark Oil/Min Oil/Petrol (Preparation H) 1 rachael DAILY PRN RC hemorrhoid; Start 05/11/18 at 09:00 Carvedilol (Coreg) 6.25 mg BIDWMEALS PO ; Start 05/11/18 at 17:00; Stop at 17:00; Status DC Metoprolol Tartrate (Lopressor Vial) 5 mg Q6HRS IVP Last administered on at 07:26; Start 05/11/18 at 16:00 Aspirin (Aspirin) 150 mg DAILY NM Last administered on 05/13/18at 08:51; Start 05/12/18 at 09:00 Insulin Human Lispro (HumaLOG) 3 units 1X ONCE SQ Last administered on at 22:21; Start 05/11/18 at 22:15; Stop 05/11/18 at 22:16; Status DC Nitroglycerin (Nitro-Bid Oint) 1 inch Q6HRS TP Last administered on 05/13/18at 07:26; Start 05/12/18 at 08:00 Active Scripts Active Reported Gnp Hemorrhoidal Ointment (Phenyleph/Mineral Oil/Petrolat) 57 Gm Oint.appl 57 Gm RC DAILY Calcium 500 + Vit D 400 Tablet (Calcium Carbonate/Vitamin D3) 1 Each Tablet 1 Each PO DAILY Nystatin 100,000 Unit/1 Ml Oral.susp 5 Ml PO QID Novolog Flexpen (Insulin Aspart) 100 Unit/1 Ml Insuln.pen 0-10 Unit SQ QIDACHS Milk Of Magnesia (Magnesium Hydroxide) 400 Mg/5 Ml Oral.susp 400 Mg PO TID PRN Melatonin 3 Mg Tablet 3 Mg PO HS Lipitor (Atorvastatin Calcium) 10 Mg Tablet 10 Mg PO HS Lantus Solostar (Insulin Glargine,Hum.rec.anlog) 100 Unit/1 Ml Insuln.pen 16 Unit SQ DAILY Docusate Sodium 100 Mg Capsule 100 Mg PO BID Peridex (Chlorhexidine Gluconate) 15 Ml Mouthwash 15 Ml MM BID Bisacodyl 10 Mg Supp.rect 10 Mg RC PRN DAILY PRN Acetaminophen 500 Mg Tablet 650 Mg PO Q4HRS PRN Vitals/I & O Vital Sign - Last 24 Hours 05/12/18 05/12/18 05/12/18 05/12/18 11:45 13:00 13:25 13:57 Temp 97.7 97.7 Pulse 72 72 72 72 Resp 16 B/P (MAP) 177/73 (107) 177/73 177/73 177/73 Pulse Ox 98 O2 Delivery Room Air 05/12/18 05/12/18 05/12/18 05/12/18 14:54 18:10 18:11 19:48 Temp 97.9 98.7 97.9 98.7 Pulse 71 71 71 72 Resp 16 14 B/P (MAP) 172/84 (113) 162/80 162/80 144/72 (96) Pulse Ox 98 96 O2 Delivery Room Air Room Air 05/12/18 05/12/18 05/13/18 05/13/18 20:00 23:49 01:24 01:25 Temp 98.4 98.4 Pulse 73 74 72 Resp 14 B/P (MAP) 122/63 (82) 154/73 154/73 Pulse Ox 99 O2 Delivery Room Air Room Air 05/13/18 05/13/18 05/13/18 05/13/18 03:40 07:00 07:26 07:26 Temp 97.5 98.4 97.5 98.4 Pulse 72 61 70 78 Resp 16 16 B/P (MAP) 133/76 (95) 129/96 (107) 148/70 148/70 Pulse Ox 96 97 O2 Delivery Room Air Room Air 05/13/18 05/13/18 08:00 08:21 Temp 98.4 98.4 Pulse 61 Resp 16 B/P (MAP) 129/96 (107) Pulse Ox 97 O2 Delivery Room Air Room Air Intake and Output 05/12/18 05/12/18 05/13/18 15:00 23:00 07:00 Intake Total 0 ml Output Total 1 ml Balance -1 ml Nutrition Consultation Dietary Evaluation: Recommendations by RD: PPN/TPN Comments: Continue w/PPN for short-term nutrition needs Pt will likely need long-term non-oral nutrition, recommend consideration of PEG placement for tube feeding if appropriate per goals of care Expected Outcomes/Goals: Nutrition as appropriate per goals of care Malnutrition Findings: Body Fat Depletion (Non Severe: Mild Depletion Weight Status: Underweight HARLEY HENDERSON K III DO May 13, 2018 10:58
[2018-05-13] MEDS: ATORVASTATIN CALCIUM 10 MG TABLET. PO SCH (20:04)
[2018-05-14] MEDS: METOPROLOL TARTRATE 5 MG/5 ML VIAL. IVP SCH ×5 (00:25→23:50)
[2018-05-14] MEDS: NITROGLYCERIN OINT 1 GM PACKET. TP SCH ×5 (00:26→23:50)
[2018-05-14 03:47] VITALS: BP 133/66
[2018-05-14 05:18] LABS: BASO % 0 % (0-3); EOS # 0.1 x10^3/uL (0.0-0.7); EOS % 1 % (0-3); HEMATOCRIT 31.5 % (36.0-47.0); HEMOGLOBIN 10.5 g/dL (12.0-15.5); LYMPH # 2.3 x10^3/uL (1.0-4.8); LYMPH % 26 % (24-48); MEAN CORPUSCULAR HEMOGLOBIN 29 pg (25-35); MEAN CORPUSCULAR HGB CONC 33 g/dL (31-37); MEAN CORPUSCULAR VOLUME 87 fL (79-100); MONO # 0.6 x10^3/uL (0.0-1.1); MONO % 7 % (0-9); NEUT # 5.8 x10^3uL (1.8-7.7); NEUT % 66 % (31-73); PLATELET COUNT 324 x10^3/uL (140-400); RED BLOOD COUNT 3.64 x10^6/uL (3.50-5.40); RED CELL DISTRIBUTION WIDTH 15.6 % (11.5-14.5); WHITE BLOOD COUNT 8.8 x10^3/uL (4.0-11.0)
[2018-05-14 05:37] LABS: CALCIUM 8.4 mg/dL (8.5-10.1); CREATININE 0.8 mg/dL (0.6-1.0); GFR 69.2; POTASSIUM 3.9 mmol/L (3.5-5.1)
[2018-05-14 07:25] VITALS: BP 183/75
[2018-05-14] MEDS: CHLORHEXIDINE 0.12% 15 ML MOUTHWASH. MM SCH ×2 (08:33→20:39)
[2018-05-14] MEDS: NYSTATIN 100,000 UNITS/ML 5 ML ORAL.SUSP. SWSW SCH ×4 (08:33→20:39)
[2018-05-14] MEDS: AMINO AC 3%/ELECTROLYTE/GLYCER 1,000 ML IV SCH ×2 (08:34→17:54)
[2018-05-14] MEDS: ASPIRIN 300 MG SUPP.RECT PR SCH (08:34)
[2018-05-14] MEDS: INSULIN GLARGINE 300 UNITS/3 ML INSULN.PEN. SQ SCH (08:52)
[2018-05-14] MEDS: INSULIN LISPRO 300 UNITS/3 ML INSULN.PEN. SQ SCH ×3 (08:52→17:00)
[2018-05-14] MEDS: LACTOBACILLUS RHAMNOSUS GG 1 CAPSULE. PO SCH ×2 (09:00→20:52)
[2018-05-14] MEDS: CALCIUM CARB/VIT D3 500/200 TABLET. PO SCH (09:00)
[2018-05-14] MEDS: DOCUSATE SODIUM 100 MG CAPSULE. PO SCH ×2 (09:00→20:52)
[2018-05-14 11:10] VITALS: BP 146/69
[2018-05-14] MEDS: cefTRIAXone IV Push 1 GM VIAL. IVP SCH (11:44)
--- NOTE | 2018-05-14 13:09 | PDOC ---
PROGRESS NOTES Chief Complaint Chief Complaint Sepsis, UTI, NSTEMI, Renal insufficiency History of Present Illness History of Present Illness Pt was seen at bedside. today she was awake lying halway out of bed, assisted her with repositioning and covering herself with a blanket, she remained nonverbal, Pt is NAD, SW- return to [facility] when medically stable Palliative Care attempted to contact DPOA to discuss goals of care Per neurology- ok to go home NSTEMI- TRP trending downward currently at 0.524 compared to max 2.5. Pt is being followed by Cardiology, Neurology, Nephrology, palliative care Vitals Vitals Vital Signs Date Time Temp Pulse Resp B/P (MAP) Pulse Ox O2 Delivery O2 Flow Rate FiO2 05/14/18 11:43 76 146/69 05/14/18 11:10 98.0 16 98 Room Air 98.0 Physical Exam Physical Exam Pt was seen awake but remained nonverbal, NAD, failure to thrive General: No acute distress, Other (Somnolent, minimally responsive to verbal command.) Heart: Regular rate, Normal S1, Normal S2, Other (2/6 systolic murmur ) Lungs: Clear Abdomen: Soft Extremities: No clubbing, No edema, Normal pulses Skin: No breakdown, No significant lesion Labs LABS Laboratory Tests Test 05/13/18 16:36 05/13/18 21:33 05/14/18 04:00 05/14/18 07:37 Glucose (Fingerstick) 83 mg/dL (70-99) 116 mg/dL (70-99) 195 mg/dL (70-99) White Blood Count 8.8 x10^3/uL (4.0-11.0) Red Blood Count 3.64 x10^6/uL (3.50-5.40) Hemoglobin 10.5 g/dL (12.0-15.5) Hematocrit 31.5 % (36.0-47.0) Mean Corpuscular Volume 87 fL (79-100) Mean Corpuscular Hemoglobin 29 pg (25-35) Mean Corpuscular Hemoglobin Concent 33 g/dL (31-37) Red Cell Distribution Width 15.6 % (11.5-14.5) Platelet Count 324 x10^3/uL (140-400) Neutrophils (%) (Auto) 66 % (31-73) Lymphocytes (%) (Auto) 26 % (24-48) Monocytes (%) (Auto) 7 % (0-9) Eosinophils (%) (Auto) 1 % (0-3) Basophils (%) (Auto) 0 % (0-3) Neutrophils # (Auto) 5.8 x10^3uL (1.8-7.7) Lymphocytes # (Auto) 2.3 x10^3/uL (1.0-4.8) Monocytes # (Auto) 0.6 x10^3/uL (0.0-1.1) Eosinophils # (Auto) 0.1 x10^3/uL (0.0-0.7) Basophils # (Auto) 0.0 x10^3/uL (0.0-0.2) Sodium Level 140 mmol/L (136-145) Potassium Level 3.9 mmol/L (3.5-5.1) Chloride Level 105 mmol/L (98-107) Carbon Dioxide Level 25 mmol/L (21-32) Anion Gap 10 (6-14) Blood Urea Nitrogen 33 mg/dL (7-20) Creatinine 0.8 mg/dL (0.6-1.0) Estimated GFR (Cockcroft-Gault) 69.2 Glucose Level 152 mg/dL (70-99) Calcium Level 8.4 mg/dL (8.5-10.1) Test 05/14/18 11:31 Glucose (Fingerstick) 193 mg/dL (70-99) Review of Systems Review of Systems Unable to obtain ROS due to nonverbal Assessment and Plan Assessmemt and Plan Assessment NSTEMI Renal failure Sepsis Syncope UTI (urinary tract infection) Dementia vs metabolic encephalopathy Palliative care? Plan CBC BMP Cardiac Monitoring VTE prophylaxis Home meds PT/OT Discharge to [place] when medically stable, palliative care attempting to contact DPOA to discuss goals Appreciate Neurology input Appreciate Cardiology input Appreciate nephrology input Appreciate palliative care input Comment Review of Relevant I have reviewed the following items violet (where applicable) has been applied. Labs Laboratory Tests Test 05/12/18 16:44 05/12/18 20:42 05/13/18 04:00 05/13/18 08:02 Glucose (Fingerstick) 207 mg/dL (70-99) 73 mg/dL (70-99) 255 mg/dL (70-99) White Blood Count 9.1 x10^3/uL (4.0-11.0) Red Blood Count 3.61 x10^6/uL (3.50-5.40) Hemoglobin 10.6 g/dL (12.0-15.5) Hematocrit 31.2 % (36.0-47.0) Mean Corpuscular Volume 86 fL (79-100) Mean Corpuscular Hemoglobin 29 pg (25-35) Mean Corpuscular Hemoglobin Concent 34 g/dL (31-37) Red Cell Distribution Width 15.6 % (11.5-14.5) Platelet Count 308 x10^3/uL (140-400) Neutrophils (%) (Auto) 69 % (31-73) Lymphocytes (%) (Auto) 24 % (24-48) Monocytes (%) (Auto) 6 % (0-9) Eosinophils (%) (Auto) 1 % (0-3) Basophils (%) (Auto) 1 % (0-3) Neutrophils # (Auto) 6.3 x10^3uL (1.8-7.7) Lymphocytes # (Auto) 2.2 x10^3/uL (1.0-4.8) Monocytes # (Auto) 0.5 x10^3/uL (0.0-1.1) Eosinophils # (Auto) 0.1 x10^3/uL (0.0-0.7) Basophils # (Auto) 0.1 x10^3/uL (0.0-0.2) Sodium Level 142 mmol/L (136-145) Potassium Level 4.0 mmol/L (3.5-5.1) Chloride Level 107 mmol/L (98-107) Carbon Dioxide Level 26 mmol/L (21-32) Anion Gap 9 (6-14) Blood Urea Nitrogen 38 mg/dL (7-20) Creatinine 0.9 mg/dL (0.6-1.0) Estimated GFR (Cockcroft-Gault) 60.4 Glucose Level 198 mg/dL (70-99) Calcium Level 8.7 mg/dL (8.5-10.1) Test 05/13/18 11:37 05/13/18 16:36 05/13/18 21:33 05/14/18 04:00 Glucose (Fingerstick) 174 mg/dL (70-99) 83 mg/dL (70-99) 116 mg/dL (70-99) White Blood Count 8.8 x10^3/uL (4.0-11.0) Red Blood Count 3.64 x10^6/uL (3.50-5.40) Hemoglobin 10.5 g/dL (12.0-15.5) Hematocrit 31.5 % (36.0-47.0) Mean Corpuscular Volume 87 fL (79-100) Mean Corpuscular Hemoglobin 29 pg (25-35) Mean Corpuscular Hemoglobin Concent 33 g/dL (31-37) Red Cell Distribution Width 15.6 % (11.5-14.5) Platelet Count 324 x10^3/uL (140-400) Neutrophils (%) (Auto) 66 % (31-73) Lymphocytes (%) (Auto) 26 % (24-48) Monocytes (%) (Auto) 7 % (0-9) Eosinophils (%) (Auto) 1 % (0-3) Basophils (%) (Auto) 0 % (0-3) Neutrophils # (Auto) 5.8 x10^3uL (1.8-7.7) Lymphocytes # (Auto) 2.3 x10^3/uL (1.0-4.8) Monocytes # (Auto) 0.6 x10^3/uL (0.0-1.1) Eosinophils # (Auto) 0.1 x10^3/uL (0.0-0.7) Basophils # (Auto) 0.0 x10^3/uL (0.0-0.2) Sodium Level 140 mmol/L (136-145) Potassium Level 3.9 mmol/L (3.5-5.1) Chloride Level 105 mmol/L (98-107) Carbon Dioxide Level 25 mmol/L (21-32) Anion Gap 10 (6-14) Blood Urea Nitrogen 33 mg/dL (7-20) Creatinine 0.8 mg/dL (0.6-1.0) Estimated GFR (Cockcroft-Gault) 69.2 Glucose Level 152 mg/dL (70-99) Calcium Level 8.4 mg/dL (8.5-10.1) Test 05/14/18 07:37 05/14/18 11:31 Glucose (Fingerstick) 195 mg/dL (70-99) 193 mg/dL (70-99) Laboratory Tests Test 05/13/18 16:36 05/13/18 21:33 05/14/18 04:00 05/14/18 07:37 Glucose (Fingerstick) 83 mg/dL (70-99) 116 mg/dL (70-99) 195 mg/dL (70-99) White Blood Count 8.8 x10^3/uL (4.0-11.0) Red Blood Count 3.64 x10^6/uL (3.50-5.40) Hemoglobin 10.5 g/dL (12.0-15.5) Hematocrit 31.5 % (36.0-47.0) Mean Corpuscular Volume 87 fL (79-100) Mean Corpuscular Hemoglobin 29 pg (25-35) Mean Corpuscular Hemoglobin Concent 33 g/dL (31-37) Red Cell Distribution Width 15.6 % (11.5-14.5) Platelet Count 324 x10^3/uL (140-400) Neutrophils (%) (Auto) 66 % (31-73) Lymphocytes (%) (Auto) 26 % (24-48) Monocytes (%) (Auto) 7 % (0-9) Eosinophils (%) (Auto) 1 % (0-3) Basophils (%) (Auto) 0 % (0-3) Neutrophils # (Auto) 5.8 x10^3uL (1.8-7.7) Lymphocytes # (Auto) 2.3 x10^3/uL (1.0-4.8) Monocytes # (Auto) 0.6 x10^3/uL (0.0-1.1) Eosinophils # (Auto) 0.1 x10^3/uL (0.0-0.7) Basophils # (Auto) 0.0 x10^3/uL (0.0-0.2) Sodium Level 140 mmol/L (136-145) Potassium Level 3.9 mmol/L (3.5-5.1) Chloride Level 105 mmol/L (98-107) Carbon Dioxide Level 25 mmol/L (21-32) Anion Gap 10 (6-14) Blood Urea Nitrogen 33 mg/dL (7-20) Creatinine 0.8 mg/dL (0.6-1.0) Estimated GFR (Cockcroft-Gault) 69.2 Glucose Level 152 mg/dL (70-99) Calcium Level 8.4 mg/dL (8.5-10.1) Test 05/14/18 11:31 Glucose (Fingerstick) 193 mg/dL (70-99) Microbiology 05/10/18 Blood Culture - Preliminary, Resulted NO GROWTH AFTER 4 DAYS 05/10/18 Urine Culture - Final, Complete 05/10/18 Urine Culture Result 1 (PREM) - Final, Complete 05/10/18 Antimicrobic Susceptibility - Final, Complete Medications Current Medications Sodium Chloride 1,000 ml @ 100 mls/hr Q10H IV Last administered on 05/10/18at 10:17; Start 05/10/18 at 09:45; Stop 05/10/18 at 12:49; Status DC Sodium Chloride 1,000 ml @ 1,560 mls/hr Q39M IV Last administered on at 11:15; Start 05/10/18 at 10:22; Stop 05/10/18 at 11:22; Status DC Ceftriaxone Sodium 50 ml @ 100 mls/hr 1X ONCE IV Last administered on at 11:15; Start 05/10/18 at 10:30; Stop 05/10/18 at 10:59; Status DC Aspirin (Children'S Aspirin) 324 mg 1X ONCE PO ; Start 05/10/18 at 10:30; Stop 05/10/18 at 10:31; Status DC Aspirin (Aspirin) 300 mg 1X ONCE AK ; Start 05/10/18 at 11:30; Stop 05/10/18 at 11:33; Status DC Acetaminophen (Tylenol) 500 mg PRN Q6HRS PRN PO MILD PAIN / TEMP; Start at 12:45; Status Cancel Ondansetron HCl (Zofran) 4 mg PRN Q6HRS PRN IV NAUSEA/VOMITING; Start at 12:45 Ondansetron HCl (Zofran Odt) 4 mg PRN Q6HRS PRN PO NAUSEA/VOMITING; Start at 12:45 Labetalol HCl (Normodyne Iv Push) 20 mg PRN Q2HR PRN IVP HYPERTENSION, SEE COMMENTS Last administered on 05/11/18at 08:55; Start 05/10/18 at 12:45 Insulin Human Lispro (HumaLOG) 0-9 UNITS TIDWMEALS SQ Last administered on 05/14at 11:52; Start 05/10/18 at 17:00 Dextrose (Dextrose 50%-Water Syringe) 12.5 gm PRN Q15MIN PRN IV SEE COMMENTS; Start 05/10/18 at 12:45 Insulin Human Lispro (HumaLOG) 10 units TIDAC SQ ; Start 05/10/18 at 16:30; Stop 05/10/18 at 18:14; Status DC Insulin Human Lispro (HumaLOG) 10 units 1X ONCE SQ ; Start 05/10/18 at 13:00; Stop 05/10/18 at 13:01; Status DC Insulin Glargine (Lantus) 20 units QHS SQ ; Start 05/10/18 at 21:00; Stop at 21:00; Status DC Labetalol HCl (Normodyne Iv Push) 20 mg 1X ONCE IVP ; Start 05/10/18 at 13:00 ; Stop 05/10/18 at 13:01; Status DC Ceftriaxone Sodium (Rocephin) 1 gm Q24H IVP Last administered on 05/14/18at 11: 44; Start 05/11/18 at 11:00 Amino Acids/ Glycerin/ Electrolytes 1,000 ml @ 100 mls/hr Q10H IV Last administered on 05/14/18at 08:34; Start 05/10/18 at 13:30 Lactobacillus Rhamnosus (Culturelle) 1 cap BID PO ; Start 05/10/18 at 21:00 Potassium Chloride (Klor-Con) 40 meq 1X ONCE PO Last administered on at 15:16; Start 05/10/18 at 14:30; Stop 05/10/18 at 14:31; Status DC Acetaminophen (Tylenol) 650 mg PRN Q4HRS PRN PO MILD PAIN; Start 05/10/18 at 14:15 Atorvastatin Calcium (Lipitor) 10 mg HS PO ; Start 05/10/18 at 21:00 Bisacodyl (Dulcolax Supp) 10 mg PRN DAILY PRN RC CONSTIPATION; Start 05/10/18 at 14:15 Chlorhexidine Gluconate (Peridex) 15 ml BID MM Last administered on 05/14/18at 08:33; Start 05/10/18 at 15:00 Docusate Sodium (Colace) 100 mg BID PO ; Start 05/10/18 at 21:00 Magnesium Hydroxide (Milk Of Magnesia) 400 mg PRN TID PRN PO CONSTIPATION; Start 05/10/18 at 14:15 Phenyleph/Shark Oil/Min Oil/Petrol (Preparation H) 1 rachael DAILY RC ; Start 05/11 at 09:00; Stop 05/11/18 at 09:00; Status DC Calcium/Vitamin D (Oscal D 500mg/ 200uts) 1 tab DAILY PO ; Start 05/11/18 at 09 :00 Non-Formulary Medication (Melatonin ) 3 mg HS PO ; Start 05/10/18 at 21:00; Status UNV Nystatin (Nystatin Oral Susp) 5 ml [id number] Last administered on 05/14/18at 08:33; Start 05/10/18 at 17:00 Aspirin (Daxa Aspirin) 325 mg 1X ONCE PO Last administered on 05/10/18at 15: 30; Start 05/10/18 at 15:30; Stop 05/10/18 at 15:31; Status DC Metoprolol Tartrate (Lopressor) 25 mg BID PO Last administered on 05/11/18at 02 :41; Start 05/10/18 at 17:30; Stop 05/11/18 at 14:25; Status DC Aspirin (Ecotrin) 81 mg DAILYWBKFT PO ; Start 05/11/18 at 08:00; Stop at 15:23; Status DC Heparin Sodium (Porcine) (Heparin Sodium) 2,700 unit 1X ONCE IV Last administered on 05/10/18at 18:34; Start 05/10/18 at 17:00; Stop 05/11/18 at 16 :33; Status DC Heparin Sodium/ Dextrose 500 ml @ 0 mls/hr CONT PRN IV SEE I/O RECORD Last administered on 05/10/18at 18:36; Start 05/10/18 at 17:00; Stop 05/11/18 at 16 :33; Status DC Heparin Sodium (Porcine) (Heparin Sodium) 1,100 unit PRN Q6HRS PRN IV FOR UFH LEVEL LESS THAN 0.2; Start 05/10/18 at 17:00; Stop 05/11/18 at 16:33; Status DC Info (Anti-Coagulation Monitoring By Pharmacy) 1 each PRN DAILY PRN MC SEE COMMENTS Last administered on 05/11/18at 11:14; Start 05/10/18 at 17:00; Stop 05/12/18 at 10:30; Status DC Insulin Glargine (Lantus) 16 units DAILY SQ Last administered on 05/14/18at 08: 52; Start 05/11/18 at 09:00 Phenyleph/Shark Oil/Min Oil/Petrol (Preparation H) 1 rachael DAILY PRN RC hemorrhoid; Start 05/11/18 at 09:00 Carvedilol (Coreg) 6.25 mg BIDWMEALS PO ; Start 05/11/18 at 17:00; Stop at 17:00; Status DC Metoprolol Tartrate (Lopressor Vial) 5 mg Q6HRS IVP Last administered on at 11:43; Start 05/11/18 at 16:00 Aspirin (Aspirin) 150 mg DAILY AK Last administered on 05/14/18at 08:34; Start 05/12/18 at 09:00 Insulin Human Lispro (HumaLOG) 3 units 1X ONCE SQ Last administered on at 22:21; Start 05/11/18 at 22:15; Stop 05/11/18 at 22:16; Status DC Nitroglycerin (Nitro-Bid Oint) 1 inch Q6HRS TP Last administered on 05/14/18at 11:43; Start 05/12/18 at 08:00 Active Scripts Active Reported Gnp Hemorrhoidal Ointment (Phenyleph/Mineral Oil/Petrolat) 57 Gm Oint.appl 57 Gm RC DAILY Calcium 500 + Vit D 400 Tablet (Calcium Carbonate/Vitamin D3) 1 Each Tablet 1 Each PO DAILY Nystatin 100,000 Unit/1 Ml Oral.susp 5 Ml PO QID Novolog Flexpen (Insulin Aspart) 100 Unit/1 Ml Insuln.pen 0-10 Unit SQ QIDACHS Milk Of Magnesia (Magnesium Hydroxide) 400 Mg/5 Ml Oral.susp 400 Mg PO TID PRN Melatonin 3 Mg Tablet 3 Mg PO HS Lipitor (Atorvastatin Calcium) 10 Mg Tablet 10 Mg PO HS Lantus Solostar (Insulin Glargine,Hum.rec.anlog) 100 Unit/1 Ml Insuln.pen 16 Unit SQ DAILY Docusate Sodium 100 Mg Capsule 100 Mg PO BID Peridex (Chlorhexidine Gluconate) 15 Ml Mouthwash 15 Ml MM BID Bisacodyl 10 Mg Supp.rect 10 Mg RC PRN DAILY PRN Acetaminophen 500 Mg Tablet 650 Mg PO Q4HRS PRN Vitals/I & O Vital Sign - Last 24 Hours 05/13/18 05/13/18 05/13/18 05/13/18 14:42 18:08 18:08 19:20 Temp 97.9 97.8 97.9 97.8 Pulse 78 78 78 73 Resp 16 18 B/P (MAP) 155/78 (103) 155/78 155/78 166/86 (112) Pulse Ox 96 97 O2 Delivery Room Air Room Air 05/13/18 05/13/18 05/14/18 05/14/18 20:29 23:20 00:25 00:26 Temp 97.9 97.9 Pulse 73 73 73 Resp 17 B/P (MAP) 141/63 (89) 141/63 141/63 Pulse Ox 98 O2 Delivery Room Air Room Air 05/14/18 05/14/18 05/14/18 05/14/18 03:47 06:20 06:21 07:25 Temp 98.2 98.3 98.2 98.3 Pulse 67 74 74 68 Resp 18 18 B/P (MAP) 133/66 (88) 133/66 133/66 183/75 (111) Pulse Ox 98 97 O2 Delivery Room Air Room Air 05/14/18 05/14/18 05/14/18 05/14/18 08:00 11:10 11:43 11:43 Temp 98.0 98.0 Pulse 76 76 76 Resp 16 B/P (MAP) 146/69 (94) 146/69 146/69 Pulse Ox 98 O2 Delivery Room Air Room Air Intake and Output 05/13/18 05/13/18 05/14/18 15:00 23:00 07:00 Intake Total 1000 ml 1000 ml 0 ml Balance 1000 ml 1000 ml 0 ml Nutrition Consultation Dietary Evaluation: Recommendations by RD: PPN/TPN Comments: Continue w/PPN for short-term nutrition needs Pt will likely need long-term non-oral nutrition, recommend consideration of PEG placement for tube feeding if appropriate per goals of care Expected Outcomes/Goals: Nutrition as appropriate per goals of care Malnutrition Findings: Body Fat Depletion (Non Severe: Mild Depletion Weight Status: Underweight LINDALE,NIAL K III DO May 14, 2018 13:09
[2018-05-14 15:00] VITALS: BP 186/99
[2018-05-14 19:00] VITALS: BP 176/84
[2018-05-14] MEDS: LABETALOL 20 MG/4 ML DISP.SYRIN. IVP PRN (20:42)
[2018-05-14] MEDS: ATORVASTATIN CALCIUM 10 MG TABLET. PO SCH (20:52)
[2018-05-14 23:42] VITALS: BP 151/65
[2018-05-15] VITALS (10 sets, daily range): BP systolic 126–182; BP diastolic 61–98
[2018-05-15] MEDS: AMINO AC 3%/ELECTROLYTE/GLYCER 1,000 ML IV SCH ×3 (03:41→23:39)
[2018-05-15] MEDS: NITROGLYCERIN OINT 1 GM PACKET. TP SCH ×4 (06:08→23:40)
[2018-05-15] MEDS: METOPROLOL TARTRATE 5 MG/5 ML VIAL. IVP SCH ×4 (06:08→23:41)
[2018-05-15 06:17] LABS: BASO % 1 % (0-3); EOS # 0.1 x10^3/uL (0.0-0.7); EOS % 1 % (0-3); HEMATOCRIT 35.6 % (36.0-47.0); HEMOGLOBIN 11.8 g/dL (12.0-15.5); LYMPH # 1.7 x10^3/uL (1.0-4.8); LYMPH % 25 % (24-48); MEAN CORPUSCULAR HEMOGLOBIN 29 pg (25-35); MEAN CORPUSCULAR HGB CONC 33 g/dL (31-37); MEAN CORPUSCULAR VOLUME 86 fL (79-100); MONO # 0.4 x10^3/uL (0.0-1.1); MONO % 6 % (0-9); NEUT # 4.6 x10^3uL (1.8-7.7); NEUT % 67 % (31-73); PLATELET COUNT 355 x10^3/uL (140-400); RED BLOOD COUNT 4.12 x10^6/uL (3.50-5.40); RED CELL DISTRIBUTION WIDTH 15.5 % (11.5-14.5); WHITE BLOOD COUNT 6.8 x10^3/uL (4.0-11.0)
[2018-05-15 06:44] LABS: CALCIUM 8.8 mg/dL (8.5-10.1); CREATININE 0.8 mg/dL (0.6-1.0); GFR 69.2; POTASSIUM 3.5 mmol/L (3.5-5.1)
[2018-05-15] MEDS: LACTOBACILLUS RHAMNOSUS GG 1 CAPSULE. PO SCH ×2 (09:00→21:00)
[2018-05-15] MEDS: ASPIRIN 300 MG SUPP.RECT PR SCH (09:00)
[2018-05-15] MEDS: DOCUSATE SODIUM 100 MG CAPSULE. PO SCH ×2 (09:00→21:00)
[2018-05-15] MEDS: CALCIUM CARB/VIT D3 500/200 TABLET. PO SCH (09:00)
[2018-05-15] MEDS: NYSTATIN 100,000 UNITS/ML 5 ML ORAL.SUSP. SWSW SCH ×4 (09:14→21:00)
[2018-05-15] MEDS: CHLORHEXIDINE 0.12% 15 ML MOUTHWASH. MM SCH ×2 (09:14→21:00)
[2018-05-15] MEDS: INSULIN LISPRO 300 UNITS/3 ML INSULN.PEN. SQ SCH ×3 (09:27→17:00)
[2018-05-15] MEDS: INSULIN GLARGINE 300 UNITS/3 ML INSULN.PEN. SQ SCH (09:29)
[2018-05-15] MEDS: cefTRIAXone IV Push 1 GM VIAL. IVP SCH (11:18)
--- NOTE | 2018-05-15 11:22 | PDOC ---
PROGRESS NOTES Chief Complaint Chief Complaint Sepsis, UTI, NSTEMI, Renal insufficiency History of Present Illness History of Present Illness Pt was seen at bedside. Patient is non-verbal. Expect discharge to [facility] according to palliative care. Vitals Vitals Vital Signs Date Time Temp Pulse Resp B/P (MAP) Pulse Ox O2 Delivery O2 Flow Rate FiO2 05/15/18 11:14 97.3 71 16 154/86 (108) 99 Room Air 97.3 Physical Exam Physical Exam Pt was seen awake but remained nonverbal, NAD, failure to thrive General: No acute distress, Other (Somnolent, minimally responsive to verbal command.) Heart: Regular rate, Normal S1, Normal S2, Other (2/6 systolic murmur ) Lungs: Clear Abdomen: Soft Extremities: No clubbing, No edema, Normal pulses Skin: No breakdown, No significant lesion Labs LABS Laboratory Tests Test 05/14/18 11:31 05/14/18 17:14 05/14/18 20:38 05/15/18 05:00 Glucose (Fingerstick) 193 mg/dL (70-99) 110 mg/dL (70-99) 107 mg/dL (70-99) Sodium Level 139 mmol/L (136-145) Potassium Level 3.5 mmol/L (3.5-5.1) Chloride Level 104 mmol/L (98-107) Carbon Dioxide Level 25 mmol/L (21-32) Anion Gap 10 (6-14) Blood Urea Nitrogen 29 mg/dL (7-20) Creatinine 0.8 mg/dL (0.6-1.0) Estimated GFR (Cockcroft-Gault) 69.2 Glucose Level 201 mg/dL (70-99) Calcium Level 8.8 mg/dL (8.5-10.1) Test 05/15/18 05:20 05/15/18 07:49 05/15/18 10:57 White Blood Count 6.8 x10^3/uL (4.0-11.0) Red Blood Count 4.12 x10^6/uL (3.50-5.40) Hemoglobin 11.8 g/dL (12.0-15.5) Hematocrit 35.6 % (36.0-47.0) Mean Corpuscular Volume 86 fL (79-100) Mean Corpuscular Hemoglobin 29 pg (25-35) Mean Corpuscular Hemoglobin Concent 33 g/dL (31-37) Red Cell Distribution Width 15.5 % (11.5-14.5) Platelet Count 355 x10^3/uL (140-400) Neutrophils (%) (Auto) 67 % (31-73) Lymphocytes (%) (Auto) 25 % (24-48) Monocytes (%) (Auto) 6 % (0-9) Eosinophils (%) (Auto) 1 % (0-3) Basophils (%) (Auto) 1 % (0-3) Neutrophils # (Auto) 4.6 x10^3uL (1.8-7.7) Lymphocytes # (Auto) 1.7 x10^3/uL (1.0-4.8) Monocytes # (Auto) 0.4 x10^3/uL (0.0-1.1) Eosinophils # (Auto) 0.1 x10^3/uL (0.0-0.7) Basophils # (Auto) 0.0 x10^3/uL (0.0-0.2) Glucose (Fingerstick) 227 mg/dL (70-99) 206 mg/dL (70-99) Review of Systems Review of Systems Patient unresponsive to questioning. Assessment and Plan Assessmemt and Plan Problems Medical Problems: (1) Myocardial infarction Status: Acute (2) Renal failure Status: Acute (3) Sepsis Status: Acute (4) Syncope Status: Acute (5) UTI (urinary tract infection) Status: Acute Assessment: 1. Sepsis -resolved 2. UTI- resolved Plan: 1. Awaiting discharge to be finalized 2. Labs 3. Appreciate palliative care consult 4. home meds 5. Appreciate subspecialty input Comment Review of Relevant I have reviewed the following items violet (where applicable) has been applied. Labs Laboratory Tests Test 05/13/18 11:37 05/13/18 16:36 05/13/18 21:33 05/14/18 04:00 Glucose (Fingerstick) 174 mg/dL (70-99) 83 mg/dL (70-99) 116 mg/dL (70-99) White Blood Count 8.8 x10^3/uL (4.0-11.0) Red Blood Count 3.64 x10^6/uL (3.50-5.40) Hemoglobin 10.5 g/dL (12.0-15.5) Hematocrit 31.5 % (36.0-47.0) Mean Corpuscular Volume 87 fL (79-100) Mean Corpuscular Hemoglobin 29 pg (25-35) Mean Corpuscular Hemoglobin Concent 33 g/dL (31-37) Red Cell Distribution Width 15.6 % (11.5-14.5) Platelet Count 324 x10^3/uL (140-400) Neutrophils (%) (Auto) 66 % (31-73) Lymphocytes (%) (Auto) 26 % (24-48) Monocytes (%) (Auto) 7 % (0-9) Eosinophils (%) (Auto) 1 % (0-3) Basophils (%) (Auto) 0 % (0-3) Neutrophils # (Auto) 5.8 x10^3uL (1.8-7.7) Lymphocytes # (Auto) 2.3 x10^3/uL (1.0-4.8) Monocytes # (Auto) 0.6 x10^3/uL (0.0-1.1) Eosinophils # (Auto) 0.1 x10^3/uL (0.0-0.7) Basophils # (Auto) 0.0 x10^3/uL (0.0-0.2) Sodium Level 140 mmol/L (136-145) Potassium Level 3.9 mmol/L (3.5-5.1) Chloride Level 105 mmol/L (98-107) Carbon Dioxide Level 25 mmol/L (21-32) Anion Gap 10 (6-14) Blood Urea Nitrogen 33 mg/dL (7-20) Creatinine 0.8 mg/dL (0.6-1.0) Estimated GFR (Cockcroft-Gault) 69.2 Glucose Level 152 mg/dL (70-99) Calcium Level 8.4 mg/dL (8.5-10.1) Test 05/14/18 07:37 05/14/18 11:31 05/14/18 17:14 05/14/18 20:38 Glucose (Fingerstick) 195 mg/dL (70-99) 193 mg/dL (70-99) 110 mg/dL (70-99) 107 mg/dL (70-99) Test 12/3/18 05:00 05/15/18 05:20 05/15/18 07:49 05/15/18 10:57 Sodium Level 139 mmol/L (136-145) Potassium Level 3.5 mmol/L (3.5-5.1) Chloride Level 104 mmol/L (98-107) Carbon Dioxide Level 25 mmol/L (21-32) Anion Gap 10 (6-14) Blood Urea Nitrogen 29 mg/dL (7-20) Creatinine 0.8 mg/dL (0.6-1.0) Estimated GFR (Cockcroft-Gault) 69.2 Glucose Level 201 mg/dL (70-99) Calcium Level 8.8 mg/dL (8.5-10.1) White Blood Count 6.8 x10^3/uL (4.0-11.0) Red Blood Count 4.12 x10^6/uL (3.50-5.40) Hemoglobin 11.8 g/dL (12.0-15.5) Hematocrit 35.6 % (36.0-47.0) Mean Corpuscular Volume 86 fL (79-100) Mean Corpuscular Hemoglobin 29 pg (25-35) Mean Corpuscular Hemoglobin Concent 33 g/dL (31-37) Red Cell Distribution Width 15.5 % (11.5-14.5) Platelet Count 355 x10^3/uL (140-400) Neutrophils (%) (Auto) 67 % (31-73) Lymphocytes (%) (Auto) 25 % (24-48) Monocytes (%) (Auto) 6 % (0-9) Eosinophils (%) (Auto) 1 % (0-3) Basophils (%) (Auto) 1 % (0-3) Neutrophils # (Auto) 4.6 x10^3uL (1.8-7.7) Lymphocytes # (Auto) 1.7 x10^3/uL (1.0-4.8) Monocytes # (Auto) 0.4 x10^3/uL (0.0-1.1) Eosinophils # (Auto) 0.1 x10^3/uL (0.0-0.7) Basophils # (Auto) 0.0 x10^3/uL (0.0-0.2) Glucose (Fingerstick) 227 mg/dL (70-99) 206 mg/dL (70-99) Laboratory Tests Test 05/14/18 11:31 05/14/18 17:14 05/14/18 20:38 05/15/18 05:00 Glucose (Fingerstick) 193 mg/dL (70-99) 110 mg/dL (70-99) 107 mg/dL (70-99) Sodium Level 139 mmol/L (136-145) Potassium Level 3.5 mmol/L (3.5-5.1) Chloride Level 104 mmol/L (98-107) Carbon Dioxide Level 25 mmol/L (21-32) Anion Gap 10 (6-14) Blood Urea Nitrogen 29 mg/dL (7-20) Creatinine 0.8 mg/dL (0.6-1.0) Estimated GFR (Cockcroft-Gault) 69.2 Glucose Level 201 mg/dL (70-99) Calcium Level 8.8 mg/dL (8.5-10.1) Test 05/15/18 05:20 05/15/18 07:49 05/15/18 10:57 White Blood Count 6.8 x10^3/uL (4.0-11.0) Red Blood Count 4.12 x10^6/uL (3.50-5.40) Hemoglobin 11.8 g/dL (12.0-15.5) Hematocrit 35.6 % (36.0-47.0) Mean Corpuscular Volume 86 fL (79-100) Mean Corpuscular Hemoglobin 29 pg (25-35) Mean Corpuscular Hemoglobin Concent 33 g/dL (31-37) Red Cell Distribution Width 15.5 % (11.5-14.5) Platelet Count 355 x10^3/uL (140-400) Neutrophils (%) (Auto) 67 % (31-73) Lymphocytes (%) (Auto) 25 % (24-48) Monocytes (%) (Auto) 6 % (0-9) Eosinophils (%) (Auto) 1 % (0-3) Basophils (%) (Auto) 1 % (0-3) Neutrophils # (Auto) 4.6 x10^3uL (1.8-7.7) Lymphocytes # (Auto) 1.7 x10^3/uL (1.0-4.8) Monocytes # (Auto) 0.4 x10^3/uL (0.0-1.1) Eosinophils # (Auto) 0.1 x10^3/uL (0.0-0.7) Basophils # (Auto) 0.0 x10^3/uL (0.0-0.2) Glucose (Fingerstick) 227 mg/dL (70-99) 206 mg/dL (70-99) Microbiology 05/10/18 Blood Culture - Final, Complete NO GROWTH AFTER 5 DAYS 05/10/18 Urine Culture - Final, Complete 05/10/18 Urine Culture Result 1 (PREM) - Final, Complete 05/10/18 Antimicrobic Susceptibility - Final, Complete Medications Current Medications Sodium Chloride 1,000 ml @ 100 mls/hr Q10H IV Last administered on 05/10/18at 10:17; Start 05/10/18 at 09:45; Stop 05/10/18 at 12:49; Status DC Sodium Chloride 1,000 ml @ 1,560 mls/hr Q39M IV Last administered on at 11:15; Start 05/10/18 at 10:22; Stop 05/10/18 at 11:22; Status DC Ceftriaxone Sodium 50 ml @ 100 mls/hr 1X ONCE IV Last administered on at 11:15; Start 05/10/18 at 10:30; Stop 05/10/18 at 10:59; Status DC Aspirin (Children'S Aspirin) 324 mg 1X ONCE PO ; Start 05/10/18 at 10:30; Stop 05/10/18 at 10:31; Status DC Aspirin (Aspirin) 300 mg 1X ONCE MD ; Start 05/10/18 at 11:30; Stop 05/10/18 at 11:33; Status DC Acetaminophen (Tylenol) 500 mg PRN Q6HRS PRN PO MILD PAIN / TEMP; Start at 12:45; Status Cancel Ondansetron HCl (Zofran) 4 mg PRN Q6HRS PRN IV NAUSEA/VOMITING; Start at 12:45 Ondansetron HCl (Zofran Odt) 4 mg PRN Q6HRS PRN PO NAUSEA/VOMITING; Start at 12:45 Labetalol HCl (Normodyne Iv Push) 20 mg PRN Q2HR PRN IVP HYPERTENSION, SEE COMMENTS Last administered on 05/14/18at 20:42; Start 05/10/18 at 12:45 Insulin Human Lispro (HumaLOG) 0-9 UNITS TIDWMEALS SQ Last administered on 05/15at 09:27; Start 05/10/18 at 17:00 Dextrose (Dextrose 50%-Water Syringe) 12.5 gm PRN Q15MIN PRN IV SEE COMMENTS; Start 05/10/18 at 12:45 Insulin Human Lispro (HumaLOG) 10 units TIDAC SQ ; Start 05/10/18 at 16:30; Stop 05/10/18 at 18:14; Status DC Insulin Human Lispro (HumaLOG) 10 units 1X ONCE SQ ; Start 05/10/18 at 13:00; Stop 05/10/18 at 13:01; Status DC Insulin Glargine (Lantus) 20 units QHS SQ ; Start 05/10/18 at 21:00; Stop at 21:00; Status DC Labetalol HCl (Normodyne Iv Push) 20 mg 1X ONCE IVP ; Start 05/10/18 at 13:00 ; Stop 05/10/18 at 13:01; Status DC Ceftriaxone Sodium (Rocephin) 1 gm Q24H IVP Last administered on 05/14/18at 11: 44; Start 05/11/18 at 11:00 Amino Acids/ Glycerin/ Electrolytes 1,000 ml @ 100 mls/hr Q10H IV Last administered on 05/15/18at 03:41; Start 05/10/18 at 13:30 Lactobacillus Rhamnosus (Culturelle) 1 cap BID PO ; Start 05/10/18 at 21:00 Potassium Chloride (Klor-Con) 40 meq 1X ONCE PO Last administered on at 15:16; Start 05/10/18 at 14:30; Stop 05/10/18 at 14:31; Status DC Acetaminophen (Tylenol) 650 mg PRN Q4HRS PRN PO MILD PAIN; Start 05/10/18 at 14:15 Atorvastatin Calcium (Lipitor) 10 mg HS PO ; Start 05/10/18 at 21:00 Bisacodyl (Dulcolax Supp) 10 mg PRN DAILY PRN RC CONSTIPATION; Start 05/10/18 at 14:15 Chlorhexidine Gluconate (Peridex) 15 ml BID MM Last administered on 05/15/18at 09:14; Start 05/10/18 at 15:00 Docusate Sodium (Colace) 100 mg BID PO ; Start 05/10/18 at 21:00 Magnesium Hydroxide (Milk Of Magnesia) 400 mg PRN TID PRN PO CONSTIPATION; Start 05/10/18 at 14:15 Phenyleph/Shark Oil/Min Oil/Petrol (Preparation H) 1 rachael DAILY RC ; Start 05/11 at 09:00; Stop 05/11/18 at 09:00; Status DC Calcium/Vitamin D (Oscal D 500mg/ 200uts) 1 tab DAILY PO ; Start 05/11/18 at 09 :00 Non-Formulary Medication (Melatonin ) 3 mg HS PO ; Start 05/10/18 at 21:00; Status UNV Nystatin (Nystatin Oral Susp) 5 ml [id number] Last administered on 05/15/18at 09:14; Start 05/10/18 at 17:00 Aspirin (Daxa Aspirin) 325 mg 1X ONCE PO Last administered on 05/10/18at 15: 30; Start 05/10/18 at 15:30; Stop 05/10/18 at 15:31; Status DC Metoprolol Tartrate (Lopressor) 25 mg BID PO Last administered on 05/11/18at 02 :41; Start 05/10/18 at 17:30; Stop 05/11/18 at 14:25; Status DC Aspirin (Ecotrin) 81 mg DAILYWBKFT PO ; Start 05/11/18 at 08:00; Stop at 15:23; Status DC Heparin Sodium (Porcine) (Heparin Sodium) 2,700 unit 1X ONCE IV Last administered on 05/10/18at 18:34; Start 05/10/18 at 17:00; Stop 05/11/18 at 16 :33; Status DC Heparin Sodium/ Dextrose 500 ml @ 0 mls/hr CONT PRN IV SEE I/O RECORD Last administered on 05/10/18at 18:36; Start 05/10/18 at 17:00; Stop 05/11/18 at 16 :33; Status DC Heparin Sodium (Porcine) (Heparin Sodium) 1,100 unit PRN Q6HRS PRN IV FOR UFH LEVEL LESS THAN 0.2; Start 05/10/18 at 17:00; Stop 05/11/18 at 16:33; Status DC Info (Anti-Coagulation Monitoring By Pharmacy) 1 each PRN DAILY PRN MC SEE COMMENTS Last administered on 05/11/18at 11:14; Start 05/10/18 at 17:00; Stop 05/12/18 at 10:30; Status DC Insulin Glargine (Lantus) 16 units DAILY SQ Last administered on 05/15/18at 09: 29; Start 05/11/18 at 09:00 Phenyleph/Shark Oil/Min Oil/Petrol (Preparation H) 1 rachael DAILY PRN RC hemorrhoid; Start 05/11/18 at 09:00 Carvedilol (Coreg) 6.25 mg BIDWMEALS PO ; Start 05/11/18 at 17:00; Stop at 17:00; Status DC Metoprolol Tartrate (Lopressor Vial) 5 mg Q6HRS IVP Last administered on at 06:08; Start 05/11/18 at 16:00 Aspirin (Aspirin) 150 mg DAILY MD Last administered on 05/15/18at 09:00; Start 05/12/18 at 09:00 Insulin Human Lispro (HumaLOG) 3 units 1X ONCE SQ Last administered on at 22:21; Start 05/11/18 at 22:15; Stop 05/11/18 at 22:16; Status DC Nitroglycerin (Nitro-Bid Oint) 1 inch Q6HRS TP Last administered on 05/15/18at 06:08; Start 05/12/18 at 08:00 Active Scripts Active Reported Gnp Hemorrhoidal Ointment (Phenyleph/Mineral Oil/Petrolat) 57 Gm Oint.appl 57 Gm RC DAILY Calcium 500 + Vit D 400 Tablet (Calcium Carbonate/Vitamin D3) 1 Each Tablet 1 Each PO DAILY Nystatin 100,000 Unit/1 Ml Oral.susp 5 Ml PO QID Novolog Flexpen (Insulin Aspart) 100 Unit/1 Ml Insuln.pen 0-10 Unit SQ QIDACHS Milk Of Magnesia (Magnesium Hydroxide) 400 Mg/5 Ml Oral.susp 400 Mg PO TID PRN Melatonin 3 Mg Tablet 3 Mg PO HS Lipitor (Atorvastatin Calcium) 10 Mg Tablet 10 Mg PO HS Lantus Solostar (Insulin Glargine,Hum.rec.anlog) 100 Unit/1 Ml Insuln.pen 16 Unit SQ DAILY Docusate Sodium 100 Mg Capsule 100 Mg PO BID Peridex (Chlorhexidine Gluconate) 15 Ml Mouthwash 15 Ml MM BID Bisacodyl 10 Mg Supp.rect 10 Mg RC PRN DAILY PRN Acetaminophen 500 Mg Tablet 650 Mg PO Q4HRS PRN Vitals/I & O Vital Sign - Last 24 Hours 05/14/18 05/14/18 05/14/18 05/14/18 11:43 11:43 15:00 17:54 Temp 98.0 98.0 Pulse 76 76 74 74 Resp 16 B/P (MAP) 146/69 146/69 186/99 (128) 186/99 Pulse Ox 98 O2 Delivery Room Air 05/14/18 05/14/18 05/14/18 05/14/18 17:54 19:00 19:25 20:42 Temp 98.3 98.3 Pulse 74 74 74 Resp 18 B/P (MAP) 186/99 176/84 (114) 176/84 Pulse Ox 95 O2 Delivery Room Air Room Air 05/14/18 05/14/18 05/14/18 05/15/18 23:42 23:50 23:50 03:00 Temp 98.4 98.5 98.4 98.5 Pulse 79 76 76 89 Resp 16 16 B/P (MAP) 151/65 (93) 151/65 151/65 162/79 (106) Pulse Ox 98 98 O2 Delivery Room Air Room Air 05/15/18 05/15/18 05/15/18 05/15/18 05:59 06:08 06:08 07:20 Temp 97.6 97.6 Pulse 71 71 71 67 Resp 16 B/P (MAP) 126/61 (82) 126/61 126/61 182/72 (108) Pulse Ox 98 O2 Delivery Room Air 05/15/18 11:14 Temp 97.3 97.3 Pulse 71 Resp 16 B/P (MAP) 154/86 (108) Pulse Ox 99 O2 Delivery Room Air Intake and Output 05/14/18 05/14/18 05/15/18 15:00 23:00 07:00 Intake Total 0 ml 0 ml Balance 0 ml 0 ml Nutrition Consultation Dietary Evaluation: Recommendations by RD: PPN/TPN Comments: Continue w/PPN for short-term nutrition needs Pt will likely need long-term non-oral nutrition, recommend consideration of PEG placement for tube feeding if appropriate per goals of care Expected Outcomes/Goals: Nutrition as appropriate per goals of care Malnutrition Findings: Body Fat Depletion (Non Severe: Mild Depletion Weight Status: Underweight CASTLENIAL K III DO May 15, 2018 11:22
--- NOTE | 2018-05-15 11:29 | PDOC2 ---
PALLIATIVE CARE Palliative Care Note Palliative Care Patient more alert today. Does not respond verbally. Received return call from Dell Rivera KATHLEEN. Reviewed medical assessment; (1) Myocardial infarction (2) Renal failure--improved with fluids. (3) Sepsis (4) Syncope (5) UTI (urinary tract infection) No new Stroke. Discussed patient wishes. Has not discussed with patient about her wishes. Dell does not believe patient would want feeding tube. [facility] care. Confirmed DNR/DNI. He will be here later today to sign outside the hospital form. He has no preference of Hospice Agency. Would like recommendation of Nursing Facility. Spoke with Alexandra ALSTON and Dr. Jarrett and updated plan ZO DAVIS May 15, 2018 11:29
--- NOTE | 2018-05-15 14:54 | PDOC ---
PROGRESS NOTES Assessment Assessment IMPRESSION: Metabolic encephalopathy. UTI. HTN. HLD. DM. Dementia baseline. DM. Old stroke. RECOMMENDATIONS/PLAN: Continue ASA daily. Continue Lipitor HS. Treat medical diseases. OK to go back to [place]. Past Medical History Cardiovascular: HTN, Hyperlipidemia CENTRAL NERVOUS SYSTEM: CVA, Dementia GI: GERD, Other (dysphagia) Endocrine: Diabetes, Osteoporosis Past Surgical History No pertinent history Family History Non contributory. Allergies Coded Allergies: doxycycline (Verified Allergy, Unknown, 11/04/16) MEDICATIONS: Refer to [facility] REVIEW OF SYSTEMS: Constitutional: No cachexia. Head: No traumatic brain or head injury. Skin: No edema, or rash. Ear: No infection. Eyes: No vision loss, or diplopia. Nose: No bleeding or purulent discharges. Hearing: Hearing decrease. Neck: No injury. Breast: No history of cancer, masses, or discharges. Cardiac: HTN, HLD Pulmonary: No COPD. GI: No GI Ulcer, GI bleeding Urinary/genital: UTI. Endocrine: Diabetes Mellitus. Skeletomuscular: No muscular atrophy, deformity Neurological: see HP. Psychiatric: Denies drug use/abuse. Otherwise, not [id number] review of systems. PHYSICAL EXAMINATION: General appearance in no acute distress. HEENT: Normocephalic and nontraumatic. Eyes, nose, ears, and throat are unremarkable. Hearing decrease. Neck is supple. No lymphadenopathy. No bruits are heard over the carotid artery. No Crepitus. Cardiovascular: S1, S2, regular rate and rhythm. Pulmonary: Clear to auscultation bilaterally. Abdomen: Bowel sounds are positive. Extremities: No rash, lesions, or edema. No restriction of range of motion NEUROLOGICAL EXAMINATION: Awake. Unable to communicate. Not oriented to time, place and person. PERRL. EOMI. CN: no focal findings. Muscle tone: within normal. Muscle strength: 4+ DTR: 1-2 Plantar reflex: Neutral response bilaterally Gait: not examined in bed. Sensory exam: no abnormal findings. No other cerebellar signs elicited. F-T-N test not performed due to not able to follow commands. Objective Objective Vital Signs Date Time Temp Pulse Resp B/P (MAP) Pulse Ox O2 Delivery O2 Flow Rate FiO2 05/15/18 11:30 70 140/75 05/15/18 11:14 97.3 16 99 Room Air 97.3 Intake and Output 05/15/18 07:00 Intake Total 0 ml Balance 0 ml Intake Oral 0 ml # Voids 8 # Bowel Movements 6 Vitals Signs Vitals VS - Last 72 Hours, by Label Date Time Temp Pulse Resp B/P (MAP) Pulse Ox O2 Delivery O2 Flow Rate FiO2 05/15/18 11:30 70 140/75 05/15/18 11:28 70 140/75 05/15/18 11:21 70 140/75 (96) 05/15/18 11:14 97.3 71 16 154/86 (108) 99 Room Air 97.3 05/15/18 08:00 Room Air 05/15/18 07:20 97.6 67 16 182/72 (108) 98 Room Air 97.6 05/15/18 06:08 71 126/61 05/15/18 06:08 71 126/61 05/15/18 05:59 71 126/61 (82) 05/15/18 03:00 98.5 89 16 162/79 (106) 98 Room Air 98.5 05/14/18 23:50 76 151/65 05/14/18 23:50 76 151/65 05/14/18 23:42 98.4 79 16 151/65 (93) 98 Room Air 98.4 05/14/18 20:42 74 176/84 05/14/18 19:25 Room Air 05/14/18 19:00 98.3 74 18 176/84 (114) 95 Room Air 98.3 05/14/18 17:54 74 186/99 05/14/18 17:54 74 186/99 05/14/18 15:00 98.0 74 16 186/99 (128) 98 Room Air 98.0 05/14/18 11:43 76 146/69 05/14/18 11:43 76 146/69 05/14/18 11:10 98.0 76 16 146/69 (94) 98 Room Air 98.0 05/14/18 08:00 Room Air 05/14/18 07:25 98.3 68 18 183/75 (111) 97 Room Air 98.3 Laboratory Laboratory Laboratory Tests Test 05/14/18 17:14 05/14/18 20:38 05/15/18 05:00 05/15/18 05:20 Glucose (Fingerstick) 110 mg/dL (70-99) 107 mg/dL (70-99) Sodium Level 139 mmol/L (136-145) Potassium Level 3.5 mmol/L (3.5-5.1) Chloride Level 104 mmol/L (98-107) Carbon Dioxide Level 25 mmol/L (21-32) Anion Gap 10 (6-14) Blood Urea Nitrogen 29 mg/dL (7-20) Creatinine 0.8 mg/dL (0.6-1.0) Estimated GFR (Cockcroft-Gault) 69.2 Glucose Level 201 mg/dL (70-99) Calcium Level 8.8 mg/dL (8.5-10.1) White Blood Count 6.8 x10^3/uL (4.0-11.0) Red Blood Count 4.12 x10^6/uL (3.50-5.40) Hemoglobin 11.8 g/dL (12.0-15.5) Hematocrit 35.6 % (36.0-47.0) Mean Corpuscular Volume 86 fL (79-100) Mean Corpuscular Hemoglobin 29 pg (25-35) Mean Corpuscular Hemoglobin Concent 33 g/dL (31-37) Red Cell Distribution Width 15.5 % (11.5-14.5) Platelet Count 355 x10^3/uL (140-400) Neutrophils (%) (Auto) 67 % (31-73) Lymphocytes (%) (Auto) 25 % (24-48) Monocytes (%) (Auto) 6 % (0-9) Eosinophils (%) (Auto) 1 % (0-3) Basophils (%) (Auto) 1 % (0-3) Neutrophils # (Auto) 4.6 x10^3uL (1.8-7.7) Lymphocytes # (Auto) 1.7 x10^3/uL (1.0-4.8) Monocytes # (Auto) 0.4 x10^3/uL (0.0-1.1) Eosinophils # (Auto) 0.1 x10^3/uL (0.0-0.7) Basophils # (Auto) 0.0 x10^3/uL (0.0-0.2) Test 05/15/18 07:49 05/15/18 10:57 Glucose (Fingerstick) 227 mg/dL (70-99) 206 mg/dL (70-99) Microbiology 05/10/18 Blood Culture - Final, Complete NO GROWTH AFTER 5 DAYS 05/10/18 Urine Culture - Final, Complete 05/10/18 Urine Culture Result 1 (PREM) - Final, Complete 05/10/18 Antimicrobic Susceptibility - Final, Complete Comment Review of Relevant I have reviewed the following items violet (where applicable) has been applied. MEHNAZ NEWMAN MD May 15, 2018 14:54
[2018-05-15] MEDS: ATORVASTATIN CALCIUM 10 MG TABLET. PO SCH (21:00)
[2018-05-16 03:01] VITALS: BP 139/64
[2018-05-16] MEDS: NITROGLYCERIN OINT 1 GM PACKET. TP SCH ×2 (05:48→11:46)
[2018-05-16] MEDS: METOPROLOL TARTRATE 5 MG/5 ML VIAL. IVP SCH ×2 (05:49→11:36)
[2018-05-16 07:00] VITALS: BP 174/75
[2018-05-16 07:48] LABS: BASO # 0.1 x10^3/uL (0.0-0.2); BASO % 1 % (0-3); EOS # 0.1 x10^3/uL (0.0-0.7); EOS % 1 % (0-3); HEMATOCRIT 33.2 % (36.0-47.0); LYMPH # 1.7 x10^3/uL (1.0-4.8); LYMPH % 23 % (24-48); MEAN CORPUSCULAR HEMOGLOBIN 29 pg (25-35); MEAN CORPUSCULAR HGB CONC 33 g/dL (31-37); MEAN CORPUSCULAR VOLUME 87 fL (79-100); MONO # 0.6 x10^3/uL (0.0-1.1); MONO % 8 % (0-9); NEUT # 5.1 x10^3uL (1.8-7.7); NEUT % 68 % (31-73); PLATELET COUNT 362 x10^3/uL (140-400); RED BLOOD COUNT 3.82 x10^6/uL (3.50-5.40); RED CELL DISTRIBUTION WIDTH 15.5 % (11.5-14.5); WHITE BLOOD COUNT 7.5 x10^3/uL (4.0-11.0)
[2018-05-16] MEDS: INSULIN LISPRO 300 UNITS/3 ML INSULN.PEN. SQ SCH ×2 (08:00→11:43)
[2018-05-16 08:15] LABS: CALCIUM 8.9 mg/dL (8.5-10.1); CREATININE 0.8 mg/dL (0.6-1.0); GFR 69.2; POTASSIUM 4.5 mmol/L (3.5-5.1)
[2018-05-16] MEDS: LACTOBACILLUS RHAMNOSUS GG 1 CAPSULE. PO SCH (09:00)
[2018-05-16] MEDS: CALCIUM CARB/VIT D3 500/200 TABLET. PO SCH (09:00)
[2018-05-16] MEDS: DOCUSATE SODIUM 100 MG CAPSULE. PO SCH (09:00)
[2018-05-16] MEDS: AMINO AC 3%/ELECTROLYTE/GLYCER 1,000 ML IV SCH (09:39)
[2018-05-16] MEDS: ASPIRIN 300 MG SUPP.RECT PR SCH (09:41)
[2018-05-16] MEDS: CHLORHEXIDINE 0.12% 15 ML MOUTHWASH. MM SCH (09:46)
[2018-05-16] MEDS: NYSTATIN 100,000 UNITS/ML 5 ML ORAL.SUSP. SWSW SCH ×2 (09:46→13:01)
[2018-05-16] MEDS: INSULIN GLARGINE 300 UNITS/3 ML INSULN.PEN. SQ SCH (09:50)
--- NOTE | 2018-05-16 10:42 | DISCH ---
DISCHARGE DISCHARGE INFORMATION: FINAL DIAGNOSIS Problems Medical Problems: (1) Myocardial infarction Status: Acute (2) Renal failure Status: Acute (3) Sepsis Status: Acute (4) Syncope Status: Acute (5) UTI (urinary tract infection) Status: Acute CONDITION ON DISCHARGE: Guarded CODE STATUS: Code Status: DNR/DNI USP: SNF STAY <30 DAYS: No HOSPICE: HOSPICE: Yes HOSPICE EVAL & TREAT: Yes LTAC: ADMIT TO LTAC: No POST DISCHARGE ORDERS: ACTIVITY ORDERS: Bedrest today DIET AFTER DISCHARGE: pleasure feeds DISCHARGE MEDICATIONS: Home Meds Reported Medications Phenyleph/Mineral Oil/Petrolat (Gnp Hemorrhoidal Ointment) 57 Gm Oint.appl, 57 GM RC DAILY for hemorrhoids, MISC 05/10/18 Calcium Carbonate/Vitamin D3 (Calcium 500 + Vit D 400 Tablet) 1 Each Tablet, 1 EACH PO DAILY for supplement, TAB 05/10/18 Nystatin (NYSTATIN) 100,000 Unit/1 Ml Oral.susp, 5 ML PO QID for candidiasis, # 200 ML 05/10/18 Insulin Aspart (NOVOLOG FLEXPEN) 100 Unit/1 Ml Insuln.pen, 0-10 UNIT SQ QIDACHS for diabetes, SYR 05/10/18 Magnesium Hydroxide (MILK OF MAGNESIA) 400 Mg/5 Ml Oral.susp, 400 MG PO TID PRN for HEARTBURN / GAS, MISC 05/10/18 Melatonin (MELATONIN) 3 Mg Tablet, 3 MG PO HS for insomnia, TAB 05/10/18 Atorvastatin Calcium (LIPITOR) 10 Mg Tablet, 10 MG PO HS for FOR CHOLESTEROL, # 30 TAB 0 Refills 05/10/18 Insulin Glargine,Hum.rec.anlog (LANTUS SOLOSTAR) 100 Unit/1 Ml Insuln.pen, 16 UNIT SQ DAILY for diabetes, #15 ML 3 Refills 05/10/18 Docusate Sodium (DOCUSATE SODIUM) 100 Mg Capsule, 100 MG PO BID for constipation , CAP 05/10/18 Chlorhexidine Gluconate (PERIDEX) 15 Ml Mouthwash, 15 ML MM BID for peridontal disease, ML 05/10/18 Bisacodyl (BISACODYL) 10 Mg Supp.rect, 10 MG RC PRN DAILY PRN for CONSTIPATION, SUPP.RECT 0 Refills 05/10/18 Acetaminophen (ACETAMINOPHEN) 500 Mg Tablet, 650 MG PO Q4HRS PRN for PAIN, TAB 05/10/18 HARLEY HENDERSON III DO May 16, 2018 10:42
--- NOTE | 2018-05-16 10:56 | PDOC ---
PROGRESS NOTES Chief Complaint Chief Complaint Sepsis, UTI, NSTEMI, Renal insufficiency History of Present Illness History of Present Illness Pt was seen at bedside. Patient is non-verbal and resting in no apparent distress. Patient is supposed to go to [facility] per OA. DNR for outside hospital signed this morning. Vitals Vitals Vital Signs Date Time Temp Pulse Resp B/P (MAP) Pulse Ox O2 Delivery O2 Flow Rate FiO2 05/16/18 07:00 97.0 65 16 174/75 (108) 100 Room Air 97.0 Physical Exam Physical Exam Pt was seen awake but remained nonverbal, NAD, failure to thrive General: No acute distress, Other (Somnolent, minimally responsive to verbal command.) Heart: Regular rate, Normal S1, Normal S2, Other (2/6 systolic murmur ) Lungs: Clear Abdomen: Soft Extremities: No clubbing, No edema, Normal pulses Skin: No breakdown, No significant lesion Labs LABS Laboratory Tests Test 05/15/18 10:57 05/15/18 16:43 05/15/18 20:10 05/16/18 07:18 Glucose (Fingerstick) 206 mg/dL (70-99) 175 mg/dL (70-99) 188 mg/dL (70-99) White Blood Count 7.5 x10^3/uL (4.0-11.0) Red Blood Count 3.82 x10^6/uL (3.50-5.40) Hemoglobin 11.0 g/dL (12.0-15.5) Hematocrit 33.2 % (36.0-47.0) Mean Corpuscular Volume 87 fL (79-100) Mean Corpuscular Hemoglobin 29 pg (25-35) Mean Corpuscular Hemoglobin Concent 33 g/dL (31-37) Red Cell Distribution Width 15.5 % (11.5-14.5) Platelet Count 362 x10^3/uL (140-400) Neutrophils (%) (Auto) 68 % (31-73) Lymphocytes (%) (Auto) 23 % (24-48) Monocytes (%) (Auto) 8 % (0-9) Eosinophils (%) (Auto) 1 % (0-3) Basophils (%) (Auto) 1 % (0-3) Neutrophils # (Auto) 5.1 x10^3uL (1.8-7.7) Lymphocytes # (Auto) 1.7 x10^3/uL (1.0-4.8) Monocytes # (Auto) 0.6 x10^3/uL (0.0-1.1) Eosinophils # (Auto) 0.1 x10^3/uL (0.0-0.7) Basophils # (Auto) 0.1 x10^3/uL (0.0-0.2) Sodium Level 137 mmol/L (136-145) Potassium Level 4.5 mmol/L (3.5-5.1) Chloride Level 104 mmol/L (98-107) Carbon Dioxide Level 23 mmol/L (21-32) Anion Gap 10 (6-14) Blood Urea Nitrogen 29 mg/dL (7-20) Creatinine 0.8 mg/dL (0.6-1.0) Estimated GFR (Cockcroft-Gault) 69.2 Glucose Level 175 mg/dL (70-99) Calcium Level 8.9 mg/dL (8.5-10.1) Test 05/16/18 08:08 Glucose (Fingerstick) 178 mg/dL (70-99) Review of Systems Review of Systems patient unresponsive to questioning. Assessment and Plan Assessmemt and Plan Problems Medical Problems: (1) Myocardial infarction Status: Acute (2) Renal failure Status: Acute (3) Sepsis Status: Acute (4) Syncope Status: Acute (5) UTI (urinary tract infection) Status: Acute Assessment: 1. UTI - resolved 2. metabolic encephaly - resolved 3. HTN 4. DM2 Plan: 1. patient unresponsive to questioning, ok to discharge to [facility] per Palliative care and DPOA 2. home meds 3. labs 4. Asa daily 5. Appreciate subspecialty input Comment Review of Relevant I have reviewed the following items violet (where applicable) has been applied. Labs Laboratory Tests Test 05/14/18 11:31 05/14/18 17:14 05/14/18 20:38 05/15/18 05:00 Glucose (Fingerstick) 193 mg/dL (70-99) 110 mg/dL (70-99) 107 mg/dL (70-99) Sodium Level 139 mmol/L (136-145) Potassium Level 3.5 mmol/L (3.5-5.1) Chloride Level 104 mmol/L (98-107) Carbon Dioxide Level 25 mmol/L (21-32) Anion Gap 10 (6-14) Blood Urea Nitrogen 29 mg/dL (7-20) Creatinine 0.8 mg/dL (0.6-1.0) Estimated GFR (Cockcroft-Gault) 69.2 Glucose Level 201 mg/dL (70-99) Calcium Level 8.8 mg/dL (8.5-10.1) Test 05/15/18 05:20 05/15/18 07:49 05/15/18 10:57 05/15/18 16:43 White Blood Count 6.8 x10^3/uL (4.0-11.0) Red Blood Count 4.12 x10^6/uL (3.50-5.40) Hemoglobin 11.8 g/dL (12.0-15.5) Hematocrit 35.6 % (36.0-47.0) Mean Corpuscular Volume 86 fL (79-100) Mean Corpuscular Hemoglobin 29 pg (25-35) Mean Corpuscular Hemoglobin Concent 33 g/dL (31-37) Red Cell Distribution Width 15.5 % (11.5-14.5) Platelet Count 355 x10^3/uL (140-400) Neutrophils (%) (Auto) 67 % (31-73) Lymphocytes (%) (Auto) 25 % (24-48) Monocytes (%) (Auto) 6 % (0-9) Eosinophils (%) (Auto) 1 % (0-3) Basophils (%) (Auto) 1 % (0-3) Neutrophils # (Auto) 4.6 x10^3uL (1.8-7.7) Lymphocytes # (Auto) 1.7 x10^3/uL (1.0-4.8) Monocytes # (Auto) 0.4 x10^3/uL (0.0-1.1) Eosinophils # (Auto) 0.1 x10^3/uL (0.0-0.7) Basophils # (Auto) 0.0 x10^3/uL (0.0-0.2) Glucose (Fingerstick) 227 mg/dL (70-99) 206 mg/dL (70-99) 175 mg/dL (70-99) Test 05/15/18 20:10 05/16/18 07:18 05/16/18 08:08 Glucose (Fingerstick) 188 mg/dL (70-99) 178 mg/dL (70-99) White Blood Count 7.5 x10^3/uL (4.0-11.0) Red Blood Count 3.82 x10^6/uL (3.50-5.40) Hemoglobin 11.0 g/dL (12.0-15.5) Hematocrit 33.2 % (36.0-47.0) Mean Corpuscular Volume 87 fL (79-100) Mean Corpuscular Hemoglobin 29 pg (25-35) Mean Corpuscular Hemoglobin Concent 33 g/dL (31-37) Red Cell Distribution Width 15.5 % (11.5-14.5) Platelet Count 362 x10^3/uL (140-400) Neutrophils (%) (Auto) 68 % (31-73) Lymphocytes (%) (Auto) 23 % (24-48) Monocytes (%) (Auto) 8 % (0-9) Eosinophils (%) (Auto) 1 % (0-3) Basophils (%) (Auto) 1 % (0-3) Neutrophils # (Auto) 5.1 x10^3uL (1.8-7.7) Lymphocytes # (Auto) 1.7 x10^3/uL (1.0-4.8) Monocytes # (Auto) 0.6 x10^3/uL (0.0-1.1) Eosinophils # (Auto) 0.1 x10^3/uL (0.0-0.7) Basophils # (Auto) 0.1 x10^3/uL (0.0-0.2) Sodium Level 137 mmol/L (136-145) Potassium Level 4.5 mmol/L (3.5-5.1) Chloride Level 104 mmol/L (98-107) Carbon Dioxide Level 23 mmol/L (21-32) Anion Gap 10 (6-14) Blood Urea Nitrogen 29 mg/dL (7-20) Creatinine 0.8 mg/dL (0.6-1.0) Estimated GFR (Cockcroft-Gault) 69.2 Glucose Level 175 mg/dL (70-99) Calcium Level 8.9 mg/dL (8.5-10.1) Laboratory Tests Test 05/15/18 10:57 05/15/18 16:43 05/15/18 20:10 05/16/18 07:18 Glucose (Fingerstick) 206 mg/dL (70-99) 175 mg/dL (70-99) 188 mg/dL (70-99) White Blood Count 7.5 x10^3/uL (4.0-11.0) Red Blood Count 3.82 x10^6/uL (3.50-5.40) Hemoglobin 11.0 g/dL (12.0-15.5) Hematocrit 33.2 % (36.0-47.0) Mean Corpuscular Volume 87 fL (79-100) Mean Corpuscular Hemoglobin 29 pg (25-35) Mean Corpuscular Hemoglobin Concent 33 g/dL (31-37) Red Cell Distribution Width 15.5 % (11.5-14.5) Platelet Count 362 x10^3/uL (140-400) Neutrophils (%) (Auto) 68 % (31-73) Lymphocytes (%) (Auto) 23 % (24-48) Monocytes (%) (Auto) 8 % (0-9) Eosinophils (%) (Auto) 1 % (0-3) Basophils (%) (Auto) 1 % (0-3) Neutrophils # (Auto) 5.1 x10^3uL (1.8-7.7) Lymphocytes # (Auto) 1.7 x10^3/uL (1.0-4.8) Monocytes # (Auto) 0.6 x10^3/uL (0.0-1.1) Eosinophils # (Auto) 0.1 x10^3/uL (0.0-0.7) Basophils # (Auto) 0.1 x10^3/uL (0.0-0.2) Sodium Level 137 mmol/L (136-145) Potassium Level 4.5 mmol/L (3.5-5.1) Chloride Level 104 mmol/L (98-107) Carbon Dioxide Level 23 mmol/L (21-32) Anion Gap 10 (6-14) Blood Urea Nitrogen 29 mg/dL (7-20) Creatinine 0.8 mg/dL (0.6-1.0) Estimated GFR (Cockcroft-Gault) 69.2 Glucose Level 175 mg/dL (70-99) Calcium Level 8.9 mg/dL (8.5-10.1) Test 05/16/18 08:08 Glucose (Fingerstick) 178 mg/dL (70-99) Microbiology 05/10/18 Blood Culture - Final, Complete NO GROWTH AFTER 5 DAYS 05/10/18 Urine Culture - Final, Complete 05/10/18 Urine Culture Result 1 (PREM) - Final, Complete 05/10/18 Antimicrobic Susceptibility - Final, Complete Medications Current Medications Sodium Chloride 1,000 ml @ 100 mls/hr Q10H IV Last administered on 05/10/18at 10:17; Start 05/10/18 at 09:45; Stop 05/10/18 at 12:49; Status DC Sodium Chloride 1,000 ml @ 1,560 mls/hr Q39M IV Last administered on at 11:15; Start 05/10/18 at 10:22; Stop 05/10/18 at 11:22; Status DC Ceftriaxone Sodium 50 ml @ 100 mls/hr 1X ONCE IV Last administered on at 11:15; Start 05/10/18 at 10:30; Stop 05/10/18 at 10:59; Status DC Aspirin (Children'S Aspirin) 324 mg 1X ONCE PO ; Start 05/10/18 at 10:30; Stop 05/10/18 at 10:31; Status DC Aspirin (Aspirin) 300 mg 1X ONCE NC ; Start 05/10/18 at 11:30; Stop 05/10/18 at 11:33; Status DC Acetaminophen (Tylenol) 500 mg PRN Q6HRS PRN PO MILD PAIN / TEMP; Start at 12:45; Status Cancel Ondansetron HCl (Zofran) 4 mg PRN Q6HRS PRN IV NAUSEA/VOMITING; Start at 12:45 Ondansetron HCl (Zofran Odt) 4 mg PRN Q6HRS PRN PO NAUSEA/VOMITING; Start at 12:45 Labetalol HCl (Normodyne Iv Push) 20 mg PRN Q2HR PRN IVP HYPERTENSION, SEE COMMENTS Last administered on 05/14/18at 20:42; Start 05/10/18 at 12:45 Insulin Human Lispro (HumaLOG) 0-9 UNITS TIDWMEALS SQ Last administered on 05/15at 11:38; Start 05/10/18 at 17:00 Dextrose (Dextrose 50%-Water Syringe) 12.5 gm PRN Q15MIN PRN IV SEE COMMENTS; Start 05/10/18 at 12:45 Insulin Human Lispro (HumaLOG) 10 units TIDAC SQ ; Start 05/10/18 at 16:30; Stop 05/10/18 at 18:14; Status DC Insulin Human Lispro (HumaLOG) 10 units 1X ONCE SQ ; Start 05/10/18 at 13:00; Stop 05/10/18 at 13:01; Status DC Insulin Glargine (Lantus) 20 units QHS SQ ; Start 05/10/18 at 21:00; Stop at 21:00; Status DC Labetalol HCl (Normodyne Iv Push) 20 mg 1X ONCE IVP ; Start 05/10/18 at 13:00 ; Stop 05/10/18 at 13:01; Status DC Ceftriaxone Sodium (Rocephin) 1 gm Q24H IVP Last administered on 05/15/18at 11: 18; Start 05/11/18 at 11:00 Amino Acids/ Glycerin/ Electrolytes 1,000 ml @ 100 mls/hr Q10H IV Last administered on 05/16/18at 09:39; Start 05/10/18 at 13:30 Lactobacillus Rhamnosus (Culturelle) 1 cap BID PO ; Start 05/10/18 at 21:00 Potassium Chloride (Klor-Con) 40 meq 1X ONCE PO Last administered on at 15:16; Start 05/10/18 at 14:30; Stop 05/10/18 at 14:31; Status DC Acetaminophen (Tylenol) 650 mg PRN Q4HRS PRN PO MILD PAIN; Start 05/10/18 at 14:15 Atorvastatin Calcium (Lipitor) 10 mg HS PO ; Start 05/10/18 at 21:00 Bisacodyl (Dulcolax Supp) 10 mg PRN DAILY PRN RC CONSTIPATION; Start 05/10/18 at 14:15 Chlorhexidine Gluconate (Peridex) 15 ml BID MM Last administered on 05/15/18at 09:14; Start 05/10/18 at 15:00 Docusate Sodium (Colace) 100 mg BID PO ; Start 05/10/18 at 21:00 Magnesium Hydroxide (Milk Of Magnesia) 400 mg PRN TID PRN PO CONSTIPATION; Start 05/10/18 at 14:15 Phenyleph/Shark Oil/Min Oil/Petrol (Preparation H) 1 rachael DAILY RC ; Start 05/11 at 09:00; Stop 05/11/18 at 09:00; Status DC Calcium/Vitamin D (Oscal D 500mg/ 200uts) 1 tab DAILY PO ; Start 05/11/18 at 09 :00 Non-Formulary Medication (Melatonin ) 3 mg HS PO ; Start 05/10/18 at 21:00; Status UNV Nystatin (Nystatin Oral Susp) 5 ml [id number] Last administered on 05/15/18at 17:29; Start 05/10/18 at 17:00 Aspirin (Daxa Aspirin) 325 mg 1X ONCE PO Last administered on 05/10/18at 15: 30; Start 05/10/18 at 15:30; Stop 05/10/18 at 15:31; Status DC Metoprolol Tartrate (Lopressor) 25 mg BID PO Last administered on 05/11/18at 02 :41; Start 05/10/18 at 17:30; Stop 05/11/18 at 14:25; Status DC Aspirin (Ecotrin) 81 mg [id number] PO ; Start 05/11/18 at 08:00; Stop at 15:23; Status DC Heparin Sodium (Porcine) (Heparin Sodium) 2,700 unit 1X ONCE IV Last administered on 05/10/18at 18:34; Start 05/10/18 at 17:00; Stop 05/11/18 at 16 :33; Status DC Heparin Sodium/ Dextrose 500 ml @ 0 mls/hr CONT PRN IV SEE I/O RECORD Last administered on 05/10/18at 18:36; Start 05/10/18 at 17:00; Stop 05/11/18 at 16 :33; Status DC Heparin Sodium (Porcine) (Heparin Sodium) 1,100 unit PRN Q6HRS PRN IV FOR UFH LEVEL LESS THAN 0.2; Start 05/10/18 at 17:00; Stop 05/11/18 at 16:33; Status DC Info (Anti-Coagulation Monitoring By Pharmacy) 1 each PRN DAILY PRN MC SEE COMMENTS Last administered on 05/11/18at 11:14; Start 05/10/18 at 17:00; Stop 05/12/18 at 10:30; Status DC Insulin Glargine (Lantus) 16 units DAILY SQ Last administered on 05/16/18at 09: 50; Start 05/11/18 at 09:00 Phenyleph/Shark Oil/Min Oil/Petrol (Preparation H) 1 rachael DAILY PRN RC hemorrhoid; Start 05/11/18 at 09:00 Carvedilol (Coreg) 6.25 mg BIDWMEALS PO ; Start 05/11/18 at 17:00; Stop at 17:00; Status DC Metoprolol Tartrate (Lopressor Vial) 5 mg Q6HRS IVP Last administered on at 05:49; Start 05/11/18 at 16:00 Aspirin (Aspirin) 150 mg DAILY NC Last administered on 05/16/18at 09:41; Start 05/12/18 at 09:00 Insulin Human Lispro (HumaLOG) 3 units 1X ONCE SQ Last administered on at 22:21; Start 05/11/18 at 22:15; Stop 05/11/18 at 22:16; Status DC Nitroglycerin (Nitro-Bid Oint) 1 inch Q6HRS TP Last administered on 05/16/18at 05:48; Start 05/12/18 at 08:00 Active Scripts Active Reported Gnp Hemorrhoidal Ointment (Phenyleph/Mineral Oil/Petrolat) 57 Gm Oint.appl 57 Gm RC DAILY Calcium 500 + Vit D 400 Tablet (Calcium Carbonate/Vitamin D3) 1 Each Tablet 1 Each PO DAILY Nystatin 100,000 Unit/1 Ml Oral.susp 5 Ml PO QID Milk Of Magnesia (Magnesium Hydroxide) 400 Mg/5 Ml Oral.susp 400 Mg PO TID PRN Docusate Sodium 100 Mg Capsule 100 Mg PO BID Peridex (Chlorhexidine Gluconate) 15 Ml Mouthwash 15 Ml MM BID Bisacodyl 10 Mg Supp.rect 10 Mg RC PRN DAILY PRN Acetaminophen 500 Mg Tablet 650 Mg PO Q4HRS PRN Vitals/I & O Vital Sign - Last 24 Hours 12/3/05/15/18 05/15/18 05/15/18 11:14 11:21 11:28 11:30 Temp 97.3 97.3 Pulse 71 70 70 70 Resp 16 B/P (MAP) 154/86 (108) 140/75 (96) 140/75 140/75 Pulse Ox 99 O2 Delivery Room Air 05/15/18 05/15/18 05/15/18 05/15/18 15:07 17:26 17:32 17:32 Temp 97.3 97.3 Pulse 66 82 82 82 Resp 16 B/P (MAP) 135/71 (92) 162/98 (119) 162/98 162/98 Pulse Ox 100 O2 Delivery Room Air 05/15/18 05/15/18 05/15/18 05/15/18 18:21 19:25 19:25 23:00 Temp 97.6 97.5 97.3 97.6 97.5 97.3 Pulse 66 70 77 Resp 16 16 17 B/P (MAP) 149/71 (97) 159/77 (104) 161/66 (97) Pulse Ox 100 99 99 O2 Delivery Room Air Room Air Room Air 05/15/18 05/15/18 05/16/18 05/16/18 23:40 23:41 03:01 05:48 Temp 97.8 97.8 Pulse 71 77 67 71 Resp 17 B/P (MAP) 161/66 161/66 139/64 (89) 160/93 Pulse Ox 99 O2 Delivery Room Air 05/16/18 05/16/18 05:49 07:00 Temp 97.0 97.0 Pulse 70 65 Resp 16 B/P (MAP) 160/93 174/75 (108) Pulse Ox 100 O2 Delivery Room Air Intake and Output 05/15/18 05/15/18 05/16/18 15:00 23:00 07:00 Intake Total 0 ml 0 ml 0 ml Balance 0 ml 0 ml 0 ml Nutrition Consultation Dietary Evaluation: Recommendations by RD: PPN/TPN Comments: Continue w/PPN for short-term nutrition needs Nutrition as appropriate per goals of care Expected Outcomes/Goals: Nutrition as appropriate per goals of care - goal ongoing Malnutrition Findings: Body Fat Depletion (Non Severe: Mild Depletion Weight Status: Underweight CASTLENIAL K III DO May 16, 2018 10:56
[2018-05-16] MEDS: cefTRIAXone IV Push 1 GM VIAL. IVP SCH (11:22)
[2018-05-16 11:30] VITALS: BP 175/83
[2018-05-16 11:46] VITALS: BP 175/83
--- NOTE | 2018-05-16 19:02 | PDOC ---
PROGRESS NOTES Assessment Assessment Metabolic encephalopathy. UTI. HTN. HLD. DM. Dementia baseline. DM. Old stroke. Debilitating. RECOMMENDATIONS/PLAN: Continue ASA daily. Continue Lipitor HS. Treat medical diseases. FU with PCP. Past Medical History Cardiovascular: HTN, Hyperlipidemia CENTRAL NERVOUS SYSTEM: CVA, Dementia GI: GERD, Other (dysphagia) Endocrine: Diabetes, Osteoporosis Past Surgical History No pertinent history Family History Non contributory. Allergies Coded Allergies: doxycycline (Verified Allergy, Unknown, 11/04/16) MEDICATIONS: Refer to [facility] REVIEW OF SYSTEMS: Constitutional: No cachexia. Head: No traumatic brain or head injury. Skin: No edema, or rash. Ear: No infection. Eyes: No vision loss, or diplopia. Nose: No bleeding or purulent discharges. Hearing: Hearing decrease. Neck: No injury. Breast: No history of cancer, masses, or discharges. Cardiac: HTN, HLD Pulmonary: No COPD. GI: No GI Ulcer, GI bleeding Urinary/genital: UTI. Endocrine: Diabetes Mellitus. Skeletomuscular: No muscular atrophy, deformity Neurological: see HP. Psychiatric: Denies drug use/abuse. Otherwise, not [id number] review of systems. PHYSICAL EXAMINATION: General appearance in no acute distress. HEENT: Normocephalic and nontraumatic. Eyes, nose, ears, and throat are unremarkable. Hearing decrease. Neck is supple. No lymphadenopathy. No bruits are heard over the carotid artery. No Crepitus. Cardiovascular: S1, S2, regular rate and rhythm. Pulmonary: Clear to auscultation bilaterally. Abdomen: Bowel sounds are positive. Extremities: No rash, lesions, or edema. No restriction of range of motion NEUROLOGICAL EXAMINATION: Sleepiness. Unable to communicate. Not oriented to time, place and person. PERRL. EOMI. CN: no focal findings. Muscle tone: within normal. Muscle strength: 4+ DTR: 1-2 Plantar reflex: Neutral response bilaterally Gait: not examined in bed. Sensory exam: no abnormal findings. No other cerebellar signs elicited. F-T-N test not performed due to not able to follow commands. Objective Objective Vital Signs Date Time Temp Pulse Resp B/P (MAP) Pulse Ox O2 Delivery O2 Flow Rate FiO2 05/16/18 11:46 56 175/83 05/16/18 11:30 96.6 16 91 Room Air 96.6 Intake and Output 05/16/18 07:00 Intake Total 0 ml Balance 0 ml Intake Oral 0 ml # Voids 9 # Bowel Movements 2 Vitals Signs Vitals VS - Last 72 Hours, by Label Date Time Temp Pulse Resp B/P (MAP) Pulse Ox O2 Delivery O2 Flow Rate FiO2 05/16/18 11:46 56 175/83 05/16/18 11:36 68 175/83 05/16/18 11:30 96.6 65 16 175/83 (113) 91 Room Air 96.6 05/16/18 08:00 Room Air 05/16/18 07:00 97.0 65 16 174/75 (108) 100 Room Air 97.0 05/16/18 05:49 70 160/93 05/16/18 05:48 71 160/93 05/16/18 03:01 97.8 67 17 139/64 (89) 99 Room Air 97.8 05/15/18 23:41 77 161/66 05/15/18 23:40 71 161/66 05/15/18 23:00 97.3 77 17 161/66 (97) 99 Room Air 97.3 05/15/18 19:25 Room Air 05/15/18 19:25 97.5 70 16 159/77 (104) 99 97.5 05/15/18 18:21 97.6 66 16 149/71 (97) 100 Room Air 97.6 05/15/18 17:32 82 162/98 05/15/18 17:32 82 162/98 05/15/18 17:26 82 162/98 (119) 05/15/18 15:07 97.3 66 16 135/71 (92) 100 Room Air 97.3 05/15/18 11:30 70 140/75 05/15/18 11:28 70 140/75 05/15/18 11:21 70 140/75 (96) 05/15/18 11:14 97.3 71 16 154/86 (108) 99 Room Air 97.3 05/15/18 08:00 Room Air 05/15/18 07:20 97.6 67 16 182/72 (108) 98 Room Air 97.6 Laboratory Laboratory Laboratory Tests Test 05/15/18 20:10 05/16/18 07:18 05/16/18 08:08 05/16/18 11:16 Glucose (Fingerstick) 188 mg/dL (70-99) 178 mg/dL (70-99) 198 mg/dL (70-99) White Blood Count 7.5 x10^3/uL (4.0-11.0) Red Blood Count 3.82 x10^6/uL (3.50-5.40) Hemoglobin 11.0 g/dL (12.0-15.5) Hematocrit 33.2 % (36.0-47.0) Mean Corpuscular Volume 87 fL (79-100) Mean Corpuscular Hemoglobin 29 pg (25-35) Mean Corpuscular Hemoglobin Concent 33 g/dL (31-37) Red Cell Distribution Width 15.5 % (11.5-14.5) Platelet Count 362 x10^3/uL (140-400) Neutrophils (%) (Auto) 68 % (31-73) Lymphocytes (%) (Auto) 23 % (24-48) Monocytes (%) (Auto) 8 % (0-9) Eosinophils (%) (Auto) 1 % (0-3) Basophils (%) (Auto) 1 % (0-3) Neutrophils # (Auto) 5.1 x10^3uL (1.8-7.7) Lymphocytes # (Auto) 1.7 x10^3/uL (1.0-4.8) Monocytes # (Auto) 0.6 x10^3/uL (0.0-1.1) Eosinophils # (Auto) 0.1 x10^3/uL (0.0-0.7) Basophils # (Auto) 0.1 x10^3/uL (0.0-0.2) Sodium Level 137 mmol/L (136-145) Potassium Level 4.5 mmol/L (3.5-5.1) Chloride Level 104 mmol/L (98-107) Carbon Dioxide Level 23 mmol/L (21-32) Anion Gap 10 (6-14) Blood Urea Nitrogen 29 mg/dL (7-20) Creatinine 0.8 mg/dL (0.6-1.0) Estimated GFR (Cockcroft-Gault) 69.2 Glucose Level 175 mg/dL (70-99) Calcium Level 8.9 mg/dL (8.5-10.1) Microbiology 05/10/18 Blood Culture - Final, Complete NO GROWTH AFTER 5 DAYS 05/10/18 Urine Culture - Final, Complete 05/10/18 Urine Culture Result 1 (PREM) - Final, Complete 05/10/18 Antimicrobic Susceptibility - Final, Complete Comment Review of Relevant I have reviewed the following items violet (where applicable) has been applied. MEHNAZ NEWMAN MD May 16, 2018 19:02
== END 2018-05-16 15:32 | disposition hospice, home (50) | DRG 871 ==
LOC: ER 09:14 → 2 NORTH 10:30
PROVIDERS: ADMIT Internal Medicine; ATTEND Internal Medicine
DX: A41.9 Sepsis, unspecified organism (principal); G93.41 Metabolic encephalopathy; I21.A1 Myocardial infarction type 2; E87.0 Hyperosmolality and hypernatremia; E87.1 Hypo-osmolality and hyponatremia; I69.351 Hemiplegia and hemiparesis following cerebral infarction affecting right dominant side; N17.9 Acute kidney failure, unspecified; N39.0 Urinary tract infection, site not specified; E11.22 Type 2 diabetes mellitus with diabetic chronic kidney disease; E11.65 Type 2 diabetes mellitus with hyperglycemia; E78.5 Hyperlipidemia, unspecified; E86.0 Dehydration; E87.6 Hypokalemia; F03.90 Unspecified dementia, unspecified severity, without behavioral disturbance, psychotic disturbance, mood disturbance, and anxiety; I12.9 Hypertensive chronic kidney disease with stage 1 through stage 4 chronic kidney disease, or unspecified chronic kidney disease; I69.320 Aphasia following cerebral infarction; K21.9 Gastro-esophageal reflux disease without esophagitis; M81.0 Age-related osteoporosis without current pathological fracture; N18.9 Chronic kidney disease, unspecified; R13.10 Dysphagia, unspecified; R62.7 Adult failure to thrive; Z51.5 Encounter for palliative care; Z66 Do not resuscitate; Z74.01 Bed confinement status; Z79.82 Long term (current) use of aspirin; F32.9 Major depressive disorder, single episode, unspecified; M19.90 Unspecified osteoarthritis, unspecified site; Z88.8 Allergy status to other drugs, medicaments and biological substances
CPT/HCPCS: 36415; 51701; 70450; 71045; 80048; 80053; 80061; 81001; 82010; 82803; 82962; 83605; 83735; 83880; 84443; 84484; 85007; 85025; 85027; 85520; 85610; 87040; 87086; 87186; 87641; 93005; 93306; 95816; 96361; 96365; J0690; J0696; J1644; J1815; J3490; J7030; 92526; 92610; 99291-25